=== PATIENT | male | born 1965 | race Caucasian/White ===

== ENCOUNTER 2021-12-30 18:42 | Inpatient (IN) | payer MEDICAID, SELFPAY ==
[2021-12-30] VITALS (13 sets, daily range): BP systolic 108–158; BP diastolic 70–128; PULSE 101–122; RESP 14–30; TEMP 36.7–37.8; O2SAT 21–99; BMI 22.9; BMI 23.3
--- NOTE | 2021-12-30 19:08 | ED.RN ---
PER DR POST- SUICIDAL PRECAUTIONS DISCONTINUED AT THIS TIME.
[2021-12-30 19:31] LABS: Absolute Lymphocyte Count 1.21 X10^3/uL (0.83-4.51); Absolute Neutrophil Count 13.8 X10^3/uL (2.0-7.7); Basophil# 0.05 X10^3/uL; Basophil% 0.3 % (0-1); Eosinophil# 0.01 X10^3/uL; Eosinophils% 0.1 % (0-5); Hemoglobin 16.2 g/dL (13.0-16.5); Lymphocyte # 1.21 X10^3/ul (0.83-4.51); Lymphocyte % 7.4 % (19-41); Mean Corp Hgb Conc 34.5 g/dL (32-36); Mean Corpuscular Hgb 30.1 pg (27.0-32.0); Mean Corpuscular Volume 87.4 fL (80-94); Mean Platelet Vol. 9.3 fl (6.2-12.0); Monocyte# 1.28 X10^3/uL; Monocyte% 7.8 % (0-10); NRBC Flagged by Analyzer 0 % (0-5); Neutrophil # 13.81 X10^3/uL (2.7-7.7); Neutrophil % 83.8 % (47-70); Platelet Count 284 K/mm3 (150-450); RBC Distribution Width CV 11.9 % (11.6-14.6); RBC Distribution Width SD 37.6 fl (35.1-43.9); Red Blood Count 5.38 M/mm3 (4.6-6.2); White Blood Count 16.5 K/mm3 (4.4-11.0)
--- NOTE | 2021-12-30 19:40 | EDS_ITS ---
HPI History of Present Illness Chief Complaint: Abscess Detail of Chief Complaint: Abscess dorsal distal right forearm and medial distal right leg Informant: patient Onset/Context/Timing Onset: Days Context: Sudden Onset Timing: Continuous Quality: Pain Location: Right upper and right lower extremity Current Severity: Mild Maximum Severity: Moderate Worsened by: Walking and use of extremity Relieved by: Nothing Associated Symptoms Associated Symptoms: Elevated blood sugar Narrative Narrative: Patient is a 56-year-old male with history of diabetes. He states he has not checked his blood sugar since he does not have the financial funds to purchase a monitor. Patient denies double vision, blurred vision loss of vision. Patient denies polyuria, polydipsia or nocturia. Patient denies fever, chills night sweats. Patient does endorse smoking. He denies drug use and specifically IV drug use. He is on no immunosuppressive meds. There is no history rheumatic fever, SBE, murmur, or immunosuppression. Prior similar symptoms: No Recent Illness/Hospitalization: No PFSH PFSH Medical History Anxiety Depression Diabetes Hernia PTSD (post-traumatic stress disorder) Allergy/AdvReac Type Severity Reaction Status Date / Time amoxicillin Allergy Anaphylaxis Verified 12/30/21 19:29 Penicillins [PCN] Allergy Anaphylaxis Verified 12/30/21 19:29 aspirin [ASA] AdvReac Upset Verified 12/30/21 19:29 Stomach bee venom protein (honey bee) AdvReac Anaphylaxis Verified 12/30/21 19:29 ibuprofen AdvReac Upset Verified 12/30/21 19:29 Stomach oxycodone AdvReac Upset Verified 12/30/21 19:29 Stomach Surgical History History of back surgery Hx of neck surgery Social History (Updated 12/30/21 @ 19:[address] García Rush MD) household members: none Smoking Status: Never smoker alcohol intake: never substance use type: does not use ROS ROS ED Constitutional Constitutional ED: Denies chills, fever(s), subjective, sweats or weight loss Eyes Eyes: Denies blurry vision, change in vision or diplopia ENT ENT ED: Denies ear pain, rhinorrhea or sore throat Cardiovascular Cardiovascular: Denies chest pain, orthopnea, palpitations, paroxysmal nocturnal dyspnea or racing heartbeat Respiratory/Chest Respiratory/Chest: Denies cough, dyspnea, dyspnea on exertion, orthopnea or paroxysmal nocturnal dyspnea Gastrointestinal Gastrointestinal: Denies abdominal pain, diarrhea, nausea or vomiting Genitourinary Genitourinary ED: Denies dysuria, hematuria or urinary frequency Musculoskeletal Musculoskeletal: Denies arthralgias, back pain, myalgias or neck pain Integumentary Reports abscess and rash; Denies Abrasions Neurologic Neurologic: Denies headache(s) or paresthesias Psychiatric Psychiatric: Denies anxiety, depression or suicidal ideation Endocrine Endocrinology: Denies cold intolerance or heat intolerance Hematologic/Lymphatic Hematologic/Lymphatic: Denies systems reviewed and no addt'l complaints, except as documented, anemia, easy bleeding or easy bruising EXAM Physical Exam Const Vital Signs: 12/30/21 18:44 12/30/21 18:51 12/30/21 19:27 Temperature 98.0 F 98.0 F 99.1 F Temperature Source Temporal Temporal Oral Pulse Rate 113 H 114 H 108 H Respiratory Rate 24 H 24 H 30 H Blood Pressure 108/75 108/75 122/86 H Blood Pressure Mean 86 86 98 Pulse Ox 98 98 97 Oxygen Delivery Method Room Air Room Air Room Air 12/30/21 20:12 12/30/21 20:14 Temperature 99.0 F 99.0 F Temperature Source Oral Pulse Rate 105 H 107 H Respiratory Rate 18 18 Blood Pressure 150/121 H 150/121 H Blood Pressure Mean 130 Pulse Ox 99 97 Oxygen Delivery Method Room Air Room Air Positive well nourished, well developed and unkempt General Appearance ED: unkempt and well developed; Negative for cyanotic, diaphoretic, NAD or pallor HEENT Reports moist mucous membranes HEENT Narrative: Atraumatic normocephalic. Ears normal. Nares patent. Uvula midline. No deviation of her protrusion. No erythema exudate the posterior pharynx. Eyes PERRL and EOMs intact bilaterally General Eye ED: Negative for pale conjunctiva or scleral icterus Neck no lymphadenopathy, supple and no JVD Chest Wall inspection of chest normal and palpation of chest normal Resp normal respiratory effort and clear to auscultation bilaterally Cardio regular rhythm, S1 normal heart sound, S2 normal heart sound and no murmurs Rate: tachycardic GI normal to inspection, nondistended, normoactive bowel sounds, non-tender, non- distended and no masses; Negative for hepatosplenomegaly Back/Spine no CVA tenderness Extremity Negative for normal to inspection Extremity Narrative: There is an abscess distal dorsal right forearm. There is no lymphangitis. There is no epitrochlear lymphadenopathy. There is no actual lymphadenopathy but he complains of severe pain. There is no evidence of an axillary abscess. He showed a picture of an axillary abscess. There is also an abscess medial distal right leg with cellulitis. There is no lymphangitis. There is no popliteal lymphadenopathy or tenderness. He has significant tenderness in the right inguinal area. There is no obvious lymph nodes. Neuro oriented x3, CN's II-XII intact bilaterally and no sensory deficits noted Sensorium / Orientation: alert Motor Exam: strength 5/5 throughout Psych Psych Narrative: Patient is anxious. Patient states he has problem with anxiety and he can become violent. Appearance: unkempt Skin No no rashes or lesions noted and No no wounds General Skin Exam: Negative for jaundice or pallor MDM MDM MDM Narrative Medical decision making narrative: Patient has multiple abscesses which required drainage. Since patient drank orange juice prior to arrival we will wait an hour before sedating with propofol since I am not able to anesthetized by local infiltration. Sepsis work-up was initiated since he is tachycardic and tachypneic. Based on allergies he was treated with levofloxacin and vancomycin. Lab Data Labs: Laboratory Results - last 24 hr 12/30/21 12/30/21 12/30/21 19:23 19:23 19:23 WBC 16.5 H RBC 5.38 Hgb 16.2 Hct 47.0 MCV 87.4 MCH 30.1 MCHC 34.5 RDW Std Deviation 37.6 RDW Coeff of Mariza 11.9 Plt Count 284 MPV 9.3 Immature Gran % (Auto) 0.600 Neut % (Auto) 83.8 H Lymph % (Auto) 7.4 L [place] % (Auto) 7.8 Eos % (Auto) 0.1 Baso % (Auto) 0.3 Absolute Neuts (auto) 13.8 H Absolute Lymphs (auto) 1.21 Nucleated RBC % 0 Sodium 129 L Potassium 4.9 Chloride 96 L Carbon Dioxide 22.0 Anion Gap 11 BUN 14 Creatinine 1.14 Estim Creat Clear Calc 75.16 Est GFR (MDRD) Af Amer 86 Est GFR (MDRD) Non-Af 71 BUN/Creatinine Ratio 12.3 Glucose 478 H* Lactic Acid 4.9 H* Calcium 10.0 Total Bilirubin 0.70 AST 11 L ALT 25 Alkaline Phosphatase 111 Total Protein 8.0 Albumin 3.0 L Globulin 5.0 H Albumin/Globulin Ratio 0.6 L Procedures Other Procedures Procedure(s): 1. Deep sedation using propofol 2. I&D of right forearm and right leg abscess Patient was informed this benefits using propofol and risk benefits of I&D. He was explained the need for I&D. He understands there is increased risk with sedation; however, he states because of his posttraumatic stress disorder he would not be able to tolerate being injected. Timeout was taken. Start time 2021 End time 2030 Patient received a total of 130 mg of propofol. Patient was prepped draped sterile manner. The forearm and leg abscess were anesthetized by local infiltration and field block. Both abscesses were incised. There was significant. Material noted from both abscesses. Cavity of the forearm abscess is 4 cm in diameter x 1/2 cm there is no surrounding cellulitis. The abscess involving the leg is involved with cellulitis and was 5-1/2 cm in diameter by half centimeter in depth. The abscesses were irrigated. 1/2 inch iodoform gauze was placed as a wick in both abscesses. There was approximate 15 cc of bloody purulent material that drained from the forearm abscess and 30 cc of purulent material that drained from the leg abscess. Critical Care Time Critical Care Time: Yes Critical care time (excluding procedures): 30-74 minutes (31), Including time spent: (History, physical, documentation, review of prior records), Discussing w/Patient &/or Family/Technical Training Manager, Discussing w/Consultants and Arranging Admission or Transfer Discharge Plan Triage Chief Complaint: Abscess ED Provider: García Rush Dx/Rx/DC Orders Clinical Impression: Sepsis, Acidosis, lactic, Abscess of forearm, right, Cellulitis and abscess of right lower extremity, Acute hyperglycemia Primary Care Provider: Care Physician,No Primary Referrals: Care Physician,No Primary [Primary Care Provider] -
[2021-12-30] MEDS: levoFLOXacin IV 750 MG/150 ML BAG 100 MG IV (19:42)
[2021-12-30 20:09] LABS: ALB/GLOB Ratio 0.6 RATIO (0.9-2.4); AST(SGOT) 11 U/L (15-37); Alanine Aminotransfer ALT/SGPT 25 U/L (16-61); Alkaline Phosphatase 111 U/L (45-117); Anion Gap 11 (5-15); BUN 14 mg/dL (7-18); BUN/Creat Ratio 12.3 RATIO (10-20); Chloride 96 mmol/L (98-107); Creatinine, Serum 1.14 mg/dL (0.70-1.30); EST Glomerular Filtration Rate 71 mL/min (>60); Est Glom Filt Rate - Afr Amer 86 mL/min (>60); Estimated Creatinine Clearance 75.16 ml/min; Glucose 478 mg/dL (74-106); Lactic Acid 4.9 mmol/L (0.4-1.9); Potassium 4.9 mmol/L (3.5-5.1); Sodium Level 129 mmol/L (136-145)
[2021-12-30] MEDS: Propofol 200 MG/20 ML Vial IV BOLUS (20:23)
[2021-12-30] MEDS: Lidocaine 1% (20 ml mdv) 20 ML Vial INFILT (20:24)
--- NOTE | 2021-12-30 20:32 | HP.PCM.HOS_ITS ---
HPI - General General Date of Admission: 12/30/21 Date of Service: 12/30/21 Chief Complaint: right arm and right leg abscess HPI Narrative LIA PALM, is a 56 M with a PMH as outlined who presents via the ED with a complaint of right arm and right leg abscess. he is diabetic but doesnt check his blood sugar. He complains of abscesses on his right arm and right leg. Patient states he has been having recurrent abscesses all over his body including the back of his neck, his right axilla and on his torso. He denies any trauma and says that he is currently homeless of his living conditions are not very good and he thinks this is contributing to this. He has lanced some of the abscesses himself for them to drain. About a couple of weeks ago he noticed that he was developing an abscess on his right lower extremity and right fore arm. These abscesses gradually enlarged to the became very painful. He developed associated fever and chills so he decided to come into the ED. He is not on any medication for diabetes and does not follow any physician. He denied any nausea or vomiting, palpitations, dizziness or any other symptoms. Review of systems otherwise negative. Vitals were temp of 99F, AL of 112 and BP of 145/128 as well as RR of 27, he was saturating at 97% on room air. CBC showed wbc of 16.5 and hb of 16.2 and p latelets of 284. Chemistry showed sodium of 129, potassium of 4.9 and bicarb of 22, with Cr of 1.14 and glucose of 478 as well as lactic acid of 4.9. He had I&D done in the ED and cultures sent. He is being admitted to be managed for sepsis due to cellulitis and abscess of the right arm and right leg. [facility] Medical History Anxiety Depression Diabetes Hernia PTSD (post-traumatic stress disorder) Home Medications duloxetine 30 mg capsule,delayed release 30 mg PO DAILY Check with primary doctor 12/30/21 [History Last Taken Unknown] Allergy/AdvReac Type Severity Reaction Status Date / Time amoxicillin Allergy Anaphylaxis Verified 12/30/21 19:29 Penicillins [PCN] Allergy Anaphylaxis Verified 12/30/21 19:29 aspirin [ASA] AdvReac Upset Verified 12/30/21 19:29 Stomach bee venom protein (honey bee) AdvReac Anaphylaxis Verified 12/30/21 19:29 ibuprofen AdvReac Upset Verified 12/30/21 19:29 Stomach oxycodone AdvReac Upset Verified 12/30/21 19:29 Stomach Surgical History History of back surgery Hx of neck surgery Social History (Updated 12/30/21 @ 19:[address] García Rush MD) household members: none Smoking Status: Never smoker alcohol intake: never substance use type: does not use ROS Constitutional Constitutional: Denies anorexia, chills, fatigue, fever(s), malaise or weakness Eyes Eyes: Denies change in vision ENT HEENT: Denies dysphagia, headache(s), nasal congestion or sore throat Cardiovascular Cardiovascular: Reports rapid heart rate; Denies chest pain, dyspnea on exertion, edema, lightheadedness, orthopnea, palpitations or syncope Respiratory/Chest Respiratory/Chest: Denies cough, dyspnea, productive cough, shortness of breath at rest, shortness of breath with exertion or wheezing Gastrointestinal Gastrointestinal: Denies abdominal pain, constipation, diarrhea, dyspepsia, loose stools, nausea or vomiting Genitourinary Genitourinary: Denies burning urination or dysuria Musculoskeletal Musculoskeletal: Denies arthralgias or back pain Neurologic Neurologic: Denies confusion, dizziness, focal weakness or headache(s) Psychiatric Psychiatric: Denies anxiety Endocrine Endocrinology: Denies change in body appearance Hematologic/Lymphatic Hematologic/Lymphatic: Denies anemia Vital Signs Vital Signs Vital Signs: 12/30/21 18:44 12/30/21 18:51 12/30/21 19:27 Temperature 98.0 F 98.0 F 99.1 F Temperature Source Temporal Temporal Oral Pulse Rate 113 H 114 H 108 H Pulse Rate [1 (Initial Baseline)] Pulse Rate [2] Pulse Rate [3] Respiratory Rate 24 H 24 H 30 H Respiratory Rate [1 (Initial Baseline)] Respiratory Rate [2] Respiratory Rate [3] Blood Pressure 108/75 108/75 122/86 H Blood Pressure [1 (Initial Baseline)] Blood Pressure [2] Blood Pressure [3] Blood Pressure Mean 86 86 98 Pulse Ox 98 98 97 Oxygen Delivery Method Room Air Room Air Room Air Oxygen Delivery Method [1 (Initial Baseline)] Oxygen Delivery Method [2] Oxygen Delivery Method [3] Oxygen Flow Rate (L/min) [3] 12/30/21 20:12 12/30/21 20:14 12/30/21 20:21 Temperature 99.0 F 99.0 F Temperature Source Oral Pulse Rate 105 H 107 H Pulse Rate [1 (Initial Baseline)] 112 H Pulse Rate [2] 113 H Pulse Rate [3] 122 H Respiratory Rate 18 18 Respiratory Rate [1 (Initial Baseline)] 27 H Respiratory Rate [2] 15 Respiratory Rate [3] 14 Blood Pressure 150/121 H 150/121 H Blood Pressure [1 (Initial Baseline)] 145/128 H Blood Pressure [2] 145/128 H Blood Pressure [3] 158/72 H Blood Pressure Mean 130 Pulse Ox 99 97 Oxygen Delivery Method Room Air Room Air Oxygen Delivery Method [1 (Initial Baseline)] Room Air Oxygen Delivery Method [2] Room Air Oxygen Delivery Method [3] Nasal Cannula Oxygen Flow Rate (L/min) [3] 6 Weight Weight: 160 lb Body Mass Index (BMI) 22.9 Physical Exam Const alert, oriented x3 and no apparent distress General Appearance: cooperative HEENT normocephalic, head/scalp atraumatic and hearing grossly normal bilaterally Mouth: oral and palatal mucosa normal Eyes PERRL, EOMs intact bilaterally and conjunctivae normal Neck no lymphadenopathy and supple Resp normal respiratory effort, no retractions, no use of accessory muscles and clear to auscultation bilaterally Cardio regular rhythm, S1 normal heart sound, S2 normal heart sound and no murmurs Cardio Narrative: tachycardic GI normal to inspection, nondistended, normoactive bowel sounds, soft to palpation and non-tender Skin Skin Narrative: RLE and RUE wrapped in bandage Neuro oriented x3, CN's II-XII intact bilaterally, moves all extremities and no focal motor deficits Sensorium / Orientation: awake and alert Motor Exam: strength 5/5 throughout Psych affect normal Results Lab / Micro Data Result Diagrams: 12/30/21 19:23 12/30/21 19:23 Labs: Laboratory Results - last 24 hr 12/30/21 19:23: WBC 16.5 H, RBC 5.38, Hgb 16.2, Hct 47.0, MCV 87.4, MCH 30.1, MCHC 34.5, RDW Std Deviation 37.6, RDW Coeff of Mariza 11.9, Plt Count 284, MPV 9.3, Immature Gran % (Auto) 0.600, Neut % (Auto) 83.8 H, Lymph % (Auto) 7.4 L, [place] % (Auto) 7.8, Eos % (Auto) 0.1, Baso % (Auto) 0.3, Absolute Neuts (auto) 1 3.8 H, Absolute Lymphs (auto) 1.21, Nucleated RBC % 0 12/30/21 19:23: Sodium 129 L, Potassium 4.9, Chloride 96 L, Carbon Dioxide 22.0, Anion Gap 11, BUN 14, Creatinine 1.14, Estim Creat Clear Calc 75.16, Est GFR (MDRD) Af Amer 86, Est GFR (MDRD) Non-Af 71, BUN/Creatinine Ratio 12.3, Glucose 478 H*, Calcium 10.0, Total Bilirubin 0.70, AST 11 L, ALT 25, Alkaline Phosphatase 111, Total Protein 8.0, Albumin 3.0 L, Globulin 5.0 H, Albumin/Globulin Ratio 0.6 L 12/30/21 19:23: Lactic Acid 4.9 H* Assessment & Plan Assessment/Plan (1) Sepsis: (2) Acidosis, lactic: (3) Abscess of forearm, right: (4) Cellulitis and abscess of right lower extremity: PLAN: Plan #Sepsis due to cellulitis and abscess of right forearm and RLE * admit to PCU * patient is tachycardic, has leucocytosis and also has lactic acidosis * I&D done in the ED, and samples sent for culture * get blood cultures * start on IV vancomycin and zosyn * hydrate with IVF * check A1C * consult wound care * #Type 2 diabetes mellitus * Does not check his sugars at home because he says he does not have the funds for machine. * Does not appear to be on any medication * Check A1c. Insulin sliding scale. Accu-Cheks ACH S. * #Pseudohyponatremia * Sodium is 129 but with glucose of 178, corrected sodium is 135. * Hydrate gently with IV fluids and trend * #Lactic acidosis: Lactic acid is 4.9. This likely due to sepsis. Hydrate with fluids and trend lactic acid. DVT prophylaxis: Lovenox CODE STATUS:full code * Patient counseled extensively about different types of CODE STATUS including full code, DNR CCA and DNR CCA. Patient elects to be full code. * Total [id number] time 17 minutes. Charges/Coding Visit Charges Inpatient E&M: 44410 Init Hosp L3 Procedures Hospitalists Procedures: 15967 Advncd Care Plan 30 Min
[2021-12-30] MEDS: Insulin Lispro 100 UNIT/ML INSULN.PEN 8 UNIT SC (20:54)
[2021-12-30] MEDS: 0.9% Normal Saline 1,000 ML 150 ML IV (21:57)
[2021-12-30] MEDS: Insulin Lispro 100 UNIT/ML INSULN.PEN SC (22:16)
--- NOTE | 2021-12-30 22:39 | PCM.RX.CS ---
Consult Pharmacy has been consulted to manage selected antiobiotic: Vancomycin Type of Consult: New start Suspected Infection: Sepsis Labs: Sodium 129 mmol/L (136-145) L 12/30/21 19:23 Potassium 4.9 mmol/L (3.5-5.1) 12/30/21 19:23 Chloride 96 mmol/L (98-107) L 12/30/21 19:23 Carbon Dioxide 22.0 mmol/L (21.0-32.0) 12/30/21 19:23 Anion Gap 11 (5-15) 12/30/21 19:23 BUN 14 mg/dL (7-18) 12/30/21 19:23 Creatinine 1.14 mg/dL (0.70-1.30) 12/30/21 19:23 Est GFR (MDRD) Af Amer 86 mL/min (>60) 12/30/21 19:23 Est GFR (MDRD) Non-Af 71 mL/min (>60) 12/30/21 19:23 BUN/Creatinine Ratio 12.3 RATIO (10-20) 12/30/21 19:23 Glucose 478 mg/dL (74-106) H* 12/30/21 19:23 Weight used for dosin.1 kg Estimated Creatinine Clearance: 78.3 Goal Trough: 15-20 mcg/mL Pharmacy Plan for Drug Dosing: Pharmacy Service will continue to monitor and adjust dosing as required. Medications Vancomycin HCl (Vancomycin) 1,000 mg in 200 mls @ 200 mls/hr IV Q12H SUSAN Discontinued Medications Vancomycin HCl 1,750 mg/ (Sodium Chloride) 535 mls @ 250 mls/hr IV X1 ONE Stop: 12/30/21 21:16 Last Admin: 12/30/21 20:59 Dose: 250 mls/hr Follow-Up Labs: Trough Vancomycin Labs to be done on [date and time ordered]: 01/01 @ 6425
[2021-12-30 22:41] LABS: Hemoglobin A1c 11.5 % (3.8-5.6)
[2021-12-30 23:26] LABS: Reflex Lactate? Y
[2021-12-31] VITALS (9 sets, daily range): BP systolic 110–134; BP diastolic 64–86; PULSE 90–105; RESP 16–17; TEMP 36.6–37; O2SAT 92–98
[2021-12-31 01:10] LABS: Lactic Acid 1.6 mmol/L (0.4-1.9)
[2021-12-31 01:50] LABS: Bedside Glucose 366 mg/dL (74-106)
[2021-12-31] MEDS: 0.9% Normal Saline 1,000 ML 150 ML IV (04:35)
[2021-12-31] MEDS: Insulin Lispro 100 UNIT/ML INSULN.PEN SC ×4 (07:11→21:32)
[2021-12-31 07:40] LABS: Bedside Glucose 263 mg/dL (74-106)
--- NOTE | 2021-12-31 07:48 | PN.HOSP_ITS ---
Subjective Subjective Follow-up for multiple abscesses and recent right axillary abscess, as patient self drained Patient stated he had right axillary abscess with drain and it drained himself with a lot of pain. He is homeless and afraid of large bill. Objective Data Objective Data Vital Signs: Vital Signs Temp Pulse Resp BP Pulse Ox O2 Del Method O2 Flow Rate 100.0 F H 99 17 121/77 H 97 Room Air 6 12/30/21 21:09 12/31/21 03:43 12/30/21 22:00 12/30/21 21:09 12/30/21 22:00 12/30/21 22:00 12/30/21 20:21 Oxygen Flow Rate (L/min) [3] 6 Oxygen Delivery Method [3] Nasal Cannula Oxygen Delivery Method [2] Room Air Oxygen Delivery Method [1 ( Room Air Initial Baseline)] Oxygen Delivery Method Room Air Weight: 167 lb 12.348 oz Body Mass Index (BMI) 23.3 Intake & Output: Intake and Output for Last 24 Hours 12/29/21 12/30/21 12/31/21 23:59 23:59 23:59 Intake Total 150 / 150 1032.5 / 1032.5 Output Total 150 / 150 Balance 150 / 50 882.5 / 882.5 Lab / Micro Data Result Diagrams: 12/31/21 06:40 12/31/21 06:40 Labs: Laboratory Results - last 24 hr 12/30/21 19:23: WBC 16.5 H, RBC 5.38, Hgb 16.2, Hct 47.0, MCV 87.4, MCH 30.1, MCHC 34.5, RDW Std Deviation 37.6, RDW Coeff of Mariza 11.9, Plt Count 284, MPV 9.3, Immature Gran % (Auto) 0.600, Neut % (Auto) 83.8 H, Lymph % (Auto) 7.4 L, Parker % (Auto) 7.8, Eos % (Auto) 0.1, Baso % (Auto) 0.3, Absolute Neuts (auto) 13.8 H, Absolute Lymphs (auto) 1.21, Nucleated RBC % 0 12/30/21 19:23: Sodium 129 L, Potassium 4.9, Chloride 96 L, Carbon Dioxide 22.0, Anion Gap 11, BUN 14, Creatinine 1.14, Estim Creat Clear Calc 75.16, Est GFR (MDRD) Af Amer 86, Est GFR (MDRD) Non-Af 71, BUN/Creatinine Ratio 12.3, Glucose 478 H*, Calcium 10.0, Total Bilirubin 0.70, AST 11 L, ALT 25, Alkaline Phosphatase 111, Total Protein 8.0, Albumin 3.0 L, Globulin 5.0 H, Albumin/Globulin Ratio 0.6 L 12/30/21 19:23: Lactic Acid 4.9 H* 12/30/21 19:23: Hemoglobin A1c 11.5 H 12/30/21 21:57: POC Glucose 366 H 12/31/21 00:06: Lactic Acid 1.6 12/31/21 07:10: POC Glucose 263 H Physical Exam Narrative Seen and examined. General: Alert, Oriented x3, Cooperative HEENT: Atraumatic, PERRLA, EOMI, Normocephalic Oral: No Gingival or Mucosal Lesions/ Ulcerations Neck: Supple, No JVD, Negative Carotid Bruits Lungs: Air entry diminished in bilateral lung bases. No crepitation/rhonchi. Cardiovascular: Regular rate, Regular Rhythm, Normal S1, Normal S2, No murmurs Abdomen: Bowel Sounds Present, Soft, Non Tender, Non-Distended : No renal angle tenderness. No suprapubic tenderness. Extremities: No edema, Capillary Refill Less than 3 Seconds Skin: Multiple small pustules and microabscesses on the skin surface. Large abscesses on right forearm and right leg drained in ED. Scar in the right axillary with induration but no palpable abscess. Right axillary lymphadenopathy Musculoskeletal: No Tenderness to Palpation of Joints or Extremities. Mild tenderness in left ankle, chronic. Had multiple instances of left ankle rolling over, last 1 year ago Neurological: Cranial nerves II-XII grossly intact, DTR 2+/4 and Symmetrical, Neuro grossly intact Psych/Mental Status: Normal Affect, Appropriate. Assessment & Plan Assessment/Plan (1) Sepsis: (2) Acidosis, lactic: (3) Abscess of forearm, right: (4) Cellulitis and abscess of right lower extremity: PLAN: Plan This 56-year-old question gentleman with history of diabetes was admitted with Pain over right upper and right lower extremity, hyperglycemia found to have abscesses in distal right forearm and medial distal right leg. Has a history of recurrent abscesses all over the body including the back of his neck, right axilla and torso. Patient is homeless. Fever, temperature 99 Fahrenheit. # cellulitis and abscess of right forearm and RLE: The patient is being admitted in PCU patient does not meet the criteria of sepsis as he does not have 2 or more evidence of organ dysfunction. Patient has lactic acidosis, leukocytosis, tachycardia, leukocytosis. Sepsis ruled out. Patient is admitted in PCU. Patient has leukocytosis with left shift and lactic acidosis. Heart rate better. Prelim wound abscess showing staph most likely MRSA. Patient is covered with vancomycin and Zosyn. Blood culture pending. Wound care consult #Type 2 diabetes mellitus * The patient does not check his sugars at home because he says he does not have the funds for machine. * Not on any antidiabetic medication * A1c 11.5%. Glucose is high uncontrolled 268-366. Insulin dose uptitrated. Monitor Accu-Chek H&H's covered with sliding scale * #Pseudohyponatremia * Sodium is 129 but with glucose of 178, corrected sodium is 135. * Hydrate gently with IV fluids repeat sodium 133. Continue IV fluid. #Lactic acidosis: Lactic acid is 4.9. Repeat lactic acid 1.6. Lactic acidosis resolved. DVT prophylaxis: Lovenox CODE STATUS:full code * Patient counseled extensively about different types of CODE STATUS including full code, DNR CCA and DNR CCA. Patient elects to be full code. * Total [id number] time 17 minutes. Microbiology Past 72 Hours 12/30/21 20:47 Wound Abcess - Right Forearm Gram Stain - Final 12/30/21 20:47 Wound Abcess - Right Forearm Wound Culture - Preliminary Staphylococcus aureus 12/30/21 20:47 Wound Abcess - Leg, Right Gram Stain - Final 12/30/21 20:47 Wound Abcess - Leg, Right Wound Culture - Preliminary Staphylococcus aureus Laboratory Results 12/30/21 19:23: WBC 16.5 H, RBC 5.38, Hgb 16.2, Hct 47.0, MCV 87.4, MCH 30.1, MCHC 34.5, RDW Std Deviation 37.6, RDW Coeff of Mariza 11.9, Plt Count 284, MPV 9.3, Immature Gran % (Auto) 0.600, Neut % (Auto) 83.8 H, Lymph % (Auto) 7.4 L, Parker % (Auto) 7.8, Eos % (Auto) 0.1, Baso % (Auto) 0.3, Absolute Neuts (auto) 13.8 H, Absolute Lymphs (auto) 1.21, Nucleated RBC % 0 12/30/21 19:23: Sodium 129 L, Potassium 4.9, Chloride 96 L, Carbon Dioxide 22.0, Anion Gap 11, BUN 14, Creatinine 1.14, Estim Creat Clear Calc 75.16, Est GFR (MDRD) Af Amer 86, Est GFR (MDRD) Non-Af 71, BUN/Creatinine Ratio 12.3, Glucose 478 H*, Calcium 10.0, Total Bilirubin 0.70, AST 11 L, ALT 25, Alkaline Phosphatase 111, Total Protein 8.0, Albumin 3.0 L, Globulin 5.0 H, Albumin/Globulin Ratio 0.6 L 12/30/21 19:23: Lactic Acid 4.9 H* 12/30/21 19:23: Hemoglobin A1c 11.5 H 12/30/21 21:57: POC Glucose 366 H 12/31/21 00:06: Lactic Acid 1.6 12/31/21 06:40: WBC 14.6 H, RBC 4.87, Hgb 14.8, Hct 43.1, MCV 88.5, MCH 30.4, MCHC 34.3, RDW Std Deviation 38.3, RDW Coeff of Mariza 11.9, Plt Count 257, MPV 9.7, Immature Gran % (Auto) 0.800, Neut % (Auto) 79.7 H, Lymph % (Auto) 9.5 L, Parker % (Auto) 9.5, Eos % (Auto) 0.2, Baso % (Auto) 0.3, Absolute Neuts (auto) 11.6 H, Absolute Lymphs (auto) 1.38, Nucleated RBC % 0 12/31/21 06:40: Sodium 133 L, Potassium 4.4, Chloride 100, Carbon Dioxide 24.0, Anion Gap 9, BUN 12, Creatinine 0.71, Estim Creat Clear Calc 125.21, Est GFR (MDRD) Af Amer 147, Est GFR (MDRD) Non-Af 121, BUN/Creatinine Ratio 16.8, Glucose 243 H, Calcium 8.9 12/31/21 07:10: POC Glucose 263 H 12/31/21 08:48: PT 14.9, INR 1.2 12/31/21 11:13: POC Glucose 332 H Charges/Coding Visit Charges Inpatient E&M: 92548 Subs Hosp L2
[2021-12-31] MEDS: DULoxetine Hcl 30 MG Capsule PO (08:10)
[2021-12-31] MEDS: Vancomycin IV 1,000 MG/200 ML BAG 200 MG IV ×2 (08:10→16:04)
[2021-12-31 08:12] LABS: Absolute Lymphocyte Count 1.38 X10^3/uL (0.83-4.51); Absolute Neutrophil Count 11.6 X10^3/uL (2.0-7.7); Basophil# 0.05 X10^3/uL; Basophil% 0.3 % (0-1); Eosinophil# 0.03 X10^3/uL; Eosinophils% 0.2 % (0-5); Hematocrit 43.1 % (40-54); Hemoglobin 14.8 g/dL (13.0-16.5); Lymphocyte # 1.38 X10^3/ul (0.83-4.51); Lymphocyte % 9.5 % (19-41); Mean Corp Hgb Conc 34.3 g/dL (32-36); Mean Corpuscular Hgb 30.4 pg (27.0-32.0); Mean Corpuscular Volume 88.5 fL (80-94); Mean Platelet Vol. 9.7 fl (6.2-12.0); Monocyte# 1.38 X10^3/uL; Monocyte% 9.5 % (0-10); NRBC Flagged by Analyzer 0 % (0-5); Neutrophil # 11.64 X10^3/uL (2.7-7.7); Neutrophil % 79.7 % (47-70); Platelet Count 257 K/mm3 (150-450); RBC Distribution Width CV 11.9 % (11.6-14.6); RBC Distribution Width SD 38.3 fl (35.1-43.9); Red Blood Count 4.87 M/mm3 (4.6-6.2); White Blood Count 14.6 K/mm3 (4.4-11.0)
[2021-12-31] MEDS: Acetaminophen 325 MG Tablet 650 MG PO (08:12)
[2021-12-31 08:23] LABS: Anion Gap 9 (5-15); BUN 12 mg/dL (7-18); BUN/Creat Ratio 16.8 RATIO (10-20); Calcium,Total 8.9 mg/dL (8.5-10.1); Chloride 100 mmol/L (98-107); Creatinine, Serum 0.71 mg/dL (0.70-1.30); EST Glomerular Filtration Rate 121 mL/min (>60); Est Glom Filt Rate - Afr Amer 147 mL/min (>60); Estimated Creatinine Clearance 125.21 ml/min; Glucose 243 mg/dL (74-106); Potassium 4.4 mmol/L (3.5-5.1); Sodium Level 133 mmol/L (136-145)
[2021-12-31 09:35] LABS: International Normalized Ratio 1.2; Prothrombin Time (Protime)PT. 14.9 SECONDS (11.7-14.9)
[2021-12-31 11:35] LABS: Bedside Glucose 332 mg/dL (74-106)
--- NOTE | 2021-12-31 12:16 | CM.ED ---
SIDRA Note SW met with patient. He stated that he feels better. Patient said that he is living in his truck and a tent. Patient said that he lived in his truck last winter. Patient said that he has difficulty finding a residence as he is a felon and thus has difficulty finding a residence. Patient voiced that he has gotten upset as he has to pay the cost of the application fee and then he is told that he can not live there as he has a felony and patient voiced that he has been living in a tent at the end of someone's property. Patient is linked with a casemanager from [facility] in [place] to assist with finding a home. He has an appt with the casemanager on Sunday. Patient said that he has a big KIM truck that he fills with gas that cost $170-180 but those people steal it. Patient reprots he was in the but was a dishonorable discharge so he receives no VA benefits. Patient has a psychiatrist through [facility] in [place] and he sees Dr. Hearn. Patient was asked if he is med compliant and his response was well I got a new script but I don't know what it is. Patient said that he has Section 8 voucher. Patient voiced no issues or concerns except housing. SIDRA provided patient with number for homeless navigator and [facility] resource guide. Plan: Resources provided Ciera JEFFERSON
--- NOTE | 2021-12-31 12:28 | PCM.RX.CS ---
Consult Pharmacy has been consulted to manage selected antiobiotic: Vancomycin Type of Consult: Follow-up Labs: Sodium 133 mmol/L (136-145) L 12/31/21 06:40 Potassium 4.4 mmol/L (3.5-5.1) 12/31/21 06:40 Chloride 100 mmol/L (98-107) 12/31/21 06:40 Carbon Dioxide 24.0 mmol/L (21.0-32.0) 12/31/21 06:40 Anion Gap 9 (5-15) 12/31/21 06:40 BUN 12 mg/dL (7-18) 12/31/21 06:40 Creatinine 0.71 mg/dL (0.70-1.30) 12/31/21 06:40 Est GFR (MDRD) Af Amer 147 mL/min (>60) 12/31/21 06:40 Est GFR (MDRD) Non-Af 121 mL/min (>60) 12/31/21 06:40 BUN/Creatinine Ratio 16.8 RATIO (10-20) 12/31/21 06:40 Glucose 243 mg/dL (74-106) H 12/31/21 06:40 Goal Trough: 15-20 mcg/mL Pharmacy Plan for Drug Dosing: DAILY ASSESSMENT Current Vancomcyin Dose: 1000mg q12h (,) Number of Doses Received: x1 loading dose, x1 1000mg dose Current Renal Function: SrCr 0.71 Renal Function Trend: SrCr improving (was 1.14 on 12/30/21) Lab/Micro: Any Change in Vanc Plan: recommend increasing from 1000mg q12 to 1000mg q8 based on pts improving renal function. Pending Level: new trough 12/31/21 at 2330 Pharmacy Service will continue to monitor and adjust dosing as required. Follow-Up Labs: Trough Vancomycin - 12/31/21 at 2330
--- NOTE | 2021-12-31 13:20 | CASEMGMT ---
RN CM CELL LEAD CM to room to meet with patient for initial transition planning/care coordination assessment. RN PANKAJ introduced self and role at [facility]. Pt voices understanding and consents to assessment at this time. Pt resting in bed in no distress at this time. Pt is A/O at this time and answers all questions appropriately. Care providers, pharmacy, and demographics verified/updated at this time. PCP: No PCP. Pt provided w/lists of local PCP's. Pt also made aware of [facility] van transportation services and which PCP's they can take him to, as pt states the water pump in his truck needs replaced and he does not have the finances for it currently. Specialists: Dr Hearn--psychiatrist @ [facility] in [place], counselor, in [place]. Preferred Pharmacy: [facility] Insurance: [facility] Community Plan [facility] Prescription Benefit: Yes Living Will/HPOA: Pt states he has done LW and HPOA in the past at another hospital, but he does not remember the name of the hospital. He states his friend, Lillie Mckeon, is his HPOA. He states he has not spoken to her for awhile and does not have her number, but states she is the daughter of the world renowned chef and restaurant owner of [employer] in [place]. He states she should have copies of all of his documents he completed at that time. LNOK: Pt states his friend, Lillie, is his POA. Pt states he does have a daughter, Polina Aldana, who lives by [place], [place] but he has not spoken w/her for years. Pt states his father is not living and he is not sure if his mother is still living, stating, Its' been 10 or more years since I've checked. He states he has one living sibling, Kerrie King, but he also has not spoken to her for 15 or more years. Living Arrangements: Pt is currently homeless and has been staying in his truck or in a tent w/a friend. Pt reports he usually gets his groceries from [employer] or from a food pantry. Pt states a CM from [facility] is scheduled to meet w/him @ the on on Sunday to help assist him. Ciera VALENTE, has met w/pt and provided resources. See SIDRA notes. Transportation: Pt states drives self. He has a truck but states the water pump needs replaced and he does not have the finances for it currently. He states it still runs and states, I made it to the hospital without it over-heating. DME: Pt states he used to have a glucometer but no longer has it and does not have the finances to purchase a new one. Pt states he thinks it has been 2-3 yrs since getting the previous glucometer through his insurance. RN PANKAJ informed him a script can be provided @ discharge and can try to bill it through insurance. Pt states he may need either a cane or a walker @ discharge. PT/OT evals pending. HHC/SNF: No hx of either. CM to follow for further discharge planning/needs. Pt voices no further concerns/needs at this time. Advised pt to ask for CM if any further questions/concerns/needs arise. Voices understanding. PLAN: PT/OT evals pending. Pt may need a walker @ discharge. Pt will need a script for glucometer. If insurance will not cover for replacement, may need further resources/assistance, such as N[facility] Garcia. Lalo ROSALES RN CM
[2021-12-31] MEDS: Glucerna Shake 120 ML LIQUID PO ×3 (14:23→21:32)
[2021-12-31 16:45] LABS: Bedside Glucose 295 mg/dL (74-106)
[2021-12-31 18:59] LABS: M R Staph aureus DNA By PCR POSITIVE (Negative); Probe Check PASS
--- NOTE | 2021-12-31 20:01 | CASEMGMT ---
SW went back to the room to speak with patient as when SW met with him earlier the CLAM BED LABORER came to make an assessment. SW spoke to patient about his medication for psych and telling the MD's the name or giving them the prescription so patient can resume his psychiatric medication. Patient voiced that the MD's have started his medications. SW asked about patient feeling SI or HI and patient denied current SI/HI. No further concerns or issues voices. SW remains available if needs arise. Ciera JEFFERSON
[2021-12-31 21:55] LABS: Bedside Glucose 278 mg/dL (74-106)
[2021-12-31 22:08] LABS: M R Staph aureus DNA By PCR POSITIVE (Negative); Probe Check PASS; Staph aureus DNA By PCR POSITIVE (Negative)
[2021-12-31 22:09] LABS: M R Staph aureus DNA By PCR POSITIVE (Negative); Probe Check PASS; Staph aureus DNA By PCR POSITIVE (Negative)
--- NOTE | 2021-12-31 22:24 | PCM.RX.CS ---
Consult Pharmacy has been consulted to manage selected antiobiotic: Vancomycin Type of Consult: Follow-up Labs: Sodium 133 mmol/L (136-145) L 12/31/21 06:40 Potassium 4.4 mmol/L (3.5-5.1) 12/31/21 06:40 Chloride 100 mmol/L (98-107) 12/31/21 06:40 Carbon Dioxide 24.0 mmol/L (21.0-32.0) 12/31/21 06:40 Anion Gap 9 (5-15) 12/31/21 06:40 BUN 12 mg/dL (7-18) 12/31/21 06:40 Creatinine 0.71 mg/dL (0.70-1.30) 12/31/21 06:40 Est GFR (MDRD) Af Amer 147 mL/min (>60) 12/31/21 06:40 Est GFR (MDRD) Non-Af 121 mL/min (>60) 12/31/21 06:40 BUN/Creatinine Ratio 16.8 RATIO (10-20) 12/31/21 06:40 Glucose 243 mg/dL (74-106) H 12/31/21 06:40 Microbiology: Microbiology 12/30/21 20:47 Wound Abcess - Right Forearm Gram Stain - Final 12/30/21 20:47 Wound Abcess - Right Forearm Wound Culture - Preliminary Staphylococcus aureus 12/30/21 20:47 Wound Abcess - Leg, Right Gram Stain - Final 12/30/21 20:47 Wound Abcess - Leg, Right Wound Culture - Preliminary Staphylococcus aureus Goal Trough: 15-20 mcg/mL Pharmacy Plan for Drug Dosing: Pharmacy Service will continue to monitor and adjust dosing as required. DOSE @ 1600 NOT RAN, STARTED @ 2200. TROUGH DUE AT 2330. D/C TROUGH, RETIME DOSES GOING FORWARD, AND DRAW TROUGH TOMORROW AT 2130 Follow-Up Labs: Trough Vancomycin Labs to be done on [date and time ordered]: 01/01 @ 213
[2022-01-01] VITALS (10 sets, daily range): BP systolic 112–130; BP diastolic 56–90; PULSE 78–101; RESP 16–18; TEMP 36.4–36.9; O2SAT 94–100
[2022-01-01] MEDS: 0.9% Saline Lock 10 ML Syringe IV ×3 (05:01→23:22)
--- NOTE | 2022-01-01 06:06 | NURSING ---
Patient noted to be in V-tach on the monitor. Entered patient's room, patient denies any symptoms with this. Patient instructed to perform vagal maneuvers and he did so which resulted in him converting back to a NSR. VSS. Will continue to monitor.
[2022-01-01] MEDS: Insulin Lispro 100 UNIT/ML INSULN.PEN SC ×4 (06:46→23:07)
--- NOTE | 2022-01-01 06:54 | NURSING ---
Patient's label for his vancomycin will not scan. Pharmacist requests that medication be sent down to be relabeled. Med will likely be late due to this.
[2022-01-01] MEDS: Vancomycin IV 1,000 MG/200 ML BAG 200 MG IV ×2 (06:58→15:49)
[2022-01-01 07:05] LABS: Bedside Glucose 242 mg/dL (74-106)
[2022-01-01 07:23] LABS: Absolute Lymphocyte Count 1.28 X10^3/uL (0.83-4.51); Absolute Neutrophil Count 5.4 X10^3/uL (2.0-7.7); Basophil# 0.04 X10^3/uL; Basophil% 0.5 % (0-1); Eosinophil# 0.15 X10^3/uL; Hematocrit 42.6 % (40-54); Hemoglobin 14.9 g/dL (13.0-16.5); Lymphocyte # 1.28 X10^3/ul (0.83-4.51); Lymphocyte % 16.8 % (19-41); Mean Corpuscular Hgb 31.2 pg (27.0-32.0); Mean Corpuscular Volume 89.1 fL (80-94); Mean Platelet Vol. 9.5 fl (6.2-12.0); Monocyte# 0.77 X10^3/uL; Monocyte% 10.1 % (0-10); NRBC Flagged by Analyzer 0 % (0-5); Neutrophil # 5.35 X10^3/uL (2.7-7.7); Neutrophil % 69.9 % (47-70); Platelet Count 258 K/mm3 (150-450); RBC Distribution Width CV 11.9 % (11.6-14.6); RBC Distribution Width SD 37.9 fl (35.1-43.9); Red Blood Count 4.78 M/mm3 (4.6-6.2); White Blood Count 7.6 K/mm3 (4.4-11.0)
[2022-01-01 07:46] LABS: Anion Gap 6 (5-15); BUN 13 mg/dL (7-18); BUN/Creat Ratio 19.6 RATIO (10-20); Calcium,Total 8.9 mg/dL (8.5-10.1); Chloride 102 mmol/L (98-107); Creatinine, Serum 0.66 mg/dL (0.70-1.30); EST Glomerular Filtration Rate 132 mL/min (>60); Est Glom Filt Rate - Afr Amer 160 mL/min (>60); Estimated Creatinine Clearance 134.69 ml/min; Glucose 228 mg/dL (74-106); Potassium 4.4 mmol/L (3.5-5.1); Sodium Level 132 mmol/L (136-145)
[2022-01-01] MEDS: Acetaminophen 325 MG Tablet 650 MG PO ×2 (11:09→18:07)
[2022-01-01] MEDS: DULoxetine Hcl 30 MG Capsule PO (11:09)
[2022-01-01] MEDS: Glucerna Shake 120 ML LIQUID PO ×4 (11:10→23:12)
--- NOTE | 2022-01-01 11:38 | PN.HOSP_ITS ---
Subjective Subjective Follow-up for MRSA infection, diffuse skin probably with skin and nasal colonization. No fever. Objective Data Objective Data Vital Signs: Vital Signs Temp Pulse Resp BP Pulse Ox O2 Del Method O2 Flow Rate 97.8 F 91 18 112/76 100 Room Air 6 01/01/22 11:00 01/01/22 11:00 01/01/22 11:00 01/01/22 11:00 01/01/22 11:00 01/01/22 11:00 12/30/21 20:21 Oxygen Flow Rate (L/min) [3] 6 Oxygen Delivery Method [3] Nasal Cannula Oxygen Delivery Method [2] Room Air Oxygen Delivery Method [1 ( Room Air Initial Baseline)] Oxygen Delivery Method Room Air Weight: 167 lb 12.348 oz Body Mass Index (BMI) 23.3 Intake & Output: Intake and Output for Last 24 Hours 12/30/21 12/31/21 01/01/22 23:59 23:59 23:59 Intake Total 150 / 150 3597.5 / 3847.5 1000 / 1000 Output Total 1150 / 1550 1200 / 1200 Balance 150 / 50 2447.5 / 2297.5 -200 / -200 Medical Nutrition Assessment Dietitian: Malnutrition Criteria Met Start: 12/31/21 11:22 Freq: Status: Active Protocol: Document 12/31/21 11:22 (Rec: 12/31/21 11:22 [id number]) Nutrition Malnutrition Evidence of Malnutrition Exists Yes Malnutrition (moderate): Chronic Evidenced By Suboptimal Energy Intake ( Moderate),Weight Loss ( Moderate) Clinical Problem Chronic Disease or Condition Related Malnutrition Etiology chronic, moderate malnutrition related to inadequate energy intake d/t chewing/swallowing difficulty Signs/Symptoms as evidenced by unintentional wt loss of ~7% x 1-2 months; estimated PO intake meeting < 75% of estimated energy needs >3 months Status Active Problem Recommendation Dietitian Recommendations/Changes will adjust diet to CHO controlled and add 120mL glucerna 4x/day w/ medpass d/t malnutrition. Speech therapy consult. Lab / Micro Data Result Diagrams: 01/01/22 06:53 01/01/22 06:53 Labs: Laboratory Results - last 24 hr 12/31/21 16:03: POC Glucose 295 H 12/31/21 17:00: MRSA (PCR) POSITIVE H 12/31/21 17:00: S.aureus Protein A PCR POSITIVE H, MRSA (PCR) POSITIVE H 12/31/21 17:00: S.aureus Protein A PCR POSITIVE H, MRSA (PCR) POSITIVE H 12/31/21 21:30: POC Glucose 278 H 01/01/22 06:44: POC Glucose 242 H 01/01/22 06:53: WBC 7.6, RBC 4.78, Hgb 14.9, Hct 42.6, MCV 89.1, MCH 31.2, MCHC 35.0, RDW Std Deviation 37.9, RDW Coeff of Mariza 11.9, Plt Count 258, MPV 9.5, Immature Gran % (Auto) 0.700, Neut % (Auto) 69.9, Lymph % (Auto) 16.8 L, Atkinson % (Auto) 10.1 H, Eos % (Auto) 2.0, Baso % (Auto) 0.5, Absolute Neuts (auto) 5.4, Absolute Lymphs (auto) 1.28, Nucleated RBC % 0 01/01/22 06:53: Sodium 132 L, Potassium 4.4, Chloride 102, Carbon Dioxide 24.0, Anion Gap 6, BUN 13, Creatinine 0.66 L, Estim Creat Clear Calc 134.69, Est GFR (MDRD) Af Amer 160, Est GFR (MDRD) Non-Af 132, BUN/Creatinine Ratio 19.6, Glucose 228 H, Calcium 8.9 Micro: Microbiology 12/30/21 20:47 Wound Abcess - Leg, Right Gram Stain - Final 12/30/21 20:47 Wound Abcess - Leg, Right Wound Culture - Final Meth. resistant Staph. aureus 12/30/21 20:47 Wound Abcess - Right Forearm Gram Stain - Final 12/30/21 20:47 Wound Abcess - Right Forearm Wound Culture - Final Meth. resistant Staph. aureus Physical Exam Narrative Seen and examined. General: Alert, Oriented x3, Cooperative HEENT: Atraumatic, PERRLA, EOMI, Normocephalic Oral: No Gingival or Mucosal Lesions/ Ulcerations Neck: Supple, No JVD, Negative Carotid Bruits Lungs: Air entry diminished in bilateral lung bases. No crepitation/rhonchi. Cardiovascular: Regular rate, Regular Rhythm, Normal S1, Normal S2, No murmurs Abdomen: Bowel Sounds Present, Soft, Non Tender, Non-Distended : No renal angle tenderness. No suprapubic tenderness. Extremities: No edema, Capillary Refill Less than 3 Seconds Skin: Multiple small pustules on the skin surface. Large abscesses on right forearm and right leg drained in ED. healing scar in the right axillary with induration but no palpable abscess. Right axillary lymphadenopathy Musculoskeletal: No Tenderness to Palpation of Joints or Extremities. Mild tenderness in left ankle, chronic. Had multiple instances of left ankle rolling over, last 1 year ago Neurological: Cranial nerves II-XII grossly intact, DTR 2+/4 and Symmetrical, Neuro grossly intact Psych/Mental Status: Normal Affect, Appropriate. Assessment & Plan Assessment/Plan (1) Sepsis: (2) Acidosis, lactic: (3) Abscess of forearm, right: (4) Cellulitis and abscess of right lower extremity: PLAN: Plan This 56-year-old question gentleman with history of diabetes was admitted with Pain over right upper and right lower extremity, hyperglycemia found to have abscesses in distal right forearm and medial distal right leg. Has a history of recurrent abscesses all over the body including the back of his neck, right axilla and torso. Patient is homeless. Fever, temperature 99 Fahrenheit. # cellulitis and abscess of right forearm and RLE: The patient is being admitted in PCU patient does not meet the criteria of sepsis as he does not have 2 or more evidence of organ dysfunction. Patient has lactic acidosis, leukocytosis, tachycardia, leukocytosis. Sepsis ruled out. Patient is admitted in PCU. Patient has leukocytosis with left shift and lactic acidosis. Heart rate better. Prelim wound abscess showing staph most likely MRSA. Patient is covered with vancomycin and Zosyn. Blood culture pending. Wound care consult 01/01: Wound culture shows MRSA. Will discontinue cefepime. Leukocytosis resolved. No fever. #Type 2 diabetes mellitus * The patient does not check his sugars at home because he says he does not have the funds for machine. * Not on any antidiabetic medication * A1c 11.5%. Glucose is high uncontrolled 268-366. Insulin dose uptitrated. Monitor Accu-Chek H&H's covered with sliding scale 01/01: Glucose 228, Accu-Cheks from 250?295. Lantus 50 8 subcutaneous daily started. A1c 11.5%. #Pseudohyponatremia * Sodium is 129 but with glucose of 178, corrected sodium is 135. * Hydrate gently with IV fluids repeat sodium 133. 01/01: Sodium is 132. Patient did not show appropriate rise with IV fluid. Discontinue IV fluid. Probably has SIADH due to low solute intake. #Lactic acidosis: Lactic acid is 4.9. Repeat lactic acid 1.6. Lactic acidosis resolved. DVT prophylaxis: Lovenox CODE STATUS:full code * Microbiology Past 72 Hours 12/30/21 20:47 Wound Abcess - Leg, Right Gram Stain - Final 12/30/21 20:47 Wound Abcess - Leg, Right Wound Culture - Final Meth. resistant Staph. aureus 12/30/21 20:47 Wound Abcess - Right Forearm Gram Stain - Final 12/30/21 20:47 Wound Abcess - Right Forearm Wound Culture - Final Meth. resistant Staph. aureus Laboratory Results 12/31/21 16:03: POC Glucose 295 H 12/31/21 17:00: MRSA (PCR) POSITIVE H 12/31/21 17:00: S.aureus Protein A PCR POSITIVE H, MRSA (PCR) POSITIVE H 12/31/21 17:00: S.aureus Protein A PCR POSITIVE H, MRSA (PCR) POSITIVE H 12/31/21 21:30: POC Glucose 278 H 01/01/22 06:44: POC Glucose 242 H 01/01/22 06:53: WBC 7.6, RBC 4.78, Hgb 14.9, Hct 42.6, MCV 89.1, MCH 31.2, MCHC 35.0, RDW Std Deviation 37.9, RDW Coeff of Mariza 11.9, Plt Count 258, MPV 9.5, Immature Gran % (Auto) 0.700, Neut % (Auto) 69.9, Lymph % (Auto) 16.8 L, Atkinson % (Auto) 10.1 H, Eos % (Auto) 2.0, Baso % (Auto) 0.5, Absolute Neuts (auto) 5.4, Absolute Lymphs (auto) 1.28, Nucleated RBC % 0 01/01/22 06:53: Sodium 132 L, Potassium 4.4, Chloride 102, Carbon Dioxide 24.0, Anion Gap 6, BUN 13, Creatinine 0.66 L, Estim Creat Clear Calc 134.69, Est GFR (MDRD) Af Amer 160, Est GFR (MDRD) Non-Af 132, BUN/Creatinine Ratio 19.6, Glucose 228 H, Calcium 8.9 Charges/Coding Visit Charges Inpatient E&M: 87563 Subs Hosp L2
[2022-01-01 12:00] LABS: Bedside Glucose 305 mg/dL (74-106)
[2022-01-01] MEDS: Insulin Glargine-YFGN 100 UNIT/ML Pen 15 UNIT SC (12:37)
[2022-01-01] MEDS: Mupirocin Ointment 22gm Tube 1 APPLIC NASAL ×2 (12:38→23:02)
[2022-01-01 18:11] LABS: Bedside Glucose 287 mg/dL (74-106)
--- NOTE | 2022-01-01 19:14 | NURSING ---
Charting reviewed with Carissa Mcintosh RN
[2022-01-01 22:57] LABS: Vancomycin, Trough Level 11.4 ug/mL (5.0-15.0)
[2022-01-02] VITALS (9 sets, daily range): BP systolic 116–136; BP diastolic 78–86; PULSE 87–96; RESP 16; TEMP 35.9–36.7; O2SAT 96–100
[2022-01-02 01:31] LABS: Bedside Glucose 322 mg/dL (74-106)
--- NOTE | 2022-01-02 04:08 | PCM.RX.CS ---
Consult Pharmacy has been consulted to manage selected antiobiotic: Vancomycin Type of Consult: Follow-up Labs: Sodium 132 mmol/L (136-145) L 01/01/22 06:53 Potassium 4.4 mmol/L (3.5-5.1) 01/01/22 06:53 Chloride 102 mmol/L (98-107) 01/01/22 06:53 Carbon Dioxide 24.0 mmol/L (21.0-32.0) 01/01/22 06:53 Anion Gap 6 (5-15) 01/01/22 06:53 BUN 13 mg/dL (7-18) 01/01/22 06:53 Creatinine 0.66 mg/dL (0.70-1.30) L 01/01/22 06:53 Est GFR (MDRD) Af Amer 160 mL/min (>60) 01/01/22 06:53 Est GFR (MDRD) Non-Af 132 mL/min (>60) 01/01/22 06:53 BUN/Creatinine Ratio 19.6 RATIO (10-20) 01/01/22 06:53 Glucose 228 mg/dL (74-106) H 01/01/22 06:53 Vancomycin Trough 11.4 ug/mL (5.0-15.0) 01/01/22 21:30 Microbiology: Microbiology 12/30/21 19:23 Blood Culture (Wb) - No Site/Description Given Blood Culture - Preliminary 12/30/21 20:47 Wound Abcess - Leg, Right Gram Stain - Final 12/30/21 20:47 Wound Abcess - Leg, Right Wound Culture - Final Meth. resistant Staph. aureus 12/30/21 20:47 Wound Abcess - Right Forearm Gram Stain - Final 12/30/21 20:47 Wound Abcess - Right Forearm Wound Culture - Final Meth. resistant Staph. aureus Goal Trough: 15-20 mcg/mL Pharmacy Plan for Drug Dosing: Pharmacy Service will continue to monitor and adjust dosing as required. TROUGH 11.4 INCREASE TO 1250 Q8H AND FOLLOW UP TROUGH PRIOR TO 4TH DOSE Follow-Up Labs: Trough Vancomycin Labs to be done on [date and time ordered]: 01/02 @ 9245
[2022-01-02 06:02] LABS: Absolute Neutrophil Count 4.5 X10^3/uL (2.0-7.7); Basophil# 0.05 X10^3/uL; Basophil% 0.7 % (0-1); Eosinophil# 0.15 X10^3/uL; Eosinophils% 2.1 % (0-5); Hematocrit 42.8 % (40-54); Hemoglobin 14.6 g/dL (13.0-16.5); Lymphocyte % 22.7 % (19-41); Mean Corp Hgb Conc 34.1 g/dL (32-36); Mean Corpuscular Hgb 30.3 pg (27.0-32.0); Mean Corpuscular Volume 88.8 fL (80-94); Mean Platelet Vol. 9.2 fl (6.2-12.0); Monocyte# 0.67 X10^3/uL; Monocyte% 9.5 % (0-10); NRBC Flagged by Analyzer 0 % (0-5); Neutrophil # 4.52 X10^3/uL (2.7-7.7); Neutrophil % 64.1 % (47-70); Platelet Count 248 K/mm3 (150-450); RBC Distribution Width CV 11.8 % (11.6-14.6); Red Blood Count 4.82 M/mm3 (4.6-6.2); White Blood Count 7.1 K/mm3 (4.4-11.0)
[2022-01-02 06:36] LABS: Anion Gap 5 (5-15); BUN 13 mg/dL (7-18); Calcium,Total 9.2 mg/dL (8.5-10.1); Chloride 102 mmol/L (98-107); Creatinine, Serum 0.62 mg/dL (0.70-1.30); EST Glomerular Filtration Rate 143 mL/min (>60); Est Glom Filt Rate - Afr Amer 173 mL/min (>60); Estimated Creatinine Clearance 143.38 ml/min; Glucose 238 mg/dL (74-106); Potassium 4.6 mmol/L (3.5-5.1); Sodium Level 133 mmol/L (136-145)
[2022-01-02] MEDS: Insulin Lispro 100 UNIT/ML INSULN.PEN SC ×4 (06:53→21:46)
[2022-01-02 07:55] LABS: Bedside Glucose 265 mg/dL (74-106)
[2022-01-02] MEDS: Mupirocin Ointment 22gm Tube 1 APPLIC NASAL ×2 (08:25→21:46)
[2022-01-02] MEDS: DULoxetine Hcl 30 MG Capsule PO (08:26)
[2022-01-02] MEDS: Glucerna Shake 120 ML LIQUID PO ×3 (08:26→21:47)
[2022-01-02] MEDS: Acetaminophen 325 MG Tablet 650 MG PO (08:34)
--- NOTE | 2022-01-02 10:31 | WOUNDNOTE ---
wound photo: right lower leg
--- NOTE | 2022-01-02 10:32 | WOUNDNOTE ---
wound photo: right forearm
[2022-01-02] MEDS: Insulin Glargine-YFGN 100 UNIT/ML Pen 15 UNIT SC (11:33)
--- NOTE | 2022-01-02 11:48 | PCM.DC ---
Discharge Instructions Diet Discharge Diet: Carb Control Diet Activity Discharge Activity: Return to Normal Activity Dressing / Incision Call your doctor if your incision/area has: Continuous Slow Oozing, Increased Redness and Foul Smelling Discharge Call your doctor if you observe: Fever of 101 or Higher Follow Up Care Test Results: Test results from this visit will be discussed in further detail at your follow-up appointment, if applicable. Discharge Plan Admission Admit Date/Time: 12/30/21 20:46 Primary Reason for Your Visit: Cellulitis Attending Provider: Stephanie Nava Primary Care Provider: Care Physician,No Primary Consulting Providers: Hazel Rivera ; aMn Tobar Instructions Additional Instructions / Restrictions: Keep clean dressing covering right leg and right forearm wounds. Discharge Orders/Prescriptions Prescriptions: New insulin glargine-yfgn 100 unit/mL (3 mL) Insulin Pen 20 unit subcut DAILY 30 Days Qty: 15 0RF metformin 500 mg tablet extended release 24 hr 500 mg PO DAILY Qty: 30 0RF doxycycline monohydrate 100 mg capsule 100 mg PO BID Qty: 16 0RF Januvia 25 mg tablet 25 mg PO DAILY Qty: 30 0RF Continued duloxetine 30 mg capsule,delayed release(DR/EC) 30 mg PO DAILY Other Ambulatory Orders: Glucometer (Routine) Timeframe: 1 Day Facility: [facility] - Location: [facility] Ordered By: Sheron Burgos NP Referrals / Follow Up: Care Physician,No Primary [Primary Care Provider] - In 1 Week Jose David Ford MD [Med Staff - Courtesy Staff] - Within 2 Weeks Disposition Disposition (needs filled in before D/C Order can be placed): Home, Self Care
--- NOTE | 2022-01-02 12:04 | PCM.DC.SUM ---
Documented by User: Sheron Burgos NP, FOOD CONCESSION MANAGER-C 01/02/22 12:13 Providers Date of Admission: 12/30/21 Date of Discharge: 01/02/22 Primary Care Physician: No Primary Care Phys Consultations 12/30/21 21:43 Consult: Onc/Wound/manager registration Routine Comment: Reason For Visit: SEPSIS DUE TO CELLULITIS Diagnosis Discharge Diagnosis (1) Sepsis: Status: Acute Code(s): A41.9 - Sepsis, unspecified organism (2) Acidosis, lactic: Status: Acute Code(s): E87.2 - Acidosis (3) Abscess of forearm, right: Status: Acute Code(s): L02.413 - Cutaneous abscess of right upper limb (4) Cellulitis and abscess of right lower extremity: Status: Acute Code(s): L03.115 - Cellulitis of right lower limb; L02.415 - Cutaneous abscess of right lower limb Medications at Discharge Home Medications duloxetine 30 mg capsule,delayed release 30 mg PO DAILY Check with primary doctor 12/30/21 doxycycline monohydrate 100 mg capsule 100 mg PO BID #16 caps 01/02/22 insulin glargine-yfgn 100 unit/mL (3 mL) subcutaneous pen 20 unit (0.2 mL) subcut DAILY 30 days #15 mL 01/02/22 metformin 500 mg tablet,extended release 24 hr 500 mg PO DAILY #30 tabs 01/02/22 sitagliptin 25 mg tablet (Januvia) 25 mg PO DAILY #30 tabs 01/02/22 Hospital Course Operations None Procedures None Summary of Care Provided Hospital Course: Patient is a 56-year-old male admitted 12/30/2021 due to right arm and right leg abscess. 1. Right upper extremity and right lower extremity cellulitis secondary to right forearm and right leg abscess status post I&D-abscess culture growing MRSA. IV vancomycin and IV Zosyn during admission. Leukocytosis resolved. Afebrile. Discharged on doxycycline to complete course. Keep areas covered with clean dressing. Follow-up with PCP within 1 week. 2. Type 2 diabetes mellitus-untreated secondary to being homeless. Hemoglobin A1c 11.5%. Patient does have Medicaid. Discharged with glucometer and testing supplies. Glargine 20 units daily. Metformin XR 500 mg daily. Januvia 25 mg daily. Referred to endocrinology for ongoing follow-up. 3. Pseudohyponatremia-resolved. 4. Depression/anxiety/PTSD-on duloxetine. Encouraged continued outpatient follow-up/counseling. 5. Homeless-complicates management. Patient does have Medicaid and case reviewer. 6. Moderate protein calorie malnutrition-secondary to inadequate oral intake. Follow dietitian recommendation. Patient seen and examined prior to discharge. Physical assessment as noted below. Patient is stable for discharge with follow up recommendations as noted above. This patient was seen by BEATRICE Faith under the supervision of Dr. Nava. Time spent examining patient, reviewing data and subsequent management of care: 24 minutes Physical Exam Const alert and oriented x3 HEENT normocephalic and moist oral mucous membranes Eyes PERRL, EOMs intact bilaterally and conjunctivae normal Neck no lymphadenopathy Resp normal respiratory effort and clear to auscultation bilaterally Cardio regular rate, regular rhythm and no murmurs Peripheral Pulses: pulses 2+ throughout GI normal to inspection, nondistended, normoactive bowel sounds, non-tender and non-distended Extremity normal to inspection Skin no rashes or lesions noted Skin Narrative: Right upper extremity and right lower extremity abscess status post I&D. Dressings intact. Lesions: no lesions Rashes: no rashes Trauma: no lacerations or abrasions Neuro CN's II-XII intact bilaterally, no focal motor deficits, no sensory deficits noted and deep tendon reflexes 2+ bilaterally Psych mental status grossly normal and affect normal Medical Records Data Medical Nutrition Assessment Dietitian: Malnutrition Criteria Met Start: 12/31/21 11:22 Freq: Status: Active Protocol: Document 12/31/21 11:22 (Rec: 12/31/21 11:22 [id number]) Nutrition Malnutrition Evidence of Malnutrition Exists Yes Malnutrition (moderate): Chronic Evidenced By Suboptimal Energy Intake ( Moderate),Weight Loss ( Moderate) Clinical Problem Chronic Disease or Condition Related Malnutrition Etiology chronic, moderate malnutrition related to inadequate energy intake d/t chewing/swallowing difficulty Signs/Symptoms as evidenced by unintentional wt loss of ~7% x 1-2 months; estimated PO intake meeting < 75% of estimated energy needs >3 months Status Active Problem Recommendation Dietitian Recommendations/Changes will adjust diet to CHO controlled and add 120mL glucerna 4x/day w/ medpass d/t malnutrition. Speech therapy consult. Weight / BMI Weight Weight: 167 lb 12.348 oz Body Mass Index (BMI) 23.3 ABG / Lab / Microbiology Data Result Diagrams: 01/02/22 05:30 01/02/22 05:30 Laboratory: Laboratory Results - last 24 hr 01/01/22 17:32: POC Glucose 287 H 01/01/22 21:30: Vancomycin Trough 11.4 01/01/22 23:06: POC Glucose 322 H 01/02/22 05:30: WBC 7.1, RBC 4.82, Hgb 14.6, Hct 42.8, MCV 88.8, MCH 30.3, MCHC 34.1, RDW Std Deviation 38.0, RDW Coeff of Mariza 11.8, Plt Count 248, MPV 9.2, Immature Gran % (Auto) 0.900, Neut % (Auto) 64.1, Lymph % (Auto) 22.7, [place] % (Auto) 9.5, Eos % (Auto) 2.1, Baso % (Auto) 0.7, Absolute Neuts (auto) 4.5, Absolute Lymphs (auto) 1.60, Nucleated RBC % 0 01/02/22 05:30: Sodium 133 L, Potassium 4.6, Chloride 102, Carbon Dioxide 26.0, Anion Gap 5, BUN 13, Creatinine 0.62 L, Estim Creat Clear Calc 143.38, Est GFR (MDRD) Af Amer 173, Est GFR (MDRD) Non-Af 143, BUN/Creatinine Ratio 21.0 H, Glucose 238 H, Calcium 9.2 01/02/22 06:50: POC Glucose 265 H Microbiology: Microbiology 12/30/21 19:23 Blood Culture (Wb) - No Site/Description Given Blood Culture - Preliminary Gram positive luana 12/30/21 19:31 Blood Culture (Wb) - Left Forearm Blood Culture - Preliminary No growth in 48 hours. 12/30/21 20:47 Wound Abcess - Leg, Right Gram Stain - Final 12/30/21 20:47 Wound Abcess - Leg, Right Wound Culture - Final Meth. resistant Staph. aureus 12/30/21 20:47 Wound Abcess - Right Forearm Gram Stain - Final 12/30/21 20:47 Wound Abcess - Right Forearm Wound Culture - Final Meth. resistant Staph. aureus D/C Instructions Discharge Diet: Carb Control Diet Call your doctor if your incision/area has: Continuous Slow Oozing, Increased Redness and Foul Smelling Discharge Call your doctor if you observe: Fever of 101 or Higher Meaningful Use Info Meaningful Use Diagnoses (Choose all that apply): None applicable Discharge Plan Admission Admit Date/Time: 12/30/21 20:46 Primary Reason for Your Visit: Cellulitis Attending Provider: Stephanie Nava Primary Care Provider: Care Physician,No Primary Consulting Providers: Hazel Rivera ; Man Tobar Instructions Additional Instructions / Restrictions: Keep clean dressing covering right leg and right forearm wounds. Discharge Orders/Prescriptions Prescriptions: New insulin glargine-yfgn 100 unit/mL (3 mL) Insulin Pen 20 unit subcut DAILY 30 Days Qty: 15 0RF metformin 500 mg tablet extended release 24 hr 500 mg PO DAILY Qty: 30 0RF doxycycline monohydrate 100 mg capsule 100 mg PO BID Qty: 16 0RF Januvia 25 mg tablet 25 mg PO DAILY Qty: 30 0RF Continued duloxetine 30 mg capsule,delayed release(DR/EC) 30 mg PO DAILY Other Ambulatory Orders: Glucometer (Routine) Timeframe: 1 Day Location: Determined by Patient Ordered By: Sheorn Burgos FOOD CONCESSION MANAGER Referrals / Follow Up: Jose David Ford MD [Med Staff - Courtesy Staff] - 01/05/22 2:45 pm ( out of country until [place]10. appointment is with Suzanne Aldana N.P.) Care Physician,No Primary [Primary Care Provider] - In 1 Week Disposition Disposition (needs filled in before D/C Order can be placed): Home, Self Care Documented by User: Dr. Stephanie Nava MD 01/02/22 15:07 Providers Date of Admission: 12/30/21 Reason For Visit: SEPSIS DUE TO CELLULITIS Diagnosis Discharge Diagnosis (1) Sepsis: Status: Acute Code(s): A41.9 - Sepsis, unspecified organism (2) Acidosis, lactic: Status: Acute Code(s): E87.2 - Acidosis (3) Abscess of forearm, right: Status: Acute Code(s): L02.413 - Cutaneous abscess of right upper limb (4) Cellulitis and abscess of right lower extremity: Status: Acute Code(s): L03.115 - Cellulitis of right lower limb; L02.415 - Cutaneous abscess of right lower limb Medications at Discharge Home Medications duloxetine 30 mg capsule,delayed release 30 mg PO DAILY Check with primary doctor 12/30/21 doxycycline monohydrate 100 mg capsule 100 mg PO BID #16 caps 01/02/22 insulin glargine-yfgn 100 unit/mL (3 mL) subcutaneous pen 20 unit (0.2 mL) subcut DAILY 30 days #15 mL 01/02/22 metformin 500 mg tablet,extended release 24 hr 500 mg PO DAILY #30 tabs 01/02/22 sitagliptin 25 mg tablet (Januvia) 25 mg PO DAILY #30 tabs 01/02/22 ABG / Lab / Microbiology Data Result Diagrams: 01/02/22 05:30 01/02/22 05:30 Discharge Plan Admission Admit Date/Time: 12/30/21 20:46 Primary Reason for Your Visit: Cellulitis Attending Provider: Stephanie Nava Primary Care Provider: Care Physician,No Primary Consulting Providers: Hazel Rivera ; Man Tobar Instructions Additional Instructions / Restrictions: Keep clean dressing covering right leg and right forearm wounds. Discharge Orders/Prescriptions Prescriptions: New insulin glargine-yfgn 100 unit/mL (3 mL) Insulin Pen 20 unit subcut DAILY 30 Days Qty: 15 0RF metformin 500 mg tablet extended release 24 hr 500 mg PO DAILY Qty: 30 0RF doxycycline monohydrate 100 mg capsule 100 mg PO BID Qty: 16 0RF Januvia 25 mg tablet 25 mg PO DAILY Qty: 30 0RF Continued duloxetine 30 mg capsule,delayed release(DR/EC) 30 mg PO DAILY Other Ambulatory Orders: Glucometer (Routine) Timeframe: 1 Day Location: Determined by Patient Ordered By: Sheron Burgos NP Referrals / Follow Up: Jose David Ford MD [Med Staff - Courtesy Staff] - 01/05/22 2:45 pm ( out of country until 01/10. appointment is with Suzanne Aldana N.P.) Care Physician,No Primary [Primary Care Provider] - In 1 Week Disposition Disposition (needs filled in before D/C Order can be placed): Home, Self Care Charges/Coding Addendum Addendum: This patient was seen in conjunction with Sheron Burgos NP. I have independently interviewed and examined the patient and reviewed pertinent historical, laboratory, and other data. I have reviewed her note and concur with her documentation 56-year-old male with past medical history of type II DM, anxiety/depression who presented with right arm and leg abscesses. Patient is homeless and has been having recurrent abscesses all over his body especially in the neck and right axilla and torso. He stated that his living conditions are not that great. He has lanced some of the abscesses to drain. He was admitted as sepsis secondary to cellulitis and abscess to the right forearm and the right lower leg. His wound cultures were positive for MRSA. He was started on vancomycin. Patient is 11.5. He was started on Lantus, metformin and Januvia. He was also referred to endocrinology. He was discharged on doxycycline to complete a 10-day course. On the day of discharge, patient was seen and examined. Denied any new complaint. Physical Exam: Gen: Comfortable, not pale, not jaundiced CVS:HS I +II, regular, no murmurs RESP: Diminished at lung bases GI: BS present and normal, soft, nontender, no palpable organs EXT:No edema, dressing over the right forearm and right mid leg Time spent coordinating all aspects of patient's care, discussing with subspecialty and nursin minutes Visit Charges Inpatient E&M: [id number] Disch Hosp
[2022-01-02 12:10] LABS: Bedside Glucose 241 mg/dL (74-106)
--- NOTE | 2022-01-02 13:06 | CASEMGMT ---
Addendum entered by Meghna Benson 01/02/22 14:37: Script for crutches obtained and faxed to [facility] as pt states no preference for DME company. Antionette at [facility] aware of need for crutches and they were brought to pt room. Therapy worked with pt and pt is still refusing to put weight on right foot and per therapy, crutches are too big for pt and Antionette at [facility] aware. CM to follow. Stephane PAEZ CM Original Note: This RN CM to room to discuss discharge plan. Pt states wasn't aware he was being discharged today and states he had told his CM thru [facility] to meet him here at 1330 tomorrow. Pt is all over the place with d/c plan. Pt states is homeless and has a truck he can stay in or a tent. 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 Pt aware that he is medically stable per hospitalist staff and plan is for discharge. Pt then states that he cannot put weight on right foot and per therapy notes, pt has refused to even attempt to put weight on foot for last several days. Per PICKLING GRADER, pt to be sent home with script for crutches until he is able to put weight on foot again. This RN CM unable to set up C for pt d/t pt being homeless. Pt has been approved for section 8 housing but they are trying to find him a place to stay. Therapy aware to work with pt regarding crutches. Pt has CM in [place] thru [facility], his drivers license has an address listed in [facility], and pt states his tent is on a property in [place]. 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 Pt states that his CM thought that might be a good idea until he can figure out his living situation. CM to follow. Edin VALENTE aware of all, voices understanding. Stephane PAEZ CM
--- NOTE | 2022-01-02 15:09 | CASEMGMT ---
SW attempted to talk with patient about a discharge plan. However, patient has a hard time focusing on discussion. SW asked patient if he would like to go to a custodial for rehab. Patient could not give SW a straight answer. He said he is supposed to meet with his shoe parts caser tomorrow. She was going to come to the hospital tomorrow at 1:30 to meet with him. SW provided patient with a list of?care home facility providers including quality and resource use data and consistent with patient?s preferred geographic region, medical needs, and insurance network were provided from the [facility] Guide. Patient said he doesn't know what to do. Patient said he doesn't know anything about any of the places. Patient said he gets frustrated and shuts down. SW tried to help patient with making a decision and he doesn't know what to do. Patient gave SW his shoe parts caser's name and phone number. Her name is Magdalena Villafuerte and her phone number is [phone]. Patient's counselor's name is Dulce and her contact number is [phone]. SW called patient's shoe parts caser, Magdalena and left her a voice mail requesting a return call. Edna Hernandez MSW KEIRA
--- NOTE | 2022-01-02 15:12 | PCM.PN.HOSP ---
Documented by User: Sheron Burgos NP, BOAT BUILDER AND REPAIRER-C 01/02/22 15:19 Subjective Subjective Patient seen and examined. Plan for discharge home however following discharge, patient had multiple complaints including difficulty walking due to leg cramping/pain and concern for ongoing homeless situation. Social work looking at additional discharge options. Objective Data Objective Data Vital Signs: Vital Signs Temp Pulse Resp BP Pulse Ox O2 Del Method O2 Flow Rate 98.0 F 96 16 129/81 H 98 Room Air 6 01/02/22 11:40 01/02/22 11:40 01/02/22 11:40 01/02/22 11:40 01/02/22 11:40 01/02/22 11:40 12/30/21 20:21 Oxygen Flow Rate (L/min) [3] 6 Oxygen Delivery Method [3] Nasal Cannula Oxygen Delivery Method [2] Room Air Oxygen Delivery Method [1 ( Room Air Initial Baseline)] Oxygen Delivery Method Room Air Weight: 167 lb 12.348 oz Body Mass Index (BMI) 23.3 Intake & Output: Intake and Output for Last 24 Hours 12/31/21 01/01/22 01/02/22 23:59 23:59 23:59 Intake Total 3597.5 / 3847.5 2100 / 2100 1063.25 / 1063.25 Output Total 1150 / 1550 1800 / 2700 1625 / 1625 Balance 2447.5 / 2297.5 300 / -600 -561.75 / -561.75 Medical Nutrition Assessment Dietitian: Malnutrition Criteria Met Start: 12/31/21 11:22 Freq: Status: Active Protocol: Document 12/31/21 11:22 (Rec: 12/31/21 11:22 [id number]) Nutrition Malnutrition Evidence of Malnutrition Exists Yes Malnutrition (moderate): Chronic Evidenced By Suboptimal Energy Intake ( Moderate),Weight Loss ( Moderate) Clinical Problem Chronic Disease or Condition Related Malnutrition Etiology chronic, moderate malnutrition related to inadequate energy intake d/t chewing/swallowing difficulty Signs/Symptoms as evidenced by unintentional wt loss of ~7% x 1-2 months; estimated PO intake meeting < 75% of estimated energy needs >3 months Status Active Problem Recommendation Dietitian Recommendations/Changes will adjust diet to CHO controlled and add 120mL glucerna 4x/day w/ medpass d/t malnutrition. Speech therapy consult. Lab / Micro Data Result Diagrams: 01/02/22 05:30 01/02/22 05:30 Labs: Laboratory Results - last 24 hr 01/01/22 17:32: POC Glucose 287 H 01/01/22 21:30: Vancomycin Trough 11.4 01/01/22 23:06: POC Glucose 322 H 01/02/22 05:30: WBC 7.1, RBC 4.82, Hgb 14.6, Hct 42.8, MCV 88.8, MCH 30.3, MCHC 34.1, RDW Std Deviation 38.0, RDW Coeff of Mariza 11.8, Plt Count 248, MPV 9.2, Immature Gran % (Auto) 0.900, Neut % (Auto) 64.1, Lymph % (Auto) 22.7, Holt % (Auto) 9.5, Eos % (Auto) 2.1, Baso % (Auto) 0.7, Absolute Neuts (auto) 4.5, Absolute Lymphs (auto) 1.60, Nucleated RBC % 0 01/02/22 05:30: Sodium 133 L, Potassium 4.6, Chloride 102, Carbon Dioxide 26.0, Anion Gap 5, BUN 13, Creatinine 0.62 L, Estim Creat Clear Calc 143.38, Est GFR (MDRD) Af Amer 173, Est GFR (MDRD) Non-Af 143, BUN/Creatinine Ratio 21.0 H, Glucose 238 H, Calcium 9.2 01/02/22 06:50: POC Glucose 265 H 01/02/22 11:31: POC Glucose 241 H Micro: Microbiology 12/30/21 19:23 Blood Culture (Wb) - No Site/Description Given Blood Culture - Preliminary Gram positive luana 12/30/21 19:31 Blood Culture (Wb) - Left Forearm Blood Culture - Preliminary No growth in 48 hours. 12/30/21 20:47 Wound Abcess - Leg, Right Gram Stain - Final 12/30/21 20:47 Wound Abcess - Leg, Right Wound Culture - Final Meth. resistant Staph. aureus 12/30/21 20:47 Wound Abcess - Right Forearm Gram Stain - Final 12/30/21 20:47 Wound Abcess - Right Forearm Wound Culture - Final Meth. resistant Staph. aureus Physical Exam Const alert and oriented x3 Orientation / Consciousness: awake, oriented to person, oriented to place and oriented to time HEENT normocephalic and moist oral mucous membranes Eyes PERRL, EOMs intact bilaterally and conjunctivae normal Neck no lymphadenopathy Resp normal respiratory effort and clear to auscultation bilaterally Cardio regular rate, regular rhythm and no murmurs Peripheral Pulses: pulses 2+ throughout GI normal to inspection, nondistended, normoactive bowel sounds, non-tender and non-distended Extremity normal to inspection Skin no rashes or lesions noted Skin Narrative: Right upper extremity and right lower extremity abscess status post I&D.? Dressings intact. Lesions: no lesions Rashes: no rashes Trauma: no lacerations or abrasions Neuro CN's II-XII intact bilaterally, no focal motor deficits, no sensory deficits noted and deep tendon reflexes 2+ bilaterally Psych mental status grossly normal and affect normal Assessment & Plan Assessment/Plan (1) Cellulitis and abscess of right lower extremity: PLAN: Plan 1.? Right upper extremity and right lower extremity cellulitis secondary to right forearm and right leg abscess status post I&D-abscess culture growing MRSA.? IV vancomycin.? Leukocytosis resolved.? Afebrile.? IV Vanc. Plan to discharge on doxycycline to complete course.? Keep areas covered with clean dressing.? 2.? Type 2 diabetes mellitus-untreated secondary to being homeless.? Hemoglobin A1c 11.5%.? Patient does have Medicaid. Glargine 20 units daily.? Metformin XR 500 mg daily.? Januvia 25 mg daily.? 3.? Pseudohyponatremia-resolved. 4. Depression/anxiety/PTSD-on duloxetine.? Encouraged continued outpatient follow-up/counseling. 5. Homeless-complicates management.? Patient does have Medicaid and dependency case manager. 6.? Moderate protein calorie malnutrition-secondary to inadequate oral intake.? Follow dietitian recommendation. This patient was seen by BEATRICE Faith under the supervision of Dr. Nava. Discharge plan: SW working on additional discharge options due to difficult social situation. Time spent examining patient, reviewing data and subsequent management of care: 14 minutes Documented by User: Dr. Stephanie Nava MD 01/02/22 17:11 Objective Data Lab / Micro Data Result Diagrams: 01/02/22 05:30 01/02/22 05:30 Assessment & Plan Assessment/Plan (1) Cellulitis and abscess of right lower extremity: Charges/Coding Addendum Addendum: This patient was seen in conjunction with Sheron Burgos NP. I have independently interviewed and examined the patient and reviewed pertinent historical, laboratory, and other data. I have reviewed her note and concur with her documentation Patient was seen and examined. He was set to be discharged on doxycycline. Patient stated that he did not feel well, had leg cramps, did not feel like he is ready for discharge. Social work consulted and working on probable discharge to custodial facility. Physical Exam: Gen: Comfortable, not pale, not jaundiced CVS:HS I +II, regular, no murmurs RESP: Diminished at lung bases GI: BS present and normal, soft, nontender, no palpable organs EXT:No edema, dressing over the right forearm and the right lower leg ASSESSMENT: 1. Acute right upper extremity and lower extremity MRSA cellulitis/abscesses 2. Type II DM, poorly treated 3. Pseudohyponatremia 4. Anxiety/depression/PTSD 5. Severe protein calorie malnutrition 6. Homelessness Plan: Continue IV vancomycin Continue on Lantus, ISS with blood glucose checks Time spent coordinating all aspects of patient's care, discussing with nursin minutes Visit Charges Inpatient E&M: 79814 Subs Hosp L2
--- NOTE | 2022-01-02 15:29 | CASEMGMT ---
SIDRA met with patient again. SW asked patient if he would be willing to go to a retirement if his insurance approves him. Patient said that would probably be the cleanest thing to do. SW went over the list with patient and he agreed to have referrals sent out to [facility], and [facility]. SW let him know SW will send out referrals to these facilities. Patient will then meet with his family caseworker tomorrow at 130 here at [facility]. SIDRA asked Mally d/c planning aide to please send referrals. SIDRA received a call from Magdalena, patient's family caseworker. She confirmed she will be at [facility] tomorrow at 130 to see patient. She is going to be meeting with him regarding housing. She said it will take some time. SW mentioned SW is going to try and get patient in a retirement short term. She said that is probably a good idea until they can get things together for patient. Plan: SNF pending accepting facility and insurance approval. Edna CROCKETT
--- NOTE | 2022-01-02 15:33 | CASEMGMT ---
Addendum entered by Mally Valente 01/02/22 15:45: Discharge Oyster Picker This flex o writer operator also sent a referral to [facility]. Mally Valente Discharge Oyster Picker Original Note: Discharge Oyster Picker Mally d/mishel membership assistant sent referral to [facility] and [facility] via [facility]. Will follow ip. Plan: [facility], Waiting Acceptance Mally Valente Discharge Oyster Picker
--- NOTE | 2022-01-02 17:08 | NURSING ---
Charting reviewed with Carissa Mcintosh RN
[2022-01-02 17:15] LABS: Bedside Glucose 237 mg/dL (74-106)
[2022-01-02 22:15] LABS: Bedside Glucose 347 mg/dL (74-106)
[2022-01-02 23:24] LABS: Vancomycin, Trough Level 15.6 ug/mL (5.0-15.0)
--- NOTE | 2022-01-03 00:05 | PCM.RX.CS ---
Consult Pharmacy has been consulted to manage selected antiobiotic: Vancomycin Type of Consult: Follow-up Suspected Infection: Sepsis Labs: Sodium 133 mmol/L (136-145) L 01/02/22 05:30 Potassium 4.6 mmol/L (3.5-5.1) 01/02/22 05:30 Chloride 102 mmol/L (98-107) 01/02/22 05:30 Carbon Dioxide 26.0 mmol/L (21.0-32.0) 01/02/22 05:30 Anion Gap 5 (5-15) 01/02/22 05:30 BUN 13 mg/dL (7-18) 01/02/22 05:30 Creatinine 0.62 mg/dL (0.70-1.30) L 01/02/22 05:30 Est GFR (MDRD) Af Amer 173 mL/min (>60) 01/02/22 05:30 Est GFR (MDRD) Non-Af 143 mL/min (>60) 01/02/22 05:30 BUN/Creatinine Ratio 21.0 RATIO (10-20) H 01/02/22 05:30 Glucose 238 mg/dL (74-106) H 01/02/22 05:30 Vancomycin Trough 15.6 ug/mL (5.0-15.0) H 01/02/22 22:50 Microbiology: Microbiology 12/30/21 19:23 Blood Culture (Wb) - No Site/Description Given Blood Culture - Preliminary Gram positive luana 12/30/21 19:31 Blood Culture (Wb) - Left Forearm Blood Culture - Preliminary No growth in 48 hours. 12/30/21 20:47 Wound Abcess - Leg, Right Gram Stain - Final 12/30/21 20:47 Wound Abcess - Leg, Right Wound Culture - Final Meth. resistant Staph. aureus 12/30/21 20:47 Wound Abcess - Right Forearm Gram Stain - Final 12/30/21 20:47 Wound Abcess - Right Forearm Wound Culture - Final Meth. resistant Staph. aureus Goal Trough: 15-20 mcg/mL Pharmacy Plan for Drug Dosing: Pharmacy Service will continue to monitor and adjust dosing as required. TROUGH 15.6 AT 6.5 HRS. NO CHANGES, FOLLOW UP TROUGH IN 2 DAYS Follow-Up Labs: Trough Vancomycin Labs to be done on [date and time ordered]: 01/04 @ 1199
[2022-01-03 03:00] VITALS: PULSE 83
[2022-01-03 03:15] VITALS: BP 134/82; PULSE 87; RESP 18; TEMP 36.6; O2SAT 99
[2022-01-03] MEDS: Insulin Lispro 100 UNIT/ML INSULN.PEN SC ×3 (06:45→16:59)
[2022-01-03] MEDS: Acetaminophen 325 MG Tablet 650 MG PO ×2 (06:50→19:02)
[2022-01-03 06:59] VITALS: PULSE 77
[2022-01-03 07:05] LABS: Bedside Glucose 251 mg/dL (74-106)
--- NOTE | 2022-01-03 08:41 | CASEMGMT ---
Discharge Administrative Receptionist [facility] reached out. Patient has been accepted. Pre-cert is being started today. SIDRA Bishop notified. Plan: [facility], Waiting pre-cert. Mally Valente Discharge Administrative Receptionist
--- NOTE | 2022-01-03 09:35 | CASEMGMT ---
Patient was accepted at [facility]. SW met with patient letting him know this information. Patient was in agreement. Patient is concerned about his truck as it is parked in [facility] parking lot. Edna CROCKETT
[2022-01-03 09:51] VITALS: BP 140/77; PULSE 86; RESP 18; TEMP 36.4; O2SAT 99
[2022-01-03] MEDS: Insulin Glargine-YFGN 100 UNIT/ML Pen 15 UNIT SC (09:54)
[2022-01-03] MEDS: DULoxetine Hcl 30 MG Capsule PO (09:54)
[2022-01-03] MEDS: Glucerna Shake 120 ML LIQUID PO ×3 (09:54→16:59)
[2022-01-03] MEDS: Mupirocin Ointment 22gm Tube 1 APPLIC NASAL (09:55)
--- NOTE | 2022-01-03 11:16 | PCM.PN.HOSP ---
Documented by User: Sheron Burgos NP, INTRANET SPECIALIST-C 01/03/22 11:19 Subjective Subjective Patient seen and examined. Amendable to SNF, awaiting insurance approval. Afebrile. Objective Data Objective Data Vital Signs: Vital Signs Temp Pulse Resp BP Pulse Ox O2 Del Method O2 Flow Rate 97.6 F L 86 18 140/77 H 99 Room Air 6 01/03/22 09:51 01/03/22 09:51 01/03/22 09:51 01/03/22 09:51 01/03/22 09:51 01/03/22 09:51 12/30/21 20:21 Oxygen Flow Rate (L/min) [3] 6 Oxygen Delivery Method [3] Nasal Cannula Oxygen Delivery Method [2] Room Air Oxygen Delivery Method [1 ( Room Air Initial Baseline)] Oxygen Delivery Method Room Air Weight: 167 lb 12.348 oz Body Mass Index (BMI) 23.3 Intake & Output: Intake and Output for Last 24 Hours 01/01/22 01/02/22 01/03/22 23:59 23:59 23:59 Intake Total 2100 / 2100 1898.25 / 1898.25 275 / 275 Output Total 1800 / 2700 2725 / 2725 700 / 700 Balance 300 / -600 -826.75 / -826.75 -425 / -425 Medical Nutrition Assessment Dietitian: Malnutrition Criteria Met Start: 12/31/21 11:22 Freq: Status: Active Protocol: Document 12/31/21 11:22 (Rec: 12/31/21 11:22 [id number]) Nutrition Malnutrition Evidence of Malnutrition Exists Yes Malnutrition (moderate): Chronic Evidenced By Suboptimal Energy Intake ( Moderate),Weight Loss ( Moderate) Clinical Problem Chronic Disease or Condition Related Malnutrition Etiology chronic, moderate malnutrition related to inadequate energy intake d/t chewing/swallowing difficulty Signs/Symptoms as evidenced by unintentional wt loss of ~7% x 1-2 months; estimated PO intake meeting < 75% of estimated energy needs >3 months Status Active Problem Recommendation Dietitian Recommendations/Changes will adjust diet to CHO controlled and add 120mL glucerna 4x/day w/ medpass d/t malnutrition. Speech therapy consult. Lab / Micro Data Result Diagrams: 01/02/22 05:30 01/02/22 05:30 Labs: Laboratory Results - last 24 hr 09/12/22 11:31: POC Glucose 241 H 09/12/22 16:32: POC Glucose 237 H 01/02/22 21:43: POC Glucose 347 H 01/02/22 22:50: Vancomycin Trough 15.6 H 01/03/22 06:44: POC Glucose 251 H Micro: Microbiology 12/30/21 19:23 Blood Culture (Wb) - No Site/Description Given Blood Culture - Preliminary Gram positive luana 12/30/21 19:31 Blood Culture (Wb) - Left Forearm Blood Culture - Preliminary No growth in 48 hours. 12/30/21 20:47 Wound Abcess - Leg, Right Gram Stain - Final 12/30/21 20:47 Wound Abcess - Leg, Right Wound Culture - Final Meth. resistant Staph. aureus 12/30/21 20:47 Wound Abcess - Right Forearm Gram Stain - Final 12/30/21 20:47 Wound Abcess - Right Forearm Wound Culture - Final Meth. resistant Staph. aureus Physical Exam Const alert and oriented x3 Orientation / Consciousness: awake, oriented to person, oriented to place and oriented to time HEENT normocephalic and moist oral mucous membranes Eyes PERRL, EOMs intact bilaterally and conjunctivae normal Neck no lymphadenopathy Resp normal respiratory effort and clear to auscultation bilaterally Cardio regular rate, regular rhythm and no murmurs Peripheral Pulses: pulses 2+ throughout GI normal to inspection, nondistended, normoactive bowel sounds, non-tender and non-distended Extremity normal to inspection Skin no rashes or lesions noted Skin Narrative: Right upper extremity and right lower extremity abscess status post I&D.? Dressings intact. Lesions: no lesions Rashes: no rashes Trauma: no lacerations or abrasions Neuro CN's II-XII intact bilaterally, no focal motor deficits, no sensory deficits noted and deep tendon reflexes 2+ bilaterally Psych mental status grossly normal and affect normal Assessment & Plan Assessment/Plan (1) Abscess of forearm, right: PLAN: Plan 1.? Right upper extremity and right lower extremity cellulitis secondary to right forearm and right leg abscess status post I&D-sepsis ruled out. Abscess culture growing MRSA.? IV vancomycin.? Leukocytosis resolved.? Afebrile.?Plan to discharge on doxycycline to complete course.? Keep areas covered with clean dressing.? 2.? Type 2 diabetes mellitus-untreated secondary to being homeless.? Hemoglobin A1c 11.5%.? Patient does have Medicaid. Glargine 20 units daily.? Metformin XR 500 mg daily.? Januvia 25 mg daily.? 3.? Pseudohyponatremia-resolved. 4. Depression/anxiety/PTSD-on duloxetine.? Encouraged continued outpatient follow-up/counseling. 5. Homeless-complicates management.? Patient does have Medicaid and ed case manager. 6.? Moderate protein calorie malnutrition-secondary to inadequate oral intake.? Follow dietitian recommendation. This patient was seen by Sheron Burgos NP-C under the supervision of Dr. Nava. Discharge plan: SNF pending insurance approval Time spent examining patient, reviewing data and subsequent management of care: 14 minutes Documented by User: Dr. Stephanie Nava MD 01/03/22 15:08 Objective Data Lab / Micro Data Result Diagrams: 01/02/22 05:30 01/02/22 05:30 Assessment & Plan Assessment/Plan (1) Abscess of forearm, right: Charges/Coding Addendum Addendum: This patient was seen in conjunction with Sheron Burgos NP.? I have independently interviewed and examined the patient and reviewed pertinent historical, laboratory, and other data. I have reviewed her note and concur with her documentation Patient was seen and examined.? No new complaints. Awaiting discharge to long term facility Physical Exam: Gen: Comfortable, not pale, not jaundiced CVS:HS I +II, regular, no murmurs RESP: Diminished at lung bases GI: BS present and normal, soft, nontender, no palpable organs EXT:No edema, dressing over the right forearm and the right lower leg ASSESSMENT: 1.? Acute right upper extremity and lower extremity MRSA cellulitis/abscesses 2.? Type II DM, poorly treated 3.? Pseudohyponatremia 4.? Anxiety/depression/PTSD 5.? Severe protein calorie malnutrition 6.? Homelessness Plan: Continue IV vancomycin Increase Lantus to 15 units BID Continue with ISS with blood glucose checks Time spent coordinating all aspects of patient's care, discussing with nursin minutes Visit Charges Inpatient E&M: 50201 Subs Hosp L2
[2022-01-03 11:50] LABS: Bedside Glucose 361 mg/dL (74-106)
--- NOTE | 2022-01-03 13:42 | CASEMGMT ---
Patient's senior case manager, Magdalena asked if she could talk with SIDRA. SIDRA met with patient and his senior case manager. Introduced self to Magdalena. SIDRA let Magdalena know that patient was accepted at [facility] and we are just waiting on insurance to approve him. SW let her know it could be a day or two. SIDRA told Magdalena SW will let her know when SW does hear from insurance. Patient said SIDRA can communicate with Magdalena about his care. Plan: [facility] pending insurance approval. Edna Hernandez PORCELAIN MIXER KEIRA
[2022-01-03 14:27] VITALS: PULSE 88
--- NOTE | 2022-01-03 14:55 | CASEMGMT ---
Discharge Performance Makeup Artist [facility] has reached out. Pre-cert has been obtained. SIDRA Bishop notified. Plan: [facility], When medically ready. Mally Valente Discharge Performance Makeup Artist
--- NOTE | 2022-01-03 15:01 | PCM.TXEXTCAR ---
Diet Diet Order/Speech Therapy: 01/02/22 11:43 Diet: Carbohydrate Controlled Is pt able to select menu?: Yes Routine Orders/Code Status Enema Type: Fleetz Enema Frequency: Daily PRN Suppository Type: Dulcolax 10mg Suppository Frequency: Daily PRN Code Status: Full Code Wound(s) RIGHT LOWER LEG: Wound Type: Abscess Dressing Change: Adaptic RIGHT AXILLARY: Wound Type: Abscess Right forearm: Wound Type: Abscess Dressing Change: Adaptic left wrist: Wound Type: infiltrated IV site Suggestions for Active Care Change Position every (hours): 2 Times a day to sit in chair: 3 Therapies Physical Therapy: Eval and Treat Occupational Therapy: Eval and Treat Problem/Diagnosis (1) Abscess of forearm, right: Status: Acute Code(s): L02.413 - Cutaneous abscess of right upper limb Allergies/Procedures Done in Hospital Allergies amoxicillin Allergy (Verified 12/30/21 19:29) Anaphylaxis Penicillins [PCN] Allergy (Verified 12/30/21 19:29) Anaphylaxis aspirin [ASA] Adverse Reaction (Verified 12/30/21 19:29) Upset Stomach bee venom protein (honey bee) Adverse Reaction (Verified 12/30/21 19:29) Anaphylaxis ibuprofen Adverse Reaction (Verified 12/30/21 19:29) Upset Stomach oxycodone Adverse Reaction (Verified 12/30/21 19:29) Upset Stomach Procedures: None Type of Care/Length of Stay Estimated LOS: Convalescent Care Less Than 30 days Type of Care Needed: Skilled Rehab Potential: Good Prognosis: Good Additional Orders/Day of Discharge H&P will serve as current which was dated: 12/30/21 Day of Discharge: 01/03/22 Dietary and Speech Recommendations Dietitian Recommendations/Changes: will adjust diet to CHO controlled and add 120mL glucerna 4x/day w/ medpass d/t malnutrition. Speech therapy consult. Discharge Plan Admission Admit Date/Time: 12/30/21 20:46 Primary Reason for Your Visit: Cellulitis Attending Provider: Stephanie Nava Primary Care Provider: Care Physician,No Primary Consulting Providers: Hazel Rivera ; Man Tobar Instructions Additional Instructions / Restrictions: cleanse wounds to the right forearm and the right medial lower leg daily with soap and water. pat dry. place Adaptic and cover with dry dressings. wrap with zay. change daily and prn. Discharge Orders/Prescriptions Prescriptions: New metformin 500 mg tablet extended release 24 hr 500 mg PO DAILY Qty: 30 0RF doxycycline monohydrate 100 mg capsule 100 mg PO BID Qty: 16 0RF Januvia 25 mg tablet 25 mg PO DAILY Qty: 30 0RF insulin glargine-yfgn 100 unit/mL (3 mL) Insulin Pen 15 unit subcut BID Qty: 0 0RF Continued duloxetine 30 mg capsule,delayed release(DR/EC) 30 mg PO DAILY Other Ambulatory Orders: Glucometer (Routine) Timeframe: 1 Day Location: Determined by Patient Ordered By: Sheron Burgos NP Referrals / Follow Up: Jose David Ford MD [Med Staff - Courtesy Staff] - 01/05/22 2:15 pm ( [place]. appointment is with Suzanne Aldana N.P.) Care Physician,No Primary [Primary Care Provider] - In 1 Week Disposition Disposition (needs filled in before D/C Order can be placed): Home, Self Care
[2022-01-03] MEDS: 0.9% Saline Lock 10 ML Syringe IV (15:04)
--- NOTE | 2022-01-03 15:12 | DS.PCM_ITS ---
Documented by User: Sheron Burgos NP, SALES SERVICE COORDINATOR-C 01/03/22 15:16 Providers Date of Admission: 12/30/21 Date of Discharge: 01/03/22 Primary Care Physician: No Primary Care Phys Consultations 12/30/21 21:43 Consult: Onc/Wound/label folder Routine Comment: Reason For Visit: SEPSIS DUE TO CELLULITIS Diagnosis Discharge Diagnosis (1) Abscess of forearm, right: Status: Acute Code(s): L02.413 - Cutaneous abscess of right upper limb Medications at Discharge Home Medications duloxetine 30 mg capsule,delayed release 30 mg PO DAILY mental health 12/30/21 doxycycline monohydrate 100 mg capsule 100 mg PO BID #16 caps 01/02/22 metformin 500 mg tablet,extended release 24 hr 500 mg PO DAILY #30 tabs 01/02/22 sitagliptin 25 mg tablet (Januvia) 25 mg PO DAILY #30 tabs 01/02/22 insulin glargine-yfgn 100 unit/mL (3 mL) subcutaneous pen 15 unit (0.15 mL) subcut BID #0 mL 01/03/22 Hospital Course Operations None Procedures None Summary of Care Provided Hospital Course: Patient is a 56-year-old male admitted 12/30/2021 due to right arm and right leg abscess. 1.? Right upper extremity and right lower extremity cellulitis secondary to right forearm and right leg abscess status post I&D-Sepsis ruled out. Abscess culture growing MRSA.? IV vancomycin during admission.? Leukocytosis resolved.? Afebrile.? Discharged on doxycycline to complete course.? Keep areas covered with clean dressing.? Follow-up with PCP within 1 week. 2.? Type 2 diabetes mellitus-untreated secondary to being homeless.? Hemoglobin A1c 11.5%.? Patient does have Medicaid.? Discharged with glucometer and testing supplies.? Glargine 15 units BID.? Metformin XR 500 mg daily.? Januvia 25 mg daily.? Follow-up with endocrinology as scheduled 01/05/2022. Continue to titrate medication regimen. 3.? Pseudohyponatremia-resolved. 4. Depression/anxiety/PTSD-on duloxetine.? Encouraged continued outpatient follow-up/counseling. 5. Homeless-complicates management.? Patient does have Medicaid and correctional case records supervisor. 6.? Moderate protein calorie malnutrition-secondary to inadequate oral intake.? Follow dietitian recommendation. Physical Exam Const alert and oriented x3 HEENT normocephalic and moist oral mucous membranes Eyes PERRL, EOMs intact bilaterally and conjunctivae normal Neck no lymphadenopathy Resp normal respiratory effort and clear to auscultation bilaterally Cardio regular rate, regular rhythm and no murmurs Peripheral Pulses: pulses 2+ throughout GI normal to inspection, nondistended, normoactive bowel sounds, non-tender and non-distended Extremity normal to inspection Skin no rashes or lesions noted Skin Narrative: Right upper extremity and right lower extremity abscess status post I&D.? Dressings intact. Lesions: no lesions Rashes: no rashes Trauma: no lacerations or abrasions Neuro CN's II-XII intact bilaterally, no focal motor deficits, no sensory deficits noted and deep tendon reflexes 2+ bilaterally Psych mental status grossly normal and affect normal Patient seen and examined prior to discharge.? Physical assessment as noted above.? Patient is stable for discharge with follow up recommendations as noted above. This patient was seen by BEATRICE Faith under the supervision of Dr. Nava. Time spent examining patient, reviewing data and subsequent management of care: 24 minutes Medical Records Data Medical Nutrition Assessment Dietitian: Malnutrition Criteria Met Start: 12/31/21 11:22 Freq: Status: Active Protocol: Document 12/31/21 11:22 (Rec: 12/31/21 11:22 [id number]) Nutrition Malnutrition Evidence of Malnutrition Exists Yes Malnutrition (moderate): Chronic Evidenced By Suboptimal Energy Intake ( Moderate),Weight Loss ( Moderate) Clinical Problem Chronic Disease or Condition Related Malnutrition Etiology chronic, moderate malnutrition related to inadequate energy intake d/t chewing/swallowing difficulty Signs/Symptoms as evidenced by unintentional wt loss of ~7% x 1-2 months; estimated PO intake meeting < 75% of estimated energy needs >3 months Status Active Problem Recommendation Dietitian Recommendations/Changes will adjust diet to CHO controlled and add 120mL glucerna 4x/day w/ medpass d/t malnutrition. Speech therapy consult. Weight / BMI Weight Weight: 167 lb 12.348 oz Body Mass Index (BMI) 23.3 ABG / Lab / Microbiology Data Result Diagrams: 01/02/22 05:30 01/02/22 05:30 Laboratory: Laboratory Results - last 24 hr 01/02/22 16:32: POC Glucose 237 H 01/02/22 21:43: POC Glucose 347 H 01/02/22 22:50: Vancomycin Trough 15.6 H 01/03/22 06:44: POC Glucose 251 H 01/03/22 11:28: POC Glucose 361 H Microbiology: Microbiology 12/30/21 19:23 Blood Culture (Wb) - No Site/Description Given Blood Culture - Preliminary Gram positive luana 12/30/21 19:31 Blood Culture (Wb) - Left Forearm Blood Culture - Preliminary No growth in 48 hours. 12/30/21 20:47 Wound Abcess - Leg, Right Gram Stain - Final 12/30/21 20:47 Wound Abcess - Leg, Right Wound Culture - Final Meth. resistant Staph. aureus 12/30/21 20:47 Wound Abcess - Right Forearm Gram Stain - Final 12/30/21 20:47 Wound Abcess - Right Forearm Wound Culture - Final Meth. resistant Staph. aureus D/C Instructions Discharge Diet: Carb Control Diet Call your doctor if your incision/area has: Continuous Slow Oozing, Increased Redness and Foul Smelling Discharge Call your doctor if you observe: Fever of 101 or Higher Meaningful Use Info Meaningful Use Diagnoses (Choose all that apply): None applicable Discharge Plan Admission Admit Date/Time: 12/30/21 20:46 Primary Reason for Your Visit: Cellulitis Attending Provider: Stephanie Nava Primary Care Provider: Care Physician,Janice Primary Consulting Providers: Hazel Rivera ; Man Tobar Instructions Additional Instructions / Restrictions: cleanse wounds to the right forearm and the right medial lower leg daily with soap and water. pat dry. place Adaptic and cover with dry dressings. wrap with zay. change daily and prn. Discharge Orders/Prescriptions Prescriptions: New metformin 500 mg tablet extended release 24 hr 500 mg PO DAILY Qty: 30 0RF doxycycline monohydrate 100 mg capsule 100 mg PO BID Qty: 16 0RF Januvia 25 mg tablet 25 mg PO DAILY Qty: 30 0RF insulin glargine-yfgn 100 unit/mL (3 mL) Insulin Pen 15 unit subcut BID Qty: 0 0RF Continued duloxetine 30 mg capsule,delayed release(DR/EC) 30 mg PO DAILY Other Ambulatory Orders: Glucometer (Routine) Timeframe: 1 Day Location: Determined by Patient Ordered By: Sheron Burgos NP Referrals / Follow Up: Jose David Ford MD [Med Staff - Courtesy Staff] - 01/05/22 2:15 pm ( out of [place] until [place]10. appointment is with Suzanne Aldana N.P.) Care Physician,No Primary [Primary Care Provider] - In 1 Week Disposition Disposition (needs filled in before D/C Order can be placed): Home, Self Care Documented by User: Dr. Stephanie Nava MD 01/03/22 15:21 Providers Date of Admission: 12/30/21 Reason For Visit: SEPSIS DUE TO CELLULITIS Diagnosis Discharge Diagnosis (1) Abscess of forearm, right: Status: Acute Code(s): L02.413 - Cutaneous abscess of right upper limb Medications at Discharge Home Medications duloxetine 30 mg capsule,delayed release 30 mg PO DAILY mental health 12/30/21 doxycycline monohydrate 100 mg capsule 100 mg PO BID #16 caps 01/02/22 metformin 500 mg tablet,extended release 24 hr 500 mg PO DAILY #30 tabs 01/02/22 sitagliptin 25 mg tablet (Januvia) 25 mg PO DAILY #30 tabs 01/02/22 insulin glargine-yfgn 100 unit/mL (3 mL) subcutaneous pen 15 unit (0.15 mL) subcut BID #0 mL 01/03/22 ABG / Lab / Microbiology Data Result Diagrams: 01/02/22 05:30 01/02/22 05:30 Discharge Plan Admission Admit Date/Time: 12/30/21 20:46 Primary Reason for Your Visit: Cellulitis Attending Provider: Stephanie Nava Primary Care Provider: Care Physician,No Primary Consulting Providers: Hazel Rivera ; Man Tobar Instructions Additional Instructions / Restrictions: cleanse wounds to the right forearm and the right medial lower leg daily with soap and water. pat dry. place Adaptic and cover with dry dressings. wrap with zay. change daily and prn. Discharge Orders/Prescriptions Prescriptions: New metformin 500 mg tablet extended release 24 hr 500 mg PO DAILY Qty: 30 0RF doxycycline monohydrate 100 mg capsule 100 mg PO BID Qty: 16 0RF Januvia 25 mg tablet 25 mg PO DAILY Qty: 30 0RF insulin glargine-yfgn 100 unit/mL (3 mL) Insulin Pen 15 unit subcut BID Qty: 0 0RF Continued duloxetine 30 mg capsule,delayed release(DR/EC) 30 mg PO DAILY Other Ambulatory Orders: Glucometer (Routine) Timeframe: 1 Day Location: Determined by Patient Ordered By: Sheron Burgos NP Referrals / Follow Up: Jose David Ford MD [Med Staff - Courtesy Staff] - 01/05/22 2:15 pm ( out of country until 01/10. appointment is with Suzanne Aldana N.P. Care Physician,No Primary [Primary Care Provider] - In 1 Week Disposition Disposition (needs filled in before D/C Order can be placed): Home, Self Care Charges/Coding Addendum Addendum: This patient was seen in conjunction with Sheron Burgos NP.? I have independently interviewed and examined the patient and reviewed pertinent historical, laboratory, and other data. I have reviewed her note and concur with her documentation 56-year-old male with past medical history of type II DM, anxiety/depression who presented with right arm and leg abscesses.? Patient is homeless and has been having recurrent abscesses all over his body especially in the neck and right axilla and torso.? He stated that his living conditions are not that great.? He has lanced some of the abscesses to drain.? He was admitted as sepsis secondary to cellulitis and abscess to the right forearm and the right lower leg. His wound cultures were positive for MRSA.? He was started on vancomycin.? His HgbA1c was 11.5%? He was started on Lantus, metformin and Januvia.? He was also referred to endocrinology.? He was discharged on doxycycline to complete a 10- day course. Patient was to be discharged home the previous day. He expressed reluctance and being started on insulin and is homeless situation with his wound. Social work was consulted and patient was discharged [facility]. On the day of discharge, patient was seen and examined.? Denied any new complaint. Physical Exam: Gen: Comfortable, not pale, not jaundiced CVS:HS I +II, regular, no murmurs RESP: Diminished at lung bases GI: BS present and normal, soft, nontender, no palpable organs EXT:No edema, dressing over the right forearm and right mid leg Time spent coordinating all aspects of patient's care, discussing with subspecialty and nursin minutes Visit Charges Inpatient E&M: 40359 Disch Hosp
--- NOTE | 2022-01-03 15:48 | CASEMGMT ---
Patient was approved to go to [facility]. SIDRA notified Physician and Nurse Practitioner. SIDRA sent orders and COVID test to [facility] via [facility]. SIDRA notified patient and RN. SIDRA called [facility] and requested wheelchair transport by [facility]. The reference number is [id number]. The phone number for [facility] is . SIDRA is leaving for the day so SIDRA will give the [facility] information to secretary to board of commissioners. SIDRA called patient's medical case worker (with patient's permission) and let her know patient will be leaving the hospital and going to [facility] today. SIDRA completed a 7000 in [place]. Patient has his truck parked at [facility]. SIDRA spoke with hot metal charger Fallon and she spoke with security. Patient's truck is a [employer] that is black and blue and has a winch on the front. The truck is parked in [address] at [facility] by where security ngo. Patient will get the truck when he is discharged from the assisted. Plan: d/c to [facility] under skilled level of care on a 7000. Edna CROCKETT
[2022-01-03 15:51] VITALS: BP 133/77; PULSE 92; RESP 18; TEMP 36.6; O2SAT 97
[2022-01-03 17:25] LABS: Bedside Glucose 228 mg/dL (74-106)
== END 2022-01-03 19:12 | disposition skilled nursing facility (03) | DRG 364 ==
LOC: ED 20:42 → PCU 20:53
PROVIDERS: Internal Medicine; Admitting Provider Student in an Organized Health Care Education/Training Program; Emergency Provider Emergency Medicine; Visit Provider Internal Medicine
DX: L03.115 Cellulitis of right lower limb (principal); E11.65 Type 2 diabetes mellitus with hyperglycemia; B95.62 Methicillin resistant Staphylococcus aureus infection as the cause of diseases classified elsewhere; L02.413 Cutaneous abscess of right upper limb; L02.415 Cutaneous abscess of right lower limb; L03.113 Cellulitis of right upper limb; F43.10 Post-traumatic stress disorder, unspecified; F32.A Depression, unspecified; F41.9 Anxiety disorder, unspecified; Z59.00 Homelessness unspecified; Z79.899 Other long term (current) drug therapy; F17.200 Nicotine dependence, unspecified, uncomplicated; Z68.23 Body mass index [BMI] 23.0-23.9, adult; R26.2 Difficulty in walking, not elsewhere classified; R25.2 Cramp and spasm; E44.1 Mild protein-calorie malnutrition
CPT/HCPCS: 10060; 36415; 80048; 80053; 80202; 82962; 83036; 83605; 85025; 85610; 87040; 87070; 87077; 87186; 87205; 87640; 87641; 87811; 92526; 92610; 97110; 97162; 97166; 97530; 97535; 97802; 99285; J7030; J7040; J7050; A4216

== ENCOUNTER → 2022-02-23 | Outpatient (CLI) | payer MEDICAID, SELFPAY ==
--- NOTE | 2022-02-23 08:22 | CT_ITS ---
STUDY: CT CERVICAL SPINE WITHOUT CONTRAST REASON FOR EXAM: Male, 56 years old. SPINAL STENOSIS. Bilateral shoulder pain and numbness to the hands. History of prior cervical fusion. RADIATION DOSAGE (If Supplied By Facility): CTDIvol = ( 24.04 ) mGy, DLP = ( 520.71 ) mGycm TECHNIQUE: High resolution transaxial imaging was performed without contrast material. Sagittal and coronal images were reconstructed. Individualized dose optimization techniques were used for this CT. COMPARISON: None FINDINGS: Normal craniovertebral junction. Normal anterior atlantoaxial articulation. Normal odontoid process. There is straightening of the normal cervical lordosis. The patient is status post anterior fusion with screw and plate fixation device as well as prosthetic disks at the C5-C6, C6-C7 and C7 -T1 level. C2-3: Facet joint osteoarthritis on the left side with hypertrophy. No significant stenosis seen. C3-4: Facet joint osteoarthritis and hypertrophy of the left facet joint. No significant stenosis seen. C4-5: Normal endplates. Normal disc height and morphology. Normal central canal and intervertebral neuroforamina. C5-6: Patient is status post anterior fusion with prosthetic disc placement. Mild degree of facet joint osteoarthritis. No significant stenosis seen. C6-7: The patient is status post anterior fusion with disc prosthesis. Uncovertebral arthrosis. Mild bilateral neural foraminal stenosis slightly worse on the right side. C7-T1: There is evidence of prior fusion with displacement. No significant abnormality is seen. Normal visualized soft tissue structures. CT/Spine Cervical without Contras IMPRESSION: Multilevel degenerative changes, as described above. Electronically Signed: Jose Cruz Mcleod MD at 11:03 EDT ,
== END | disposition home or self-care (01) ==
LOC: CT 08:21
PROVIDERS: Referring Provider Orthopaedic Surgery; Visit Provider Orthopaedic Surgery
DX: M48.02 Spinal stenosis, cervical region (principal); M47.22 Other spondylosis with radiculopathy, cervical region; M43.22 Fusion of spine, cervical region
CPT/HCPCS: 72125

== ENCOUNTER → 2022-04-04 | Outpatient (CLI) | payer MEDICAID, SELFPAY ==
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
== END | disposition home or self-care (01) ==
PROVIDERS: Referring Provider Student in an Organized Health Care Education/Training Program; Visit Provider Student in an Organized Health Care Education/Training Program
DX: M25.511 Pain in right shoulder (principal)
CPT/HCPCS: 73221

== ENCOUNTER 2022-04-25 13:43 | Outpatient (RCR) | payer MEDICAID, SELFPAY | END 2022-05-23 23:59 | LOC: DC 13:43 | PROVIDERS: Visit Provider Internal Medicine | DX: E11.65 Type 2 diabetes mellitus with hyperglycemia (principal) | CPT/HCPCS: 97802 ==

== ENCOUNTER → 2022-05-10 | Outpatient (CLI) | payer MEDICAID, SELFPAY ==
--- NOTE | 2022-05-10 17:24 | MRI_ITS ---
INDICATION: renal mass on CT 2019 EXAMINATION: MRI - MR Abdomen WO/W Contrast TECHNIQUE: Multiplanar and multisequence MR images of the abdomen were obtained. Three-dimensional post-processing reconstructions were performed. IV Contrast Dosage and Agent: Yes YES IV Yes YES COMPARISON: 6 FINDINGS: Left kidney contains an upper pole anterior cortex partially exophytic 2.3 cm enhancing lesion. There is a lower pole exophytic 3.5 cm cyst. Right kidney is normal with simple cyst. There is no hydronephrosis. Perinephric spaces clear. There is no retroperitoneal lymphadenopathy. Adrenals are normal. Visualized portions of the liver, pancreas and spleen are intact. There is no upper abdominal inflammation or free fluid. MRI/MRI Abd WITH and W/O Contrast IMPRESSION: 1. 2.3 cm left renal cell carcinoma. Electronically Signed: Kassandra Hill MD at 8:35 EST ,
[2022-05-10 17:55] LABS: CREATININE FINGERSTICK < 0.9 mg/dL (0.70-1.30); EGFR FINGERSTICK > 60.0000 mL/min (>60)
== END | disposition home or self-care (01) ==
LOC: MRI 17:24
PROVIDERS: Visit Provider Internal Medicine
DX: N28.89 Other specified disorders of kidney and ureter (principal); E11.9 Type 2 diabetes mellitus without complications; I10 Essential (primary) hypertension
CPT/HCPCS: 74183; A9575

== ENCOUNTER 2022-06-01 14:30 | Outpatient (RCR) | payer MEDICAID, SELFPAY | END 2022-06-20 23:59 | LOC: DC 14:30 | PROVIDERS: Referring Provider Internal Medicine; Visit Provider Internal Medicine | DX: E11.65 Type 2 diabetes mellitus with hyperglycemia (principal) | CPT/HCPCS: 97803 ==

== ENCOUNTER → 2022-06-14 | Outpatient (CLI) | payer MEDICAID, SELFPAY ==
--- NOTE | 2022-06-14 09:15 | MRI_ITS ---
STUDY: MRI LUMBAR SPINE WITHOUT CONTRAST REASON FOR EXAM: Male, 57 years old. LUMBAR RADICULOPATHY TECHNIQUE: Standardized fat and water weighted pulse sequences were obtained in the sagittal and axial planes. COMPARISON: None FINDINGS: T11-T12 and T12-L1: (Sagittal only). Normal endplates. Normal disc height, hydration and morphology. No ventral extradural defect. Normal central canal and bilateral intervertebral neural foramina. Normal lumbar lordosis. There is no substantial scoliosis. Normal conus medullaris that terminates at the T12-L1 disc space level. L1-2: Normal endplates. Mild disc space height narrowing. Prominent right posterior paramedian and cephalad disc extrusion. Normal facet joints. Normal central canal and bilateral lateral recesses. Suspicious small sequestered disc fragment in the left intervertebral neural foramen (series 5 and 6, image 6; series 8, image 23). Normal right intervertebral neural foramen. L2-3: Normal endplates. Mild disc space height narrowing. Prominent left posterior paramedian and cephalad disc extrusion causing left lateral recess stenosis. Normal right lateral recess. Mild degenerative retrolisthesis of L2 on L3. Prominent dorsal epidural lipomatosis. Small right posterior caudal disc extrusion. Mild stenosis of right intervertebral neural foramen. Normal left intervertebral neural foramen. L3-4: Normal endplates. Normal disc height. Minimal ventral extradural defect due to small posterior bulging annulus. Mild bilateral degenerative facet arthropathy. Posterior ligamenta flava hypertrophy. Mild dorsal epidural lipomatosis. Moderate central canal stenosis with an AP canal diameter 7.3 mm. Normal bilateral lateral recesses. Mild stenosis of the left intervertebral neural foramen. Normal right intervertebral neural foramen. L4-5: Minimal Modic type II degenerative vertebral marrow fat infiltration underneath the vertebral endplates. Pronounced disc space height narrowing. Mild degenerative retrolisthesis of L4 on L5 with prominent posterior bulging annulus. Postsurgical absence of the spinous processes and lamina. Capacious central canal and bilateral lateral recesses. Moderate stenosis of the left intervertebral neural foramen with suspicious osteophytic encroachment on the left L4 nerve. Mild to moderate stenosis of the right intervertebral neural foramen. L5-S1: Normal endplates. Moderate disc space height narrowing. Grade 1 degenerative retrolisthesis of L5 on S1. Moderate right degenerative facet arthropathy. Mild left degenerative facet arthropathy. Capacious central canal and bilateral lateral recesses. Moderate stenosis of the bilateral intervertebral neural foramina. Normal visualized sacral ala. Normal visualized paraspinous soft tissue structures. MRI/Spine Lumbar (Routine) IMPRESSION: 1. Suspicious small sequestered disc fragment in the left L1-L2 intervertebral neural foramen (series 5 and 6, image 6; series 8, image 23) and a prominent right L1-L2 posterior paramedian cephalad disc extrusion without obvious spinal stenosis or nerve root displacement. 2. Prominent left L2-L3 posterior paramedian and cephalad disc extrusion causing left lateral recess stenosis and small right posterior caudal disc extrusion. 3. Mild degenerative retrolisthesis of L4 on L5, pronounced L4-L5 disc space height narrowing, prominent posterior bulging annulus, moderate stenosis of the left L4-L5 intervertebral neural foramen with suspicious osteophytic encroachment on the left L4 nerve and mild to moderate stenosis of the right L4-5 intervertebral neural foramen. 4. Grade 1 degenerative retrolisthesis of L5 on S1, moderate right degenerative facet arthropathy and moderate stenosis of the bilateral intervertebral neural foramina. Electronically Signed: Jeffy Hernandez MD at 15:20 EST ,
== END | disposition home or self-care (01) ==
LOC: MRI 08:57
PROVIDERS: Referring Provider Anesthesiology Pain Medicine; Visit Provider Anesthesiology Pain Medicine
DX: M54.16 Radiculopathy, lumbar region (principal); M96.1 Postlaminectomy syndrome, not elsewhere classified
CPT/HCPCS: 72148

== ENCOUNTER 2023-01-11 10:30 | Emergency (ER) | payer MEDICAID, SELFPAY ==
[2023-01-11] VITALS (29 sets, daily range): BP systolic 108–175; BP diastolic 56–112; PULSE 108–135; RESP 14–35; TEMP 35.9–36.7; O2SAT 89–98; BMI 31.8
--- NOTE | 2023-01-11 10:54 | EKG12_ITS ---
Test Reason : GENERAL Blood Pressure : / mmHG Vent. Rate : 110 BPM Atrial Rate : 110 BPM P-R Int : 158 ms QRS Dur : 110 ms QT Int : 342 ms P-R-T Axes : 062 -56 076 degrees QTc Int : 462 ms Sinus tachycardia Left anterior fascicular block Minimal voltage criteria for LVH, may be normal variant ( Hunter product ) Septal infarct , age undetermined Possible Lateral infarct , age undetermined Abnormal ECG Confirmed by BATSHEVA VALLE, MICKEY ([id number]), order editor DORY MOSS ([id number]) on 01/16/2023 11:23:38 AM Referred By: Confirmed By:NATALI HERMAN MD
--- NOTE | 2023-01-11 10:57 | ED.RN ---
PLASTIC BAG TAPED TO HAND, BAG REMOVED, HAND WRAPPED IN GAUGE BANDAGE WHICH WAS REMOVED AND UNDER THAT DRESSING IS A PLASTIC BAG WHICH ADHERED TO THE WOUND, WAITING ORDERS FOR PAIN MEDS BEFORE REMOVING PLASTIC BAG.. THE FINGERS APPEAR BLUE AND SWOLLEN. DRAINAGE NOTED GOING DOWN ARM AND ON VISIBLE PORTIONS OF HAND AND FINGERS.
--- NOTE | 2023-01-11 10:58 | EDS_ITS ---
HPI History of Present Illness Chief Complaint: Upper Extremity Injury Detail of Chief Complaint: Left hand due to fall 1 week ago Informant: patient Occured/Mechanism Mechanism/Context: Yes blunt trauma Comment: Patient wrapped plastic followed by gauze and plastic again of the drainage. 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 He did not seek medical attention at that time because he fears coming to the hospital. He reports anaphylactic reaction to amoxicillin, penicillin. Patient does report chills. He denies fever. He states he is not able to use his left hand well. He is right-hand dominant. He does not recall the last time he changed his dressing. He wrapped his hand in plastic followed by gauze and a bag of plastic because of the amount of drainage. Patient's tetanus is unknown. Patient has no other complaints. Tetanus Immunization: Unknown Prior similar symptoms: No Recent Illness/Hospitalization: No [facility] Medical History Anxiety Depression Diabetes Hernia PTSD (post-traumatic stress disorder) Home Medications blood-glucose meter (OneTouch Verio Flex Meter) #1 ea 02/16/22 [Rx Last Taken Unknown] pen needle,diabetic dual safty 30 gauge x 3/16 (BD AutoShield Duo Pen Needle) #100 ea 02/16/22 [Rx Last Taken Unknown] BD AutoShield Duo Pen Needle 30 gauge x 3/16 (pen needle,diabetic dual safty) #100 ea 03/30/22 [Rx Last Taken Unknown] blood sugar diagnostic (OneTouch Verio test strips) #100 ea 03/30/22 [Rx Last Taken Unknown] insulin aspart U-100 100 unit/mL (3 mL) subcutaneous pen (Novolog FlexPen U-100 Insulin aspart) 15 unit (0.15 mL) subcut TID #40.5 mL 03/30/22 [Rx Last Taken Unknown] lancets 26 gauge (Easy Touch Safety Lancets) #200 ea 03/30/22 [Rx Last Taken Unknown] duloxetine 60 mg capsule,delayed release 60 mg PO DAILY 01/11/23 [History Last Taken Unknown] Allergy/AdvReac Type Severity Reaction Status Date / Time amoxicillin Allergy Anaphylaxis Verified 01/11/23 10:31 Penicillins [PCN] Allergy Anaphylaxis Verified 01/11/23 10:31 aspirin [ASA] AdvReac Upset Verified 01/11/23 10:31 Stomach bee venom protein (honey bee) AdvReac Anaphylaxis Verified 01/11/23 10:31 ibuprofen AdvReac Upset Verified 01/11/23 10:31 Stomach oxycodone AdvReac Upset Verified 01/11/23 10:31 Stomach Family History Mother Diabetes Father Diabetes Cancer kidney Kidney disease Surgical History History of back surgery Hx of neck surgery Social History household members: none current occupational status: disabled 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 Smoking Status: Former smoker quit date: 04/23/94 pack-years: 60 Electronic Cigarette Use: not used alcohol intake: former year quit: 2007 substance use type: other details: reports unintentional use of methamphetamine in the past what type of physical activity do you participate in: none do you feel safe at home: Yes ROS ROS ED Constitutional Constitutional ED: Reports chills; Denies sweats Eyes Eyes: Reports blurry vision bilateral; Denies change in vision or diplopia ENT ENT ED: Denies ear pain, rhinorrhea or sore throat Cardiovascular Cardiovascular: Reports racing heartbeat; Denies chest pain, orthopnea or paroxysmal nocturnal dyspnea Respiratory/Chest Respiratory/Chest: Denies cough, dyspnea, dyspnea on exertion, orthopnea or paroxysmal nocturnal dyspnea Gastrointestinal Gastrointestinal: Denies abdominal pain, nausea or vomiting Genitourinary Genitourinary ED: Denies dysuria, hematuria or urinary frequency Musculoskeletal Musculoskeletal: Denies back pain or neck pain Integumentary Reports rash Psychiatric Psychiatric: Reports anxiety Endocrine Endocrinology: Reports polydipsia and polyuria; Denies cold intolerance or heat intolerance Hematologic/Lymphatic Hematologic/Lymphatic: Denies easy bleeding or easy bruising EXAM Physical Exam Narrative Exam Narrative: Plans are noted for tachycardia and tachypnea. He is not febrile. His temperature is lower than normal. Const Vital Signs: 01/11/23 10:32 01/11/23 10:36 Temperature 96.6 F L 96.6 F L Temperature Source Temporal Temporal Pulse Rate 126 H 111 H Respiratory Rate 22 H 20 H Blood Pressure 142/112 H 142/112 H Blood Pressure Mean 122 122 Pulse Ox 89 97 Oxygen Delivery Method Room Air Room Air Positive well nourished, well developed and obese Constitutional Narrative: Patient appears ill. He does not appear toxic. Patient is reluctant to move his left upper extremity. General Appearance ED: well developed; Negative for cyanotic, diaphoretic or NAD Nutritional Appearance: obese HEENT normocephalic and atraumatic Eyes PERRL and EOMs intact bilaterally Eyes Narrative: Conjunctive is pink. There is no scleral icterus. Neck full ROM and supple Neck Narrative: Is midline. There is no in-store extra stridor. There is no cervical lymphadenopathy. Chest Wall inspection of chest normal and palpation of chest normal Resp normal respiratory effort and clear to auscultation bilaterally Cardio regular rhythm, S1 normal heart sound, S2 normal heart sound and no murmurs Rate: tachycardic GI non-tender, non-distended and no masses Auscultation: hypoactive bowel sounds Palpation: soft Back/Spine no CVA tenderness Extremity Negative for normal to inspection Extremity Narrative: Unable to remove the plastic from his head because it is adherent to his hand. There is evidence of cellulitis with a odiferous drainage noted. Patient has shotty left axillary lymphadenopathy. There is no lymphangitis. Patient is reluctant to move his fingers. Neuro oriented x3, CN's II-XII intact bilaterally and moves all extremities Psych Mood & Affect: anxious Skin Skin Narrative: Described under the extremity portion of the medical record Sepsis Attestation Sepsis Alert: Yes Sepsis Attestation: Agree w/Sepsis Date exam was performed: 01/11/23 Time exam was performed: 10:40 Possible Source of Sepsis: Skin/soft tissue Sepsis Organ Dysfunction Criteria Present: Lactic Acid > 2 mmol/L MDM MDM MDM Narrative Medical decision making narrative: As an obvious infected left hand wound. Since patient is tachycardic tachypneic sepsis work-up was initiated. X-ray of the hand was obtained to evaluate for fracture as well as subcutaneous air and if there is any evidence for osteomyelitis. Because of an anaphylactic reaction to penicillin he was treated with levofloxacin and vancomycin. Patient was medicated with morphine to allow the nurse to pull off the plastic which is adherent to his skin. Lab Data Attestation: I reviewed the patient's lab results. Lab results narrative: Count is elevated. Lactate is elevated at 2.9. PTT is elevated with a normal INR. PTT is normal. Blood sugar 722 with a normal CO2 anion gap potassium is elevated at 6.4. Patient received 6 unit bolus of insulin and placed on insulin drip to treat his hyperosmolar nonketotic hyperglycemia. He has doubled indicating acute kidney injury. Also has hypoalbuminemia. Radiography Chest X-Ray - ED: Read by ED Physician (X-ray of the left hand reveals significant soft tissue swelling. There is no subcutaneous air. There is no periosteal elevation or evidence of lytic lesions consistent with osteomyelitis) EKG Initial EKG: Attestation: I personally reviewed and interpreted this EKG as follows: Interpretation: Sinus Tachycardia (It is 110. NE interval is 180 ms. Cures duration is 110 ms. QT duration 342 ms. [place] is to the left. There is evidence of a left anterior fascicular block. There are no peaked T waves noted to necessitate emergent treatment for hyperkalemia. There is artifact noted. Patient does have decreas) Management Discussion w/another healthcare provider: Hospitalist and Hydraulic Press Tender (Dr. Mcbride. He was made aware of patient's history, physical findings and laboratory and imaging results. He will follow in consultation. He would like patient admitted to the hospitalist.) Critical Care Time Critical Care Time: Yes Critical care time (excluding procedures): 30-74 minutes (37), Including time spent: (History, physical, documentation, independent review interpretation laboratory results, bedside care to remove his dressing and initiation of treatment for sepsis), Discussing w/Patient &/or Family/Technical Translator, Discussing w/Consultants (Dr. Mcbride on-call for orthopedics.), Arranging Admission or Transfer and Performing Direct Patient Care at Bedside Discharge Plan Dx/Rx/DC Orders Clinical Impression: Hyperosmolar hyperglycemic state (HHS), Pseudohyponatremia, Severe sepsis with acute organ dysfunction, Cellulitis of multiple sites of left hand and fingers, Acute hyperkalemia, Acute kidney injury Disposition Disposition: Acute Care Hospital [facility]
[2023-01-11 11:07] LABS: Absolute Lymphocyte Count 1.27 X10^3/uL (0.83-4.51); Absolute Neutrophil Count 14.2 X10^3/uL (2.0-7.7); Basophil# 0.01 X10^3/uL; Basophil% 0.1 % (0-1); Eosinophil# 0.03 X10^3/uL; Eosinophils% 0.2 % (0-5); Lymphocyte # 1.27 X10^3/ul (0.83-4.51); Lymphocyte % 7.5 % (19-41); Mean Corp Hgb Conc 32.7 g/dL (32-36); Mean Corpuscular Hgb 30.1 pg (27.0-32.0); Mean Corpuscular Volume 92.3 fL (80-94); Monocyte# 1.17 X10^3/uL; Monocyte% 6.9 % (0-10); NRBC Flagged by Analyzer 0 % (0-5); Neutrophil % 83.3 % (47-70); POSITIVE MORPHOLOGY YES; Platelet Count 372 K/mm3 (150-450); RBC Distribution Width CV 12.4 % (11.6-14.6); RBC Distribution Width SD 42.3 fl (35.1-43.9); Red Blood Count 5.31 M/mm3 (4.6-6.2)
[2023-01-11 11:10] LABS: Differential Indicated SCAN CRITERIA MET
[2023-01-11] MEDS: Morphine 4 MG/ML Syringe IV ×2 (11:13→16:26)
[2023-01-11 11:21] LABS: Lactic Acid 2.9 mmol/L (0.4-1.9)
[2023-01-11 11:26] LABS: International Normalized Ratio 1.4; Partial Thromboplast Time 26.8 Seconds (24.1-36.2); Prothrombin Time (Protime)PT. 17.1 SECONDS (11.7-14.9)
[2023-01-11 11:36] LABS: ALB/GLOB Ratio 0.4 RATIO (0.9-2.4); AST(SGOT) 28 U/L (15-37); Alanine Aminotransfer ALT/SGPT 49 U/L (16-61); Albumin, Serum 2.3 g/dL (3.2-5.0); Alkaline Phosphatase 191 U/L (45-117); Anion Gap 8 (5-15); BUN 63 mg/dL (7-18); CPK Total, Creatine Kinase 101 U/L (39-308); Chloride 93 mmol/L (98-107); Creatinine, Serum 1.37 mg/dL (0.70-1.30); EST Glomerular Filtration Rate 57 mL/min (>60); Est Glom Filt Rate - Afr Amer 69 mL/min (>60); Estimated Creatinine Clearance 66.08 ml/min; Glucose 722 mg/dL (74-106); Potassium 6.4 mmol/L (3.5-5.1); Protein, Total 8.3 g/dL (6.4-8.2); Sodium Level 127 mmol/L (136-145)
[2023-01-11] MEDS: levoFLOXacin IV 750 MG/150 ML BAG 100 MG IV (11:57)
[2023-01-11] MEDS: Insulin Lispro 100 UNIT in 0.9% Normal Saline (100mL Bag) 99 ML 10.7 UNIT CONT INF (12:35)
[2023-01-11 12:56] LABS: Bedside Glucose > 500 mg/dL (74-106)
--- NOTE | 2023-01-11 13:05 | RAD_ITS ---
STUDY: X-RAY - LEFT HAND REASON FOR EXAM: Male, 57 years old. Injury/Pain TECHNIQUE: 3 view(s) of the hand. COMPARISON: None. FINDINGS: Normal radiocarpal articulation. Normal distal radioulnar joint. Normal visualized carpal bones. Normal carpal articulations Normal carpometacarpal articulation of the thumb. Normal second through fifth carpometacarpal joints. Normal metacarpi. Normal metacarpophalangeal joint of the thumb. Normal interphalangeal joint of the thumb. Normal proximal and distal phalanges of the thumb. Normal metacarpophalangeal joints of the second through fifth fingers. Normal proximal and distal interphalangeal joints of the second through fifth fingers. Normal phalanges of the second through fifth fingers. Diffuse soft tissue swelling. RAD/Hand Min 3 Views IMPRESSION: Diffuse soft tissue swelling. Electronically Signed: Jose Cruz Mcleod MD at 13:30 EDT ,
[2023-01-11 13:11] LABS: Erythrocyte Sedimentation Rate 16 mm/hr (0-20)
--- NOTE | 2023-01-11 13:43 | ED.RN ---
THIS RN CHECKED PT BLOOD GLUCOSE. GLUCOMETER READING HIGH. DR. POST AWARE.
--- NOTE | 2023-01-11 13:49 | PCM.HP.STD ---
HPI - General General Date of Admission: 01/11/23 Date of Service: 01/11/23 Chief Complaint: L hand trauma, worsening appearance. HPI Narrative The patient is a 57 y/o M w/ PMHx: Anxiety and Depression/PTSD, IDDM, Former tobacco use, Obesity who presents to the [facility] ED on 01/11/23 with history of blunt trauma with fall 1 week prior unfortunately not seeking any medical attention that time secondary to fears of hospital evaluation with significant allergic reactions reportedly to amoxicillin and penicillin with onset of chills but no fevers and inability to use his left hand noted to be ydeor-zpew-jwokewom with inability to recall the last time even changed his dressing presenting with the hand itself and plastic secondary to the significant drainage but eventually prompted ED evaluation secondary to worsening symptoms. He reports the pain in the hand is a dull aching throb and worse with any movement. Work-up in the ED included T96.6, heart rate initially 126 with most recent repeat 111, BP 142/112, respiratory rate 22, 89% on room air although eventually improving to 97% on room air, CBC with WBC 17, hemoglobin 16, platelet 372 with left shift, coags with PT 17.1 otherwise not marked appearing, CMP with sodium 127, potassium 6.4 not noted to be hemolyzed, chloride 93, BUN/creatinine 63/1.37, glucose 722 although anion gap 8, lactic acid 2.9, hepatic profile with alk phos 191 otherwise not severe appearing, total creatinine kinase 101, POC glucose greater than 500, blood culture x2 pending per ED, urine culture pending per ED, pending serum acetone upon requested evaluation of patient as well as repeat 1350 BMP pending upon request evaluation of patient, plain film of the hand with diffuse soft tissue swelling. In the ED patient ministered tetanus update, insulin 10 unit IV x1, transition following then to an insulin drip with administration of IV Levaquin as well as IV vancomycin and morphine 4 mg IV x1. ED discussed case with Dr. Mcbride who noted intention to evaluate patient and amenable to admission to [facility] however given significant concern about appearance did contact the OR and requested Dr. Mcbride evaluate patient prior to any consideration for admission. [facility] Medical History Anxiety COPD (chronic obstructive pulmonary disease) Depression Diabetes Hernia PTSD (post-traumatic stress disorder) Home Medications blood-glucose meter (OneTouch Verio Flex Meter) #1 ea 02/16/22 [Rx Last Taken Unknown] pen needle,diabetic dual safty 30 gauge x 3/16 (BD AutoShield Duo Pen Needle) #100 ea 02/16/22 [Rx Last Taken Unknown] BD AutoShield Duo Pen Needle 30 gauge x 3/16 (pen needle,diabetic dual safty) #100 ea 03/30/22 [Rx Last Taken Unknown] blood sugar diagnostic (OneTouch Verio test strips) #100 ea 03/30/22 [Rx Last Taken Unknown] insulin aspart U-100 100 unit/mL (3 mL) subcutaneous pen (Novolog FlexPen U-100 Insulin aspart) 15 unit (0.15 mL) subcut TID #40.5 mL 03/30/22 [Rx Last Taken Unknown] lancets 26 gauge (Easy Touch Safety Lancets) #200 ea 03/30/22 [Rx Last Taken Unknown] duloxetine 60 mg capsule,delayed release 60 mg PO DAILY 01/11/23 [History Last Taken Unknown] Allergy/AdvReac Type Severity Reaction Status Date / Time amoxicillin Allergy Anaphylaxis Verified 01/11/23 10:31 Penicillins [PCN] Allergy Anaphylaxis Verified 01/11/23 10:31 aspirin [ASA] AdvReac Upset Verified 01/11/23 10:31 Stomach bee venom protein (honey bee) AdvReac Anaphylaxis Verified 01/11/23 10:31 ibuprofen AdvReac Upset Verified 01/11/23 10:31 Stomach oxycodone AdvReac Upset Verified 01/11/23 10:31 Stomach Family History Mother Diabetes Father Diabetes Cancer kidney Kidney disease Surgical History History of back surgery Hx of neck surgery Social History household members: none current occupational status: disabled 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 HEENT: + Lightheadedness, dizziness, occasional blurring with lightheadedness. Eyes: No visual loss, double vision or yellow sclerae. Ears, Nose, Throat: No hearing loss, sneezing, congestion, runny nose or sore throat. SKIN: + Significant left knee and swelling, erythema, denuded skin tissue and exudate. CARDIOVASCULAR: + Lightheadedness, dizziness. No chest pain, chest pressure or chest discomfort, palpitations, edema, orthopnea, syncopal events. RESPIRATORY: No shortness of breath, cough or sputum, wheezing, hemoptysis. GASTROINTESTINAL: + anorexia, nausea. No vomiting or diarrhea, abdominal pain, melena, BRBPR. GENITOURINARY: No dysuria, frequency, urgency or retention. NEUROLOGICAL: + Lightheadedness, dizziness. No headache, syncope, paralysis, ataxia, numbness or tingling in the extremities, focal weakness, change in bowel or bladder control, seizure. MUSCULOSKELETAL: + muscle, back pain, joint pain or stiffness. HEMATOLOGIC: No anemia, bleeding or bruising. LYMPHATICS: No enlarged nodes. No history of splenectomy. PSYCHIATRIC: + history of depression or anxiety. ENDOCRINOLOGIC: No reports of sweating, cold or heat intolerance. + polyuria or polydipsia. ALLERGIES: + History of anaphylaxis. Vital Signs Vital Signs Vital Signs: 01/11/23 10:32 01/11/23 10:36 01/11/23 11:53 Temperature 96.6 F L 96.6 F L Temperature Source Temporal Temporal Pulse Rate 126 H 111 H Respiratory Rate 22 H 20 H Blood Pressure 142/112 H 142/112 H Blood Pressure Mean 122 122 Pulse Ox 89 97 97 Oxygen Delivery Method Room Air Room Air Room Air 01/11/23 13:47 Temperature Temperature Source Pulse Rate 122 H Respiratory Rate 18 Blood Pressure 142/93 H Blood Pressure Mean 109 Pulse Ox Oxygen Delivery Method Room Air Weight Weight: 235 lb 3.026 oz Body Mass Index (BMI) 31.8 Physical Exam Narrative Physical Examination: General: Awake, alert, oriented to self, place and recent events, remains cooperative, seated in the ED bed, fatigued and significantly ill-appearing, foul odor in the room. Skin: Normal color, normal turgor, no icterus, no cyanosis except notable left hand swelling, tense to touch, erythematous, sloughing and maceration of the skin, necrotic tissue evident with extremely foul odor. HEENT: AT/NC, EOMI, PERRLA, dry MM, no carotid bruits or JVD noted. Lungs: Diminished, greater bases, mildly increased respiratory rate but no distress, no rales, ronchi or wheezing. Heart: Tachycardic with regular rhythm; no gallop, rub audible. Abdomen: Soft, NTTP, ND, hyperactive BS, no HSM. Extremities: No cyanosis, no clubbing, see skin. Neurological: Patient awake, alert, oriented as noted, cognitive function suspect decreased from baseline given significant septic presentation; pupils equally reactive to light and accommodation, cranial nerves grossly normal, moving extremities except extremely limited left upper extremity given severity of pain with any movement, strength accordingly severely globally decreased. Psychiatric: Affect appears flat, ill-appearing, anxious. Results Lab / Micro Data 01/11/23 10:37 01/11/23 10:37 Labs: Laboratory Results - last 24 hr 01/11/23 10:37: WBC 17.0 H, RBC 5.31, Hgb 16.0, Hct 49.0, MCV 92.3, MCH 30.1, MCHC 32.7, RDW Std Deviation 42.3, RDW Coeff of Mariza 12.4, Plt Count 372, MPV 10.0, Immature Gran % (Auto) 2.000 H, Neut % (Auto) 83.3 H, Lymph % (Auto) 7.5 L, [place] % (Auto) 6.9, Eos % (Auto) 0.2, Baso % (Auto) 0.1, Absolute Neuts (auto) 14.2 H, Absolute Lymphs (auto) 1.27, Nucleated RBC % 0, ESR 16, PT 17.1 H, INR 1.4, APTT 26.8, Sodium 127 L, Potassium 6.4 H*, Chloride 93 L, Carbon Dioxide 26.0, Anion Gap 8, BUN 63 H, Creatinine 1.37 H, Estim Creat Clear Calc 66.08, Est GFR (MDRD) Af Amer 69, Est GFR (MDRD) Non-Af 57 L, BUN/Creatinine Ratio 46.0 H, Glucose 722 H*, Lactic Acid 2.9 H*, Calcium 10.0, Total Bilirubin 0.60, AST 28, ALT 49, Alkaline Phosphatase 191 H, Total Creatine Kinase 101, Total Protein 8.3 H, Albumin 2.3 L, Globulin 6.0 H, Albumin/Globulin Ratio 0.4 L 01/11/23 12:32: POC Glucose > 500 H* Radiology Impression Hand X-Ray 01/11/23 13:05 IMPRESSION: Diffuse soft tissue swelling. Electronically Signed: Jose Cruz Mcleod MD at 13:30 EDT , Assessment & Plan Assessment/Plan (1) Sepsis: PLAN: Plan The patient is a 57 y/o M w/ PMHx: Anxiety and Depression/PTSD, IDDM, Former tobacco use, Obesity who presents to the [facility] ED on 01/11/23 with history of blunt trauma with fall 1 week prior unfortunately not seeking any medical attention that time secondary to fears of hospital evaluation with significant allergic reactions reportedly to amoxicillin and penicillin with onset of chills but no fevers and inability to use his left hand noted to be vjtag-tpof-cdkdodsz with inability to recall the last time even changed his dressing presenting with the hand itself and plastic secondary to the significant drainage but eventually prompted ED evaluation secondary to worsening symptoms. #1. Hyperglycemia with suspected HHS: Patient administered IV insulin bolus in the ED and started on an insulin drip. If Dr. Mcbride is amenable to keeping the patient, will admit to the ICU with acute specialist consultation, continue on insulin drip, check serial K+, glucose w/ IVF changes pending these levels, serial chemistry, obtain mag, phos daily w/ repletion as needed, transition to home SC regimen when gap closed w/ overlap on drip, nutrition consultation, hemoglobin A1c requested, will request additionally serum osmolality, acetone level requested and pending upon requested evaluation of patient. #2. Acute Sepsis secondary to L hand Trauma with notable Infection/Cellulitis (Source, tachycardia, tachypnea, lactic acidosis, leukocytosis, LINDA, HHS): Will maintain on IV Vanc and Levaquin given allergies, will obtain Wound Cx, will obtain Wound MRSA PCR, plan repeat CBC in AM, continue affected extremity elevation above heart when seated and in bed, monitor erythema outline with VS checks, low threshold to obtain duplex US to assure no DVT concurrently, Surgery consulted and pending, NWB, elevation, pain regimen as needed, Wound RN. #3. Acute hyperkalemia: Admission potassium 6.4, not noted to be hemolyzed, administered IV insulin in the ED, next BMP at 1350, will maintain on telemetry, administer Kayexalate as well as calcium gluconate and continue aggressive hydration with continued serial BMPs. If not improving we will request nephrology immediate involvement. #4. Acute on chronic hyponatremia: Suspect likely related with HHS, admission sodium 127, baseline in the 130s normally, continue treatments as noted above, trend serial BMPs given insulin drip usage as noted. #5. Acute kidney injury: Secondary to acute presentation as noted. Admission BUN/Cr 63/1.37, prior baseline creatinine noted to be 0.6. Will hydrate, hold nephrotoxic medications and repeat chemistry in AM. If no improvement would plan FeNa and renal ultrasound assessment. Urine culture, urinalysis pending upon requested ED evaluation. #6. Anxiety and depression/PTSD: We will continue patient home Cymbalta regimen. #7. Obesity: Weight loss and lifestyle changes encouraged. #8. Former tobacco use: Encourage continued tobacco cessation. #9. DVT prophylaxis: Heparin. #10. CODE status: Patient does not have healthcare power of vice president pharmacy nor living will in place but he notes if he was unable to make medical decisions he would want his friend Cuate Millan (?sp) to be his medical decision-maker if he was unable. Discussed CODE status at length including difference between FULL code, DNR-CCA and DNR-CC status. Following discussions about the differences in these status, requested Full Code status. Advanced Care Planning Face to Face Time: 16 minutes. Charges/Coding Visit Charges Inpatient E&M: 38970 Init Hosp L3 Procedures Hospitalists Procedures: 07576 Advncd Care Plan 30 Min
[2023-01-11] MEDS: Insulin Lispro 10 UNIT in Syringe 0 ML 6 UNIT IV (13:54)
[2023-01-11 13:59] LABS: Bedside Glucose > 500 mg/dL (74-106)
[2023-01-11] MEDS: Vancomycin HCl 2,000 MG in 0.9% Normal Saline (500mL Bag) 500 ML 250 MG IV (14:01)
[2023-01-11 14:03] LABS: Blood Gas Specimen Type VEN; O2 Delivery Device Not entered; SITE Not entered; VBG BASE EXCESS 1 mmol/L (-1.0-3.5); VBG Bicarbonate 25 mmol/L (22-26); VBG PO2 40 mmHg (25-40); VBG SO2 78 % (50-70); VBG TCO2 26 mmol/L (23-33); VBG pCO2 36.5 mmHg (41-51); VBG pH 7.45 (7.32-7.42)
--- NOTE | 2023-01-11 14:20 | NURSING ---
CV ICU 202
[2023-01-11] MEDS: Ondansetron 4 MG/2 ML Vial IV (14:53)
[2023-01-11] MEDS: Diphth,Pertuss(Acell),Tet Vac 0.5 ML Vial IM (14:53)
[2023-01-11 15:03] LABS: Reflex Lactate? Y
--- NOTE | 2023-01-11 15:07 | ED.RN ---
THIS RN CONFIRMED INSULIN DRIP RATE AND PROTOCOL WITH JEANNINE COOMBS. DR. POST NOTIFIED OF BLOOD SUGAR 389. DR. POST NOTIFIED OF INSULIN DRIP RATE DECREASED BY 50% PER PROTOCOL DUE TO BLOOD SUGAR 389.
[2023-01-11 15:14] LABS: Bedside Glucose 389 mg/dL (74-106)
--- NOTE | 2023-01-11 15:30 | NURSING ---
CALLED [facility], ETA IS 30 TO 45 MIN
[2023-01-11] MEDS: 0.9% Normal Saline (1000mL) 1,000 ML 999 ML IV (16:13)
[2023-01-11 16:53] LABS: Bedside Glucose 307 mg/dL (74-106)
--- NOTE | 2023-01-12 05:29 | ED.RN ---
lab called with positive blood culture results. gram positive cocci in clusters, patient transferred to [facility] T2. spoke with nursing staff relayed critical lab results. to them. copy of results faxed to them [phone]
== END 2023-01-11 16:42 | disposition short-term general hospital (02) ==
PROVIDERS: Emergency Medicine; Emergency Provider Family Medicine; Visit Provider Family Medicine
DX: A41.9 Sepsis, unspecified organism (principal); N17.9 Acute kidney failure, unspecified; R65.20 Severe sepsis without septic shock; J44.9 Chronic obstructive pulmonary disease, unspecified; E11.00 Type 2 diabetes mellitus with hyperosmolarity without nonketotic hyperglycemic-hyperosmolar coma (NKHHC); Z79.4 Long term (current) use of insulin; F41.9 Anxiety disorder, unspecified; L03.114 Cellulitis of left upper limb; Z23 Encounter for immunization; E87.5 Hyperkalemia; F32.A Depression, unspecified; E66.9 Obesity, unspecified; Z68.31 Body mass index [BMI] 31.0-31.9, adult; Z88.0 Allergy status to penicillin; Z79.899 Other long term (current) drug therapy; Z87.891 Personal history of nicotine dependence
CPT/HCPCS: 73130; 80053; 82550; 82803; 82962; 83605; 85025; 85610; 85652; 85730; 87040; 87077; 87086; 87186; 90715; 93005; 96365; 96366; 96367; 96375; 96376; 99285; J7030; J7040; J7050; A4216; J2405

== ENCOUNTER → 2023-03-07 | Outpatient (CLI) | payer MEDICAID, SELFPAY ==
--- NOTE | 2023-03-07 20:21 | RAD_ITS ---
STUDY: X-RAY - LEFT HAND REASON FOR EXAM: Male, 57 years old. PAIN TECHNIQUE: 4 view(s) of the hand. COMPARISON: None. FINDINGS: Normal radiocarpal articulation. Normal distal radioulnar joint. Normal visualized carpal bones. Normal carpal articulations Normal carpometacarpal articulation of the thumb. Normal second through fifth carpometacarpal joints. Normal metacarpi. 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 Normal interphalangeal joint of the thumb. Normal proximal and distal phalanges of the thumb. Normal metacarpophalangeal joints of the second through fifth fingers. Normal proximal interphalangeal joints of the second through fifth fingers. Mild degenerative changes of the DIP joints Normal phalanges of the second through fifth fingers. The soft tissue structures are unremarkable. RAD/Hand Min 3 Views IMPRESSION: Mild degenerative change. No acute fracture or other significant pathology Electronically Signed: Cal Pierre MD at 22:57 EST ,
--- NOTE | 2023-03-07 20:22 | RAD_ITS ---
EXAM: XR LEFT WRIST COMPLETE, 3 OR MORE VIEWS CLINICAL INDICATION: PAIN TECHNIQUE: Frontal, lateral and oblique views of the left wrist. COMPARISON: No relevant prior studies available. FINDINGS: BONES/JOINTS: Mild degenerative changes first carpometacarpal joint and first metacarpophalangeal joint. No acute fracture. No subluxation. Normal alignment. No sclerotic or destructive changes observed. SOFT TISSUES: Unremarkable. No soft tissue swelling or gas. No radiopaque foreign body. RAD/Wrist min 3 Views IMPRESSION: Mild degenerative changes first carpometacarpal joint and first metacarpophalangeal joint. No acute abnormality. Electronically Signed: Barron Murillo MD at 0:29 EST ,
== END | disposition home or self-care (01) ==
LOC: RAD 20:16
PROVIDERS: Visit Provider Physician Assistant
DX: M18.12 Unilateral primary osteoarthritis of first carpometacarpal joint, left hand (principal)
CPT/HCPCS: 73110; 73130

== ENCOUNTER 2023-03-21 21:32 | Emergency (ER) | payer MEDICAID, SELFPAY ==
[2023-03-21 21:33] VITALS: BP 126/81; PULSE 124; RESP 18; TEMP 37; O2SAT 99; BMI 21.9
--- NOTE | 2023-03-21 21:43 | EKG12_ITS ---
Test Reason : WOUND Blood Pressure : / mmHG Vent. Rate : 106 BPM Atrial Rate : 106 BPM P-R Int : 132 ms QRS Dur : 112 ms QT Int : 340 ms P-R-T Axes : 070 -56 072 degrees QTc Int : 451 ms Sinus tachycardia Left anterior fascicular block Minimal voltage criteria for LVH, may be normal variant ( [place] product ) Septal infarct , age undetermined Abnormal ECG Confirmed by MIKALA VALLE, RENITA ([id number]), editor city KAREN RICO ([id number]) on 03/22/2023 10:50:38 AM Referred By: Confirmed By:RENITA BACH MD
--- NOTE | 2023-03-21 21:49 | EX.ED.UPPERE ---
HPI History of Present Illness Chief Complaint: Wound Check Narrative Narrative: 57-year-old male, poor informant, presents with open left hand wound. He relates history that he has had an open wound on his left hand for quite some time. He is being seen at the wound care center. He has been unable to change the dressing for the last 2 days because he is running out of supplies. He states he is supposed to change his dressing at least twice a day. He has noted a lot of purulent drainage from his wound, and thinks he may need to be on antibiotics again. He denies any fevers or chills, but states that he needs his dressing changed and that his wound stinks. He relates history of gangrene for which she had to be transferred to [place]. [facility] Medical History Anxiety COPD (chronic obstructive pulmonary disease) Depression Diabetes Hernia PTSD (post-traumatic stress disorder) Home Medications blood-glucose meter (OneTouch Verio Flex Meter) #1 ea 02/16/22 [Rx Last Taken Unknown] pen needle,diabetic dual safty 30 gauge x 3/16 (BD AutoShield Duo Pen Needle) #100 ea 02/16/22 [Rx Last Taken Unknown] BD AutoShield Duo Pen Needle 30 gauge x 3/16 (pen needle,diabetic dual safty) #100 ea 03/30/22 [Rx Last Taken Unknown] blood sugar diagnostic (OneTouch Verio test strips) #100 ea 03/30/22 [Rx Last Taken Unknown] insulin aspart U-100 100 unit/mL (3 mL) subcutaneous pen (Novolog FlexPen U-100 Insulin aspart) 15 unit (0.15 mL) subcut TID #40.5 mL 03/30/22 [Rx Last Taken Unknown] lancets 26 gauge (Easy Touch Safety Lancets) #200 ea 03/30/22 [Rx Last Taken Unknown] duloxetine 60 mg capsule,delayed release 60 mg PO DAILY 01/11/23 [History Last Taken Unknown] cyclobenzaprine 5 mg tablet 5 mg PO Q12H PRN muscle spasm #14 tabs 03/02/23 [Rx Last Taken Unknown] dicyclomine 10 mg capsule 10 mg PO .TID PRN abdominal pain #21 caps 03/02/23 [Rx Last Taken Unknown] hydroxyzine HCl 25 mg tablet 25 mg PO Q8H PRN anxiety, irritability, restlessness #21 tabs 03/02/23 [Rx Last Taken Unknown] Allergy/AdvReac Type Severity Reaction Status Date / Time amoxicillin Allergy Anaphylaxis Verified 03/21/23 21:35 Penicillins [PCN] Allergy Anaphylaxis Verified 03/21/23 21:35 aspirin [ASA] AdvReac Upset Verified 03/21/23 21:35 Stomach bee venom protein (honey bee) AdvReac Anaphylaxis Verified 03/21/23 21:35 ibuprofen AdvReac Upset Verified 03/21/23 21:35 Stomach oxycodone AdvReac Upset Verified 03/21/23 21:35 Stomach Family History Mother Diabetes Father Diabetes Cancer kidney Kidney disease Surgical History History of back surgery Hx of neck surgery Social History household members: none current occupational status: disabled 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 HEENT: No sore throat. No neck pain. No loss of vision. No rhinorrhea. Cardiovascular: No chest pain. No palpitations. No pedal edema. Respiratory: No cough, no shortness of breath. Abdominal: No abdominal pain. No nausea. No vomiting. Genitourinary: No dysuria. No hematuria. Musculoskeletal: Left hand open wound with purulent drainage, unable to change dressing the last 2 days. Neurologic: No headaches. No dizziness. No lightheadedness. Skin: No rash. No change in color. Psychiatric: No depression. Positive anxiety. EXAM Physical Exam Narrative Exam Narrative: Afebrile. Vital signs noted. HEENT: Normocephalic. Atraumatic. PERRL, EOMI. Neck soft and supple. No point tenderness or step off. Cardiovascular: Positive tachycardia no murmurs, rubs, or gallops appreciated. Respiratory: No tachypnea. Lungs clear to auscultation bilaterally. Gastrointestinal: Abdomen soft, nontender, with normoactive bowel sounds. No rebound or guarding. Neurological: Awake. Alert. Nonfocal, nonlateralizing. Skin: No rash. Normal color. No pallor. Musculoskeletal: No pedal edema. Positive wound with purulent drainage on thenar eminence of left hand. Palpable radial pulse, left. Const Vital Signs: 03/21/23 21:33 Temperature 98.6 F Temperature Source Temporal Pulse Rate 124 H Respiratory Rate 18 Blood Pressure 126/81 H Blood Pressure Mean 96 Pulse Ox 99 Oxygen Delivery Method Room Air MDM MDM MDM Narrative Medical decision making narrative: I reviewed the patient's prior records. There was concern for necrotizing fasciitis back in December when he was initially seen for the open wound on his hand from a fall a week prior to this. Patient states that he is here for a dressing change, and that his wound actually is improved. There is only purulent drainage because he was unable to change the dressing twice a day, and it has been draining over the last 1 to 2 months. He sees a physician at [facility] for his hand wound. He states that he is merely here because he needs more supplies to change his dressing. He was told that we do not have free supplies to give him, but we will change his dressing tonight. He will follow-up with the wound care center, and states he was unable to go today because his truck would not start. He was told of the risk of signing out against AMA, that if there is any air in the tissue on x-ray or concern for necrotizing fasciitis, that he could lose his hand, or become septic and . He acknowledges an understanding. I do feel he has a capacity to sign out AGAINST MEDICAL ADVICE. He will follow-up with the wound care center tomorrow. Disposition is signed out AGAINST MEDICAL ADVICE. I was able to obtain an EKG initially as part of the sepsis work-up, and it was interpreted by myself independently as sinus tachycardia at 106 bpm without ectopy or acute ST changes. No STEMI. He is refusing all blood work and imaging. Discharge Plan Triage Chief Complaint: Wound Check ED Provider: Jeffy Dutton Dx/Rx/DC Orders Clinical Impression: Left against medical advice, Open wound of left hand Instructions: ED Wound Check (Infection) Prescriptions: No Action insulin aspart U-100 [Novolog FlexPen U-100 Insulin] 100 unit/mL (3 mL) insulin pen 15 unit subcut TID Qty: 40.5 1RF Patient Comments: PT STATES HAS NOT TAKEN IN SEVERAL MONTHS DUE TO MAKES HIM SICK. (DME) lancets [Easy Touch Safety Lancets] 26 gauge misc See Rx Instructions .Route Qty: 200 5RF Rx Instructions: 4x/day (DME) OneTouch Verio test strips Strip See Rx Instructions .Route Qty: 100 5RF Rx Instructions: BID (DME) BD AutoShield Duo Pen Needle 30 gauge x 3/16 needle See Rx Instructions .Route Qty: 100 5RF Rx Instructions: 4x/day duloxetine 60 mg capsule,delayed release(DR/EC) 60 mg PO DAILY dicyclomine 10 mg capsule 10 mg PO .TID PRN (Reason: abdominal pain) Qty: 21 0RF Rx Instructions: Take only as needed for abdominal cramping. hydroxyzine HCl 25 mg tablet 25 mg PO Q8H PRN (Reason: anxiety, irritability, restlessness) Qty: 21 0RF Rx Instructions: Take only as needed for anxiety, irritability, and restlessness. cyclobenzaprine 5 mg tablet 5 mg PO Q12H PRN (Reason: muscle spasm) Qty: 14 0RF Rx Instructions: Take only as needed for muscle spasms. (DME) BD AutoShield Duo Pen Needle 30 gauge x 3/16 needle See Rx Instructions .Route Qty: 100 5RF Rx Instructions: BID (DME) blood-glucose meter [OneTouch Verio Flex meter] [facility] See Rx Instructions .Route Qty: 1 0RF Rx Instructions: As directed Primary Care Provider: Care Physician,No Primary Referrals: Care Physician,No Primary [Primary Care Provider] - Wound,Center [Non-Staff] - 1 Day Disposition Disposition: Home, Self Care
--- NOTE | 2023-03-21 21:53 | ED.RN ---
Pt states you aint getting no blood from me. This RN explained that we need to draw blood cultures and do imaging to ensure that his wound is not infected as it is covered in green and yellow eschar. Pt states it's just medical honey and he only came for dressing supplies and has wound care appt soon.
--- NOTE | 2023-03-21 22:11 | ED.RN ---
This RN attempted to remove old dressing. Black and green eschar present and part of the dressing was attached and painful to take off. Sterile water used to try to remove. Pt refued any further removal of dressing stating he was going to wound care in the am for debridement. This RN cleaned and redressed wound to best ability and what pt would allow. Left ama.
== END 2023-03-21 22:17 | disposition left against medical advice (07) ==
PROVIDERS: Emergency Provider Emergency Medicine; Visit Provider Emergency Medicine
DX: Z48.00 Encounter for change or removal of nonsurgical wound dressing (principal); J44.9 Chronic obstructive pulmonary disease, unspecified; E11.9 Type 2 diabetes mellitus without complications; Z79.4 Long term (current) use of insulin; S61.402A Unspecified open wound of left hand, initial encounter; X58.XXXA Exposure to other specified factors, initial encounter; Z53.29 Procedure and treatment not carried out because of patient's decision for other reasons; Z79.899 Other long term (current) drug therapy; Z87.891 Personal history of nicotine dependence
CPT/HCPCS: 93005; 99283

== ENCOUNTER 2023-03-22 13:15 | Outpatient (RCR) | payer MEDICAID, SELFPAY ==
[2023-03-01 13:33] VITALS: BP 146/93; PULSE 116; RESP 18; TEMP 36.1; O2SAT 97
--- NOTE | 2023-03-06 10:19 | PCM.WC.HP ---
History of Present Illness Date of Service: 03/01/23 History of Wound: L hand wound Progress of Wound: Mr. Barron Aldana is a 57 y/o male who presents to the wound healing center today for evaluation and management of a left hand wound. The patient is hyperactive and unfocused during the visit today. He demonstrated tangential thinking and it was very difficult to elicit pertinent information. He appears to be an unreliable historian and as such history is rather unclear and was supplemented as best as possible by available records. On January 11, 2023, patient presented to the [facility] ER with a left hand injury at that time reportedly after a fall onto a fiberglass pole. His hand was noted to be wrapped in plastic followed by gauze and then a plastic bag which was by their report adhered to the injury. The wound was significantly infected. He also had a blood sugar of 776 at that time along with potassium of 6.4. Ultimately there was concern for necrotizing fasciitis so patient was transferred to [facility] for evaluation by hand surgery. Reviewed available records from [facility] in [place]. Upon arrival at [facility] on 01/11/2023 he underwent emergent surgical debridement including open release of the carpal tunnel and tenosynovial biopsy and then on 01/19/2023 had a second operation including sharp excisional debridement of skin, subcutaneous tissues, muscle at site of infection, left hand dorsal full-thickness skin graft, left wrist to repeat flexor tenosynovectomy. He was cleared for discharge from [facility] on 01/23/2023 with instructions to follow-up with orthopedics as an outpatient. [facility] was [facility] to [facility] given need for ongoing wound care and IV antibiotics. 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 Of significant note, patient does have a history of opioid abuse and reportedly prior to this incident she had been sober for over a decade. Understandably with this he did receive narcotic pain medications while admitted and even at discharge. When he was admitted, he was not felt to be going through any withdrawal in the stilted notes some symptoms of agitation/restlessness at that time. His tox screen in the hospital was positive for amphetamines but patient reports from using his friend's Adderall not from illicit/IV drug abuse. Additionally he was noted to have opioid-induced hyperalgesia. Furthermore patient is an uncontrolled type II diabetic who prior to this admission had self discontinued his insulin. As noted he was discharged from [facility] to [facility] in [place]. I have only a small portion of these records available for review. Notably, his medication list includes methadone which patient reports he is not currently receiving. In their note from 07/2022 the wound was noted to have eschar overlying most of the and the size was noted to be 8 x 12 cm. His left hand was noted to be swollen with nonpitting edema. The wound management was noted to be included dry dressing of barrier film and roll gauze followed by Zay wrap. [facility] this [facility]. It is unclear where he is now living, he told nursing in a car. He brought with him a prescription bottle of Percocet and indicates this is the only pain medication he has been prescribed despite his opioid tolerance and having been receiving IV opioid pain medications up until his discharge. It is unclear if he is adhering to an insulin regimen though I favor not. He reports that he feels he is going through opioid withdrawals and he denies having any prescribed medications from his discharge to help with this. He reports not having a primary care, though chart review indicates he has seen [facility] in the past. He now indicates a desire to follow-up with [facility] physicians based upon the recommendation of someone from the acute care facility. Patient tells me that he has been heating up Medihoney and applying this to the wound followed by gauze wrap. In addition, he reports soaking his hand and ice baths. It is not clear how frequently he is changing his dressings. He is extremely hypersensitive to touch, even removing the dressings is challenging as he pulls away and reports significant pain. He cannot tolerate any probing or debridement of the wound today. The wound itself is mostly covered by eschar/necrotic tissue, visible wound bed has slough and some granulation tissue. Do note some serous drainage. No obvious purulence. There is erythema at the edges of the wounds but not extending proximally. The left hand is edematous but no excessive warmth. [facility] Medical History Anxiety COPD (chronic obstructive pulmonary disease) Depression Diabetes Hernia PTSD (post-traumatic stress disorder) Home Medications blood-glucose meter (OneTouch Verio Flex Meter) #1 ea 02/16/22 [Rx Last Taken Unknown] pen needle,diabetic dual safty 30 gauge x 3/16 (BD AutoShield Duo Pen Needle) #100 ea 02/16/22 [Rx Last Taken Unknown] BD AutoShield Duo Pen Needle 30 gauge x 3/16 (pen needle,diabetic dual safty) #100 ea 03/30/22 [Rx Last Taken Unknown] blood sugar diagnostic (OneTouch Verio test strips) #100 ea 03/30/22 [Rx Last Taken Unknown] insulin aspart U-100 100 unit/mL (3 mL) subcutaneous pen (Novolog FlexPen U-100 Insulin aspart) 15 unit (0.15 mL) subcut TID #40.5 mL 03/30/22 [Rx Last Taken Unknown] lancets 26 gauge (Easy Touch Safety Lancets) #200 ea 03/30/22 [Rx Last Taken Unknown] duloxetine 60 mg capsule,delayed release 60 mg PO DAILY 01/11/23 [History Last Taken Unknown] cyclobenzaprine 5 mg tablet 5 mg PO Q12H PRN muscle spasm #14 tabs 03/02/23 [Rx Last Taken Unknown] dicyclomine 10 mg capsule 10 mg PO .TID PRN abdominal pain #21 caps 03/02/23 [Rx Last Taken Unknown] hydroxyzine HCl 25 mg tablet 25 mg PO Q8H PRN anxiety, irritability, restlessness #21 tabs 03/02/23 [Rx Last Taken Unknown] Allergy/AdvReac Type Severity Reaction Status Date / Time amoxicillin Allergy Anaphylaxis Verified 01/11/23 10:31 Penicillins [PCN] Allergy Anaphylaxis Verified 01/11/23 10:31 aspirin [ASA] AdvReac Upset Verified 01/11/23 10:31 Stomach bee venom protein (honey bee) AdvReac Anaphylaxis Verified 01/11/23 10:31 ibuprofen AdvReac Upset Verified 01/11/23 10:31 Stomach oxycodone AdvReac Upset Verified 01/11/23 10:31 Stomach Family History Mother Diabetes Father Diabetes Cancer kidney Kidney disease Surgical History History of back surgery Hx of neck surgery Social History household members: none current occupational status: disabled 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 Smoking Status: Former smoker quit date: 04/23/94 pack-years: 60 Electronic Cigarette Use: not used alcohol intake: former year quit: 2007 substance use type: other details: reports unintentional use of methamphetamine in the past what type of physical activity do you participate in: none do you feel safe at home: Yes Physical Exam Const alert, oriented x3 and no apparent distress HEENT normocephalic, head/scalp atraumatic, hearing grossly normal bilaterally, external ears normal and external nose normal Eyes EOMs intact bilaterally General Eye: normal appearance of both eyes Neck full ROM General: normal visual inspection and trachea midline Resp normal respiratory effort, normal air movement, no retractions and no use of accessory muscles Effort and Inspection: able to speak in complete sentences; Negative for labored, stridor or audible wheezes Cardio regular rate Rate: tachycardic Skin Wound Narrative: Left hand wound mostly covered by eschar/necrotic tissue, visible wound bed has slough and some granulation tissue. Do note some serous drainage. No obvious purulence. There is erythema at the edges of the wounds but not extending proximally. The left hand is edematous but no excessive warmth. Psych Appearance: disheveled Attitude: agitated Activity / Motor Behavior: restless Speech: normal speech Mood & Affect: euthymic mood Thought Process: tangential Thought Content: normal thought content Judgement: questionable Debridement Note Debridement Note No debridement was completed: No debridement was completed today Post-Debridement Measurements and Additional Note: Post-Debridement Measurements/Treatment - Nurse 1 - General Ulcer Assessment Start: 03/01/23 13:33 Freq: Status: Active Protocol: SHILPA Activity Type Activity Date Activity User E-sign Co-sign Detail Recorded Client Recorded Date Recorded By Document 03/01/23 13:33 KW Desktop 03/01/23 13:50 KW 03/01/23 13:33 - Today's Visit Information Type of service Initial Visit Vital Signs Temperature (97.8 F-99.1 F) 97 F L Temperature Source Temporal Pulse Rate (60-100) 116 H Pulse Location Monitor Respiratory Rate (12-18) 18 Respiratory rate source Observation Pulse Oximetry 97 Oxygen Delivery Method Room Air Blood Pressure (90/60-120/80) 146/93 H Blood Pressure Mean 110 Source Monitor Position Sitting Blood Pressure Location Right Arm History Since Last Visit- (Skip if this is Patient's initial visit) Left Footwear Regular Shoe Right Footwear Regular Shoe Pain Scale: 0-10 Numeric Is Patient Pain Free? Yes Communication Assessment Preferred language Djib[place]ian Chainsaw Mechanic Required No Able to Read Yes Able to Write Yes Communication Tools None Caregiver Communication Skills No Impairment Impairment Right Hearing Abillity Normal Left Hearing Abillity Normal Visual Assistive Devices Glasses Teaching Assessment Preferences Verbal,Written, Audio/Visual Barriers to Learning None Readiness To Learn Excellent Willingness to Engage in Self Management High Activies Readiness to Engage in Self Management High Activities Anxiety Level Calm Cooperation Cooperative Perception Coherent Interest in Health Problem Asks Questions Education Importance Acknowledges Need Does Patient Smoke tobacco or other Yes substances Functional Assessment Recent Decline in Ability to Perform Denies Any Declines Assistive Device With Patient No Culture/Temple/High Wire Artist Cultural/Temple Needs that may affect No Treatment Plan Would you allow our hospital batter mixer to No meet you for the purpose of spiritual/ emotional support? High Wire Artist to contact place of rastafari No Teaching: Wound Center Welcome to the Wound Care Center English DELGADO - Nurse 1 - General Ulcer Measurement Start: 03/01/23 13:33 Freq: Status: Active Protocol: Activity Type Activity Date Activity User E-sign Co-sign Detail Recorded Client Recorded Date Recorded By Document 03/01/23 13:33 KW Desktop 03/01/23 13:50 KW 03/01/23 13:33 Wound Center Nurse 1 #2 LT THUMB Dorsal -Current Size (cm) - Length 6 -Current Size (cm) - Width 4 -Total Square Cm 24 -Wound Margin Distinct, Outline Attached -Granulation Amt None Present (0 %) -Necrosis Amt Large (67-100%) -Necrotic Tissue Type Eschar -Texture (Soo-wound Skin Appearance) Assessed, Localized Edema -Moisture (Soo-wound Skin Appearance) Assessed -Color (Soo-wound Skin Appearance) Assessed, Erythema -Temperature (Soo-wound Skin No Abnormality Appearance) (Pt Warm) -Ulcer Cleansing Rinsed/ Irrigated with Saline -Foul Odor after Cleansing No -Anesthetic Used 4% Lidocaine Solution #1 LT PALM -Current Size (cm) - Length 6.5 -Current Size (cm) - Width 6.5 -Total Square Cm 42.25 -Photo Taken Yes -Exudate Amt Small -Exudate Type Serosanguineous -Wound Margin Distinct, Outline Attached -Granulation Amt Small (1-33%) -Granulation Quality Red -Necrosis Amt Large (67-100%) -Necrotic Tissue Type Eschar -Texture (Soo-wound Skin Appearance) Assessed, Localized Edema -Moisture (Soo-wound Skin Appearance) Assessed -Color (Soo-wound Skin Appearance) Assessed, Erythema -Temperature (Soo-wound Skin No Abnormality Appearance) (Pt Warm) -Ulcer Cleansing Rinsed/ Irrigated with Saline -Foul Odor after Cleansing No -Anesthetic Used 4% Lidocaine Solution DANNY - Nurse 2 - General Ulcer CM Notes Start: 03/01/23 13:33 Freq: Status: Active Protocol: Activity Type Activity Date Activity User E-sign Co-sign Detail Recorded Client Recorded Date Recorded By Document 03/01/23 16:11 PL [id number] 03/01/23 16:16 PL 03/01/23 16:11 Wound Center Nurse 2 #2 LT THUMB Dorsal -Time 14:01 -Procedure Performed No -Post Debridement (cm) - Length 6.0 -Post Debridement (cm) - Width 1.2 -Post Debridement (cm) - Depth 0.1 -Total Square (Post) (cm) 7.20 #1 LT PALM -Time 14:01 -Procedure Performed No -Post Debridement (cm) - Length 7.0 -Post Debridement (cm) - Width 7.3 -Post Debridement (cm) - Depth 0.1 -Total Square (Post) (cm) 51.10 Pain Scale: 0-10 Numeric Is Patient Pain Free? Yes DANNY - Nurse 3 - General Ulcer D/C NN Start: 03/01/23 13:33 Freq: Status: Active Protocol: Activity Type Activity Date Activity User E-sign Co-sign Detail Recorded Client Recorded Date Recorded By Document 03/01/23 14:41 Desktop 03/01/23 14:41 03/01/23 14:41 Wound Care Center Nurse 3 #2 LT THUMB Dorsal -Ulcer Cleansing Not Cleansed -Foul Odor after Cleansing No -Primary Dressing Applied NonAdherent Contact Layer -Primary Dressing Covered/Secured with Dry Gauze & Roll Gauze, Secured with Tape #1 LT PALM -Ulcer Cleansing Not Cleansed -Foul Odor after Cleansing No -Negative Pressure Wound Therapy N/A -Primary Dressing Applied NonAdherent Contact Layer -Primary Dressing Covered/Secured with Dry Gauze & Roll Gauze, Secured with Tape Pain Scale: 0-10 Numeric Is Patient Pain Free? Yes WC - Visit Discharge Discharge Condition Stable Ambulatory Status Ambulatory Transportation Private Auto Medication Reconcilliation completed & Yes provided to patient/care provider Clinical Summary of Care Provided Yes Charges/Coding Visit Charges Office Visits / Consults: [id number] OV L3 New Assessment/Plan Assessment/Plan (1) Open wound of left hand: CODE(S): S61.402A - Unspecified open wound of left hand, initial encounter (2) Diabetes: CODE(S): E11.9 - Type 2 diabetes mellitus without complications (3) History of opioid abuse: CODE(S): F11.11 - Opioid abuse, in remission PLAN: Plan Based upon review of available records, it would seem that his wound is overall stable from when he was discharged from the acute care facility. There are no obvious signs of infection on exam today although exam was limited by patient's extreme hypersensitivity to touch. The wound is covered in large portion in eschar/necrotic tissue which I was not able to debride today secondary to the above. I will refer for evaluation by Dr. Goldstein with plastic surgery for consideration of possible operative debridement. In addition, due to my limited exam I have ordered an x-ray to assess for any evidence of new or worsening osteomyelitis. Patient did just recently complete 6 weeks of IV therapy so will not prescribe any antibiotics at this time in the absence of obvious signs of infection. I have also referred him to follow-up with infectious disease now as an outpatient for their input. For wound care, I will prescribe Santyl for chemical debridement. He is to apply nickel thick layer of Santyl to the wound and then cover with Adaptic followed by dry dressing. He is to change this wound daily or more often as needed. He is to keep the wound clean and dry at all times. I had desired to do Betadine around the edges of the wound to decrease risk of infection, but patient refused stating Betadine caused excessive skin irritation. Instead, he is instructed to gently wash his arm and around the rest of his hand with antibacterial soap and water and pat to dry daily. He is specifically instructed not to submerge and soak the hand as this could increase risk for infection. I do have concern over compliance to proper wound care. Patient reports he feels that he is in opioid withdrawal. From available records, it does seem that he is mostly at his baseline but given that he seems to be receiving IV Dilaudid and methadone at acute care facility and now at least by his report not receiving methadone and only using Percocet as prescribed does seem reasonable that he could be going through withdrawal. He is clearly restless today and he also complains of abdominal cramping and muscle cramps. As he is not yet established with a PCP, I will prescribe some medications to assist with this possible withdrawal symptoms. These include hydroxyzine 25 mg to be taken by mouth as needed for anxiety, irritability, and restlessness; dicyclomine 10 mg to be taken by mouth every 8 hours as needed for abdominal cramping; cyclobenzaprine 5 mg to be taken by mouth as needed for muscle spasms. He is encouraged to take these only as directed as taking more than prescribed could cause adverse effects. Likewise he is counseled to take his previously prescribed Percocet only as directed as taking this in excessive amounts or too frequently can lead to adverse effects including but not limited to respiratory depression and . He is counseled against utilizing any illicit drugs or nonprescribed medications. I strongly encouraged him to ensure that he obtains his insulin as previously prescribed and maintains good glycemic control. We discussed that persistently elevated blood sugars can lead to serious complications including but not limited to persistent delayed wound healing and infection. I have strongly advised him to ensure he sets up follow-up with primary care. He is assured that he may call and make the appointment on his own but I will also send a referral to try to facilitate this. It is unclear if he is following with orthopedics now as an outpatient and/or pain management or addiction specialists but he is encouraged to do so as previously referred by acute care provider/[facility] providers. He will return to the wound healing center in 1 week. He will call with any questions or concerns.
[2023-03-08 14:09] VITALS: BP 102/71; PULSE 118; RESP 16; TEMP 36.6
[2023-03-08 15:09] LABS: Bedside Glucose 185 mg/dL (74-106)
--- NOTE | 2023-03-09 07:34 | PCM.WC.PN ---
History of Present Illness Date of Service: 03/08/23 History of Wound: L hand wound Progress of Wound: Mr. Barron Aldana is a 57 y/o male who presents to the wound healing center today for evaluation and management of a left hand wound. The patient is hyperactive and unfocused during the visit today. He demonstrated tangential thinking and it was very difficult to elicit pertinent information. He appears to be an unreliable historian and as such history is rather unclear and was supplemented as best as possible by available records. On January 11, 2023, patient presented to the [facility] ER with a left hand injury at that time reportedly after a fall onto a fiberglass pole. His hand was noted to be wrapped in plastic followed by gauze and then a plastic bag which was by their report adhered to the injury. The wound was significantly infected. He also had a blood sugar of 776 at that time along with potassium of 6.4. Ultimately there was concern for necrotizing fasciitis so patient was transferred to [facility] for evaluation by hand surgery. Reviewed available records from [facility] in [place]. Upon arrival at [facility] on 01/11/2023 he underwent emergent surgical debridement including open release of the carpal tunnel and tenosynovial biopsy and then on 01/19/2023 had a second operation including sharp excisional debridement of skin, subcutaneous tissues, muscle at site of infection, left hand dorsal full-thickness skin graft, left wrist to repeat flexor tenosynovectomy. He was cleared for discharge from [facility] on 01/23/2023 with instructions to follow-up with orthopedics as an outpatient. He was discharged to [facility] given need for ongoing wound care and IV antibiotics. 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 Of significant note, patient does have a history of opioid abuse and reportedly prior to this incident she had been sober for over a decade. Understandably with this he did receive narcotic pain medications while admitted and even at discharge. When he was admitted, he was not felt to be going through any withdrawal in the stilted notes some symptoms of agitation/restlessness at that time. His tox screen in the hospital was positive for amphetamines but patient reports from using his friend's Adderall not from illicit/IV drug abuse. Additionally he was noted to have opioid-induced hyperalgesia. Furthermore patient is an uncontrolled type II diabetic who prior to this admission had self discontinued his insulin. As noted he was discharged from [facility] to [facility] in [place]. I have only a small portion of these records available for review. Notably, his medication list includes methadone which patient reports he is not currently receiving. In their note from 07/2022 the wound was noted to have eschar overlying most of the and the size was noted to be 8 x 12 cm. His left hand was noted to be swollen with nonpitting edema. The wound management was noted to be included dry dressing of barrier film and roll gauze followed by Zay wrap. He was discharged from [facility] earlier this week. It is unclear where he is now living, he told nursing in a car. He brought with him a prescription bottle of Percocet and indicates this is the only pain medication he has been prescribed despite his opioid tolerance and having been receiving IV opioid pain medications up until his discharge. It is unclear if he is adhering to an insulin regimen. He reports that he feels he is going through opioid withdrawals and he denies having any prescribed medications from his discharge to help with this. He reports not having a primary care, though chart review indicates he has seen [facility] in the past. He now indicates a desire to follow-up with [facility] based upon the recommendation of someone from the acute care facility. Patient tells me that he has been heating up Medihoney and applying this to the wound followed by gauze wrap. In addition, he reports soaking his hand and ice baths. It is not clear how frequently he is changing his dressings. Subjective Subjective He has not picked up any of the prescriptions I sent, still complaining of withdrawal-related symptoms. He has not picked up the Santyl from the pharmacy so has continued with MediHoney, gauze wrap, states he has been changing daily though is short on supplies. He did not receive the supplies we ordered, says it was probably stolen by someone else in his building. He has not made an appointment to establish with primary care. He did get the XRs as ordered which did not show any evidence of bone involvement or osteomyelitis, just the soft tissue swelling that is also apparent on exam. He reports pain is overall stable. No N/V, F/C, increased drainage, or foul odor. Objective Data Objective Data Vital Signs: Vital Signs Temp Pulse Resp BP Pulse Ox O2 Del Method 97.9 F 118 H 16 102/71 97 Room Air 03/08/23 14:09 03/08/23 14:09 03/08/23 14:09 03/08/23 14:09 03/01/23 13:33 03/08/23 14:09 Oxygen Delivery Method Room Air Lab / Micro Data Labs: Laboratory Results - last 24 hr 03/08/23 14:51: POC Glucose 185 H Charges/Coding Visit Charges Office Visits / Consults: 46108 OV L3 Est Physical Exam Const alert, oriented x3 and no apparent distress HEENT normocephalic, head/scalp atraumatic, hearing grossly normal bilaterally, external ears normal and external nose normal Eyes EOMs intact bilaterally General Eye: normal appearance of both eyes Neck full ROM General: normal visual inspection and trachea midline Resp normal respiratory effort, normal air movement, no retractions and no use of accessory muscles Effort and Inspection: able to speak in complete sentences; Negative for labored, stridor or audible wheezes Cardio regular rate Rate: tachycardic Skin Wound Narrative: Left hand wound mostly covered by eschar/necrotic tissue, visible wound bed has slough and some granulation tissue. Do note some serous drainage. No obvious purulence. The left hand is edematous but no excessive warmth. Psych Appearance: disheveled Attitude: agitated Activity / Motor Behavior: restless Speech: normal speech Mood & Affect: euthymic mood Thought Process: tangential Thought Content: normal thought content Judgement: questionable Debridement Note Debridement Note No debridement was completed: No debridement was completed today Post-Debridement Measurements and Additional Note: Post-Debridement Measurements/Treatment - Nurse 1 - General Ulcer Assessment Start: 03/01/23 13:33 Freq: Status: Active Protocol: SHILPA Activity Type Activity Date Activity User E-sign Co-sign Detail Recorded Client Recorded Date Recorded By Document 03/01/23 13:33 KW Desktop 03/01/23 13:50 KW Document 03/08/23 14:09 [facility] Desktop 03/08/23 14:16 [facility] 03/01/23 03/08/23 13:33 14:09 - Today's Visit Information Type of service Initial Visit Follow-up Visit (Physician/DIRECTOR OF PLANT OPERATIONS ) Arrival Mode Ambulatory,Cane Transfer Assistance None Patient Identification Verified (Name & Yes ) Patient Requires Transmission-Based No Precautions Vital Signs Temperature (97.8 F-99.1 F) 97 F L 97.9 F Temperature Source Temporal Temporal Pulse Rate (60-100) 116 H 118 H Pulse Location Monitor Monitor Respiratory Rate (12-18) 18 16 Respiratory rate source Observation Pulse Oximetry 97 Oxygen Delivery Method Room Air Room Air Blood Pressure (90/60-120/80) 146/93 H 102/71 Blood Pressure Mean (mm Hg) 110 81 Source Monitor Monitor Position Sitting Sitting Blood Pressure Location Right Arm Right Arm History Since Last Visit- (Skip if this is Patient's initial visit) Have you changed medications since your No last visit? Any new allergies or adverse reactions No Had a fall/change in ADL's that may No increase risk of falls Signs or symptoms of abuse and/or No neglect since last visit Have you been in the hospital since your No last visit? Has dressing in place as prescribed Yes Has compression in place as prescribed N/A Has offloadiing in place as prescribed N/A Experienced any changes in pain level or No management Left Footwear Regular Shoe Regular Shoe Right Footwear Regular Shoe Regular Shoe Pain Scale: 0-10 Numeric Is Patient Pain Free? Yes Yes Communication Assessment Preferred language French Employment Coach Required No Able to Read Yes Able to Write Yes Communication Tools None Caregiver Communication Skills No Impairment Impairment Right Hearing Abillity Normal Left Hearing Abillity Normal Visual Assistive Devices Glasses Teaching Assessment Preferences Verbal,Written, Audio/Visual Barriers to Learning None Readiness To Learn Excellent Willingness to Engage in Self Management High Activies Readiness to Engage in Self Management High Activities Anxiety Level Calm Cooperation Cooperative Perception Coherent Interest in Health Problem Asks Questions Education Importance Acknowledges Need Does Patient Smoke tobacco or other Yes substances Functional Assessment Recent Decline in Ability to Perform Denies Any Declines Assistive Device With Patient No Culture/Jew/Firer Helper Cultural/Jew Needs that may affect No Treatment Plan Would you allow our hospital multiple drill operator to No meet you for the purpose of spiritual/ emotional support? Firer Helper to contact place of confucianist No Teaching: Wound Center Welcome to the Wound Care Center French - Nurse 1 - General Ulcer Measurement Start: 03/01/23 13:33 Freq: Status: Active Protocol: Activity Type Activity Date Activity User E-sign Co-sign Detail Recorded Client Recorded Date Recorded By Document 03/01/23 13:33 KW Desktop 03/01/23 13:50 KW Document 03/08/23 14:09 BM Desktop 03/08/23 14:16 [facility] 03/01/23 03/08/23 13:33 14:09 Wound Center Nurse 1 #2 LT THUMB Dorsal -Combined with other wound No -Current Size (cm) - Length 6 -Current Size (cm) - Width 4 -Total Square Cm 24 -Date of Last Picture (Recall this 03/08/23 field) -Photo Taken Yes -Epithelialization Small 1-33% -Tunneling No -Undermining/Tunneling No -Circular Undermining No -Exudate Amt Medium -Exudate Type Serosanguineous -Wound Margin Distinct, Distinct, Outline Outline Attached Attached -Granulation Amt None Present (0 Small (1-33%) %) -Granulation Quality [place] -Slough/Fibrin Yes -Necrosis Amt Large (67-100%) Large (67-100%) -Necrotic Tissue Type Eschar Adherent Slough -Texture (Soo-wound Skin Appearance) Assessed, Assessed, Localized Edema Scarring -Moisture (Soo-wound Skin Appearance) Assessed Assessed,Dry/ Scaly -Color (Soo-wound Skin Appearance) Assessed, Assessed Erythema -Temperature (Soo-wound Skin No Abnormality No Abnormality Appearance) (Pt Warm) (Pt Warm) -Tenderness on Palpation (Soo-wound No Skin Appearance) -Ulcer Cleansing Rinsed/ Soap and Water Irrigated with Saline -Foul Odor after Cleansing No No -Anesthetic Used 4% Lidocaine 4% Lidocaine Solution Solution #1 LT PALM -Combined with other wound No -Current Size (cm) - Length 6.5 5.5 -Current Size (cm) - Width 6.5 7 -Current Size (cm) - Depth 0.1 -Total Square Cm 42.25 38.5 -Date of Last Picture (Recall this 03/08/23 field) -Photo Taken Yes Yes -Epithelialization None Present -Tunneling No -Undermining/Tunneling No -Circular Undermining No -Exudate Amt Small Large -Exudate Type Serosanguineous Serosanguineous -Wound Margin Distinct, Distinct, Outline Outline Attached Attached -Granulation Amt Small (1-33%) Small (1-33%) -Granulation Quality Red Red -Slough/Fibrin Yes -Necrosis Amt Large (67-100%) Large (67-100%) -Necrotic Tissue Type Eschar Eschar -Texture (Soo-wound Skin Appearance) Assessed, Assessed, Localized Edema Scarring -Moisture (Soo-wound Skin Appearance) Assessed No Abnormality, Dry/Scaly -Color (Soo-wound Skin Appearance) Assessed, Assessed Erythema -Temperature (Soo-wound Skin No Abnormality No Abnormality Appearance) (Pt Warm) (Pt Warm) -Tenderness on Palpation (Soo-wound No Skin Appearance) -Ulcer Cleansing Rinsed/ Soap and Water Irrigated with Saline -Foul Odor after Cleansing No No -Anesthetic Used 4% Lidocaine 4% Lidocaine Solution Solution DANNY - Nurse 2 - General Ulcer CM Notes Start: 03/01/23 13:33 Freq: Status: Active Protocol: Activity Type Activity Date Activity User E-sign Co-sign Detail Recorded Client Recorded Date Recorded By Document 03/01/23 16:11 PL [id number] 03/01/23 16:16 PL 03/01/23 16:11 Wound Center Nurse 2 #2 LT THUMB Dorsal -Time 14:01 -Procedure Performed No -Post Debridement (cm) - Length 6.0 -Post Debridement (cm) - Width 1.2 -Post Debridement (cm) - Depth 0.1 -Total Square (Post) (cm) 7.20 #1 LT PALM -Time 14:01 -Procedure Performed No -Post Debridement (cm) - Length 7.0 -Post Debridement (cm) - Width 7.3 -Post Debridement (cm) - Depth 0.1 -Total Square (Post) (cm) 51.10 Pain Scale: 0-10 Numeric Is Patient Pain Free? Yes - Nurse 3 - General Ulcer D/C NN Start: 03/01/23 13:33 Freq: Status: Active Protocol: Activity Type Activity Date Activity User E-sign Co-sign Detail Recorded Client Recorded Date Recorded By Document 03/01/23 14:41 GM Desktop 03/01/23 14:41 GM Document 03/08/23 14:41 KW Desktop 03/08/23 14:42 KW 03/01/23 03/08/23 14:41 14:41 Wound Care Center Nurse 3 #2 LT THUMB Dorsal -Ulcer Cleansing Not Cleansed -Foul Odor after Cleansing No -Primary Dressing Applied NonAdherent NonAdherent Contact Layer Contact Layer -Primary Dressing Covered/Secured with Dry Gauze & Dry Gauze & Roll Gauze, Roll Gauze, Secured with Secured with Tape Tape #1 LT PALM -Ulcer Cleansing Not Cleansed -Foul Odor after Cleansing No -Negative Pressure Wound Therapy N/A -Primary Dressing Applied NonAdherent Contact Layer -Primary Dressing Covered/Secured with Dry Gauze & Roll Gauze, Secured with Tape Pain Scale: 0-10 Numeric Is Patient Pain Free? Yes Yes WC - Visit Discharge Discharge Condition Stable Stable Ambulatory Status Ambulatory Ambulatory,Cane Transportation Private Auto Private Auto Medication Reconcilliation completed & Yes No provided to patient/care provider Clinical Summary of Care Provided Yes Yes Assessment/Plan Assessment/Plan (1) Open wound of left hand: CODE(S): S61.402A - Unspecified open wound of left hand, initial encounter (2) Diabetes: CODE(S): E11.9 - Type 2 diabetes mellitus without complications (3) History of opioid abuse: CODE(S): F11.11 - Opioid abuse, in remission PLAN: Plan Patient remains extremely tender, unable to tolerate any amount of sharp debridement. He does have an appointment with Dr. Goldstein in 2 weeks for consideration of an operative debridement. I encouraged the patient to stop by the pharmacy to order picker/assembler the Santyl and to contact the wound center if the cost is too high or there are any other issues. Plan will be to apply nickel-thick layer of Santyl to the wound base, cover with adaptic followed by dry gauze wrap. Change daily or more often as needed to keep clean and dry. May wash the area with antibacterial soap and water with dressing changes. Avoid submerging/soaking the wound as this can increase risk of infection. I advised him also to call and make an appointment to establish with PCP. Referral was sent to [facility] per patient request and provided him with their number here today. He continues to complain of withdrawal symptoms, I did prescribed some medications to try to help in the interim until he establishes care as listed in my note from last visit, he is advised to get these from the pharmacy. He will return to the wound healing center in 1 week. He will call with any questions or concerns.
[2023-03-22 13:19] VITALS: BP 125/84; PULSE 102; RESP 16; TEMP 35.9
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
== END 2023-03-22 23:59 | disposition home or self-care (01) ==
LOC: WC 13:15
PROVIDERS: Visit Provider Physician Assistant
DX: S61.402A Unspecified open wound of left hand, initial encounter (principal); J44.9 Chronic obstructive pulmonary disease, unspecified; F11.13 Opioid abuse with withdrawal; E11.9 Type 2 diabetes mellitus without complications; Z79.4 Long term (current) use of insulin; W01.10XA Fall on same level from slipping, tripping and stumbling with subsequent striking against unspecified object, initial encounter; M79.89 Other specified soft tissue disorders; F32.A Depression, unspecified; F41.9 Anxiety disorder, unspecified; Z79.899 Other long term (current) drug therapy; Z87.891 Personal history of nicotine dependence
CPT/HCPCS: 82962; 87070; 87075; 87077; 87186; 87205; 99213; G0463

== ENCOUNTER 2023-03-26 10:49 | Emergency (ER) | payer MEDICAID, SELFPAY ==
[2023-03-26 10:50] VITALS: BP 131/90; PULSE 100; RESP 22; TEMP 36.5; O2SAT 98; BMI 23.7
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
[2023-03-26] MEDS: 0.9% Normal Saline (1000mL) 1,000 ML 1000 ML IV (12:41)
[2023-03-26 13:06] VITALS: PULSE 97; RESP 16; O2SAT 98
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
[2023-03-26 13:38] LABS: Absolute Lymphocyte Count 1.31 X10^3/uL (0.83-4.51); Absolute Neutrophil Count 4.9 X10^3/uL (2.0-7.7); Basophil# 0.02 X10^3/uL; Basophil% 0.3 % (0-1); Eosinophil# 0.21 X10^3/uL; Hematocrit 38.1 % (40-54); Lymphocyte # 1.31 X10^3/ul (0.83-4.51); Lymphocyte % 18.6 % (19-41); Mean Corp Hgb Conc 31.5 g/dL (32-36); Mean Corpuscular Hgb 27.9 pg (27.0-32.0); Mean Corpuscular Volume 88.6 fL (80-94); Mean Platelet Vol. 10.1 fl (6.2-12.0); Monocyte# 0.63 X10^3/uL; Monocyte% 8.9 % (0-10); NRBC Flagged by Analyzer 0 % (0-5); Neutrophil # 4.85 X10^3/uL (2.7-7.7); Neutrophil % 68.8 % (47-70); Platelet Count 201 K/mm3 (150-450); RBC Distribution Width CV 13.4 % (11.6-14.6); RBC Distribution Width SD 43.7 fl (35.1-43.9); White Blood Count 7.1 K/mm3 (4.4-11.0)
[2023-03-26 13:54] LABS: Anion Gap 4 (5-15); BUN 21 mg/dL (7-18); Calcium,Total 8.6 mg/dL (8.5-10.1); Chloride 109 mmol/L (98-107); Creatinine, Serum 0.81 mg/dL (0.70-1.30); EST Glomerular Filtration Rate 105 mL/min (>60); Est Glom Filt Rate - Afr Amer 127 mL/min (>60); Estimated Creatinine Clearance 105.14 ml/min; Glucose 211 mg/dL (74-106); Sodium Level 139 mmol/L (136-145); Troponin-I HS 8 pg/mL (3.0-78.0)
[2023-03-26 14:55] VITALS: BP 157/98; PULSE 92; RESP 18; O2SAT 99
== END 2023-03-26 15:43 | disposition home or self-care (01) ==
PROVIDERS: Emergency Provider Emergency Medicine; Visit Provider Emergency Medicine
DX: S09.90XA Unspecified injury of head, initial encounter (principal); J44.9 Chronic obstructive pulmonary disease, unspecified; E11.9 Type 2 diabetes mellitus without complications; Z79.4 Long term (current) use of insulin; S00.11XA Contusion of right eyelid and periocular area, initial encounter; M79.641 Pain in right hand; V43.52XA Car driver injured in collision with other type car in traffic accident, initial encounter; R55 Syncope and collapse; R07.81 Pleurodynia; Z79.899 Other long term (current) drug therapy
CPT/HCPCS: 70450; 71046; 80048; 84484; 85025; 93005; 96360; 99285; J7030; A4216

== ENCOUNTER 2023-05-21 14:30 | Outpatient (RCR) | payer MEDICAID, SELFPAY ==
[2023-03-23 00:50] VITALS: BP 125/84; PULSE 102; RESP 16; TEMP 35.9; O2SAT 97
[2023-05-07 14:06] VITALS: BP 141/99; PULSE 113; RESP 18; TEMP 36.8
--- NOTE | 2023-05-07 15:17 | HP.PCM_ITS ---
History of Present Illness Date of Service: 05/07/23 Chief Complaint: Pain and stiffness left hand with nonviable tissue adherent to wound first web space between thumb and index finger Progress of Wound: Mr. Barron Aldana is a 57 y/o male who presents to the wound healing center today for evaluation and management of a left hand wound. The patient is hyperactive and unfocused during the visit today. He demonstrated tangential thinking and it was very difficult to elicit pertinent information. He appears to be an unreliable historian and as such history is rather unclear and was supplemented as best as possible by available records. On January 11, 2023, patient presented to the [facility] ER with a left hand injury at that time reportedly after a fall onto a fiberglass pole. His hand was noted to be wrapped in plastic followed by gauze and then a plastic bag which was by their report adhered to the injury. The wound was significantly infected. He also had a blood sugar of 776 at that time along with potassium of 6.4. Ultimately there was concern for necrotizing fasciitis so patient was transferred to [facility] for evaluation by hand surgery. Reviewed available records from [facility] in [place]. Upon arrival at [facility] on 01/11/2023 he underwent emergent surgical debridement including open release of the carpal tunnel and tenosynovial biopsy and then on 01/19/2023 had a second operation including sharp excisional debridement of skin, subcutaneous tissues, muscle at site of infection, left hand dorsal full-thickness skin graft, left wrist to repeat flexor tenosynovectomy. He was cleared for discharge from [facility] on 01/23/2023 with instructions to follow-up with orthopedics as an outpatient. [facility] given need for ongoing wound care and IV antibiotics. 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 Of significant note, patient does have a history of opioid abuse and reportedly prior to this incident she had been sober for over a decade. Understandably with this he did receive narcotic pain medications while admitted and even at discharge. When he was admitted, he was not felt to be going through any withdrawal in the stilted notes some symptoms of agitation/restlessness at that time. His tox screen in the hospital was positive for amphetamines but patient reports from using his friend's Adderall not from illicit/IV drug abuse. Additionally he was noted to have opioid-induced hyperalgesia. Furthermore patient is an uncontrolled type II diabetic who prior to this admission had self discontinued his insulin. As noted he was discharged from [facility] to [facility] in [place]. I have only a small portion of these records available for review. Notably, his medication list includes methadone which patient reports he is not currently receiving. In their note from 07/2022 the wound was noted to have eschar overlying most of the and the size was noted to be 8 x 12 cm. His left hand was noted to be swollen with nonpitting edema. The wound management was noted to be included dry dressing of barrier film and roll gauze followed by Zay wrap. He was discharged from [facility] acute care facility earlier this week. It is unclear where he is now living, he told nursing in a car. He brought with him a prescription bottle of Percocet and indicates this is the only pain medication he has been prescribed despite his opioid tolerance and having been receiving IV opioid pain medications up until his discharge. It is unclear if he is adhering to an insulin regimen. He reports that he feels he is going through opioid withdrawals and he denies having any prescribed medications from his discharge to help with this. He reports not having a primary care, though chart review indicates he has seen [facility] in the past. He now indicates a desire to follow-up with [facility] physicians based upon the recommendation of someone from the acute care facility. Patient tells me that he has been heating up Medihoney and applying this to the wound followed by gauze wrap. In addition, he reports soaking his hand and ice baths. It is not clear how frequently he is changing his dressings. [facility] Medical History (Updated 05/21/23 @ 13:[address] Nathan Goldstein MD) Anxiety Complex regional pain syndrome type 1 affecting left hand COPD (chronic obstructive pulmonary disease) Depression Diabetes Hernia Necrotizing fasciitis of hand PTSD (post-traumatic stress disorder) Tenosynovitis of wrist flexor Home Medications blood-glucose meter (OneTouch Verio Flex Meter) #1 ea 02/16/22 [Rx Last Taken Unknown] pen needle,diabetic dual safty 30 gauge x 3/16 (BD AutoShield Duo Pen Needle) #100 ea 02/16/22 [Rx Last Taken Unknown] BD AutoShield Duo Pen Needle 30 gauge x 3/16 (pen needle,diabetic dual safty) #100 ea 03/30/22 [Rx Last Taken Unknown] blood sugar diagnostic (OneTouch Verio test strips) #100 ea 03/30/22 [Rx Last Taken Unknown] insulin aspart U-100 100 unit/mL (3 mL) subcutaneous pen (Novolog FlexPen U-100 Insulin aspart) 15 unit (0.15 mL) subcut TID #40.5 mL 03/30/22 [Rx Last Taken Unknown] lancets 26 gauge (Easy Touch Safety Lancets) #200 ea 03/30/22 [Rx Last Taken Unknown] duloxetine 60 mg capsule,delayed release 60 mg PO DAILY 01/11/23 [History Last Taken Unknown] cyclobenzaprine 5 mg tablet 5 mg PO Q12H PRN muscle spasm #14 tabs 03/02/23 [Rx Last Taken Unknown] dicyclomine 10 mg capsule 10 mg PO .TID PRN abdominal pain #21 caps 03/02/23 [Rx Last Taken Unknown] hydroxyzine HCl 25 mg tablet 25 mg PO Q8H PRN anxiety, irritability, restlessness #21 tabs 03/02/23 [Rx Last Taken Unknown] collagenase clostridium histo. 250 unit/gram topical ointment (Santyl) 1 applic topical .once daily 30 days #90 grams 03/22/23 [Rx Last Taken Unknown] amitriptyline 25 mg tablet 25 mg PO QHS #30 tabs 05/07/23 [Rx Last Taken Unknown] gabapentin 100 mg capsule 100 mg PO TID #90 caps 05/07/23 [Rx Last Taken Unknown] Allergy/AdvReac Type Severity Reaction Status Date / Time amoxicillin Allergy Anaphylaxis Verified 05/07/23 14:18 Penicillins [PCN] Allergy Anaphylaxis Verified 05/07/23 14:18 aspirin [ASA] AdvReac Upset Verified 05/07/23 14:18 Stomach bee venom protein (honey bee) AdvReac Anaphylaxis Verified 05/07/23 14:18 ibuprofen AdvReac Upset Verified 05/07/23 14:18 Stomach oxycodone AdvReac Upset Verified 05/07/23 14:18 Stomach Family History Mother Diabetes Father Diabetes Cancer kidney Kidney disease Surgical History (Updated 05/21/23 @ 13:[address] 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 History of substance abuse. Eyes - Denies cataracts and glaucoma. ENT - Denies nasal congestion and sore throat. Endocrine - Denies excessive thirst and urination. Has diabetes mellitus. Skin - Denies suspicious lesions and skin cancer. Has pain and stiffness left hand involving thumb and index fingers. Musculoskeletal - Denies joint pain, joint stiffness, weakness of muscles and joints, back pain, and arthritis. Neuro - Denies headaches. Cardiovascular - Denies chest pain, fatigue, and shortness of breath with exertion. Psych - Denies anxiety and depression. Respiratory - Denies chronic cough and shortness of breath. Gastrointestinal - Denies nausea, vomiting, diarrhea, and constipation. Hematologic - Denies abnormal bruising and bleeding. Genitourinary - Denies hematuria and urinary frequency. Vital Signs Vital Signs Vital Signs: 05/07/23 14:06 Temperature 98.3 F Temperature Source Temporal Pulse Rate 113 H Respiratory Rate 18 Blood Pressure 141/99 H Blood Pressure Mean 113 Blood Pressure Source Monitor Blood Pressure Position Sitting Blood Pressure Location Left Arm Oxygen Delivery Method Room Air Physical Exam Narrative PHYSICAL EXAMINATION General - Alert and Oriented. HEENT - PERRL. EOMI. Throat is clear. Neck - Supple and nontender. No cervical adenopathy. Lungs - Clear to auscultation. Heart - Regular rate and rhythm. Abdomen - Soft and nondistended. Extremities - No axillary adenopathy. Radial pulses are palpable. Has tenderness and stiffness left hand in the area of the thenar eminence. The left thumb is adducted to his index finger. Wound on palm has adherent nonviable tissue. Tried to debride it and it was too painful. Fingers show good capillary refill. Neuro - CN II-XII grossly intact. Psych - Normal mood and affect. Debridement Note Debridement Note Wound debrided: #3 Left palm in thenar eminence area Laterality: Left Wound Grade/Stage: 4. No debridement was completed: No debridement was completed today (Has nonviable tissue adherent in his wound. Too painful to debride today.) Post-Debridement Measurements and Additional Note: Post-Debridement Measurements/Treatment DANNY - Nurse 1 - General Ulcer Assessment Start: 05/07/23 14:06 Freq: Status: Active Protocol: SHILPA Activity Type Activity Date Activity User E-sign Co-sign Detail Recorded Client Recorded Date Recorded By Document 05/07/23 14:06 [facility] Desktop 05/07/23 14:13 [facility] 05/07/23 14:06 - Today's Visit Information Type of service Follow-up Visit (Physician/SMOKING PIPES CLEANER ) Arrival Mode Ambulatory,Cane Transfer Assistance None Patient Identification Verified (Name & Yes ) Patient Requires Transmission-Based No Precautions Vital Signs Temperature (97.8 F-99.1 F) 98.3 F Temperature Source Temporal Pulse Rate (60-100) 113 H Pulse Location Monitor Respiratory Rate (12-18) 18 Respiratory rate source Observation Oxygen Delivery Method Room Air Blood Pressure (90/60-120/80) 141/99 H Blood Pressure Mean 113 Source Monitor Position Sitting Blood Pressure Location Left Arm History Since Last Visit- (Skip if this is Patient's initial visit) Have you changed medications since your No last visit? Any new allergies or adverse reactions No Had a fall/change in ADL's that may No increase risk of falls Signs or symptoms of abuse and/or No neglect since last visit Have you been in the hospital since your No last visit? Has dressing in place as prescribed No Has compression in place as prescribed N/A Has offloadiing in place as prescribed N/A Experienced any changes in pain level or No management Left Footwear Regular Shoe Right Footwear Regular Shoe Pain Scale: 0-10 Numeric Is Patient Pain Free? Yes DANNY Snow Nurse 1 - General Ulcer Measurement Start: 05/07/23 14:06 Freq: Status: Active Protocol: Activity Type Activity Date Activity User E-sign Co-sign Detail Recorded Client Recorded Date Recorded By Document 05/07/23 14:06 [facility] Desktop 05/07/23 14:13 [facility] 05/07/23 14:06 Wound Center Nurse 1 #3 L thumb/palm (thenar eminence) -Current Size (cm) - Length 3 -Current Size (cm) - Width 2.7 -Current Size (cm) - Depth 0.1 -Total Square Cm 8.1 -Date of Last Picture (Recall this 05/07/23 field) -Photo Taken Yes -Exudate Amt None Present -Texture (Soo-wound Skin Appearance) Assessed, Localized Edema -Moisture (Soo-wound Skin Appearance) Assessed -Color (Soo-wound Skin Appearance) Erythema -Temperature (Soo-wound Skin No Abnormality Appearance) (Pt Warm) -Ulcer Cleansing Soap and Water -Anesthetic Used 5% Lidocaine Gel -Wound Comment(s) scabbed - Nurse 2 - General Ulcer CM Notes Start: 05/07/23 14:06 Freq: Status: Active Protocol: Activity Type Activity Date Activity User E-sign Co-sign Detail Recorded Client Recorded Date Recorded By Document 05/07/23 14:47 Laptop 05/07/23 14:58 05/07/23 14:47 Wound Center Nurse 2 -Correct Patient No -Correct Side, Site, Position No -Correct Procedure No -Procedure Performed No -Wound/Ulcer Outcome Not Healed Pain Scale: 0-10 Numeric Is Patient Pain Free? Yes - Nurse 3 - General Ulcer D/C NN Start: 05/07/23 14:06 Freq: Status: Active Protocol: Activity Type Activity Date Activity User E-sign Co-sign Detail Recorded Client Recorded Date Recorded By Document 05/07/23 15:00 Laptop 05/07/23 15:00 05/07/23 15:00 Wound Care Center Nurse 3 #3 L thumb/palm -Ulcer Cleansing Rinsed/ Irrigated with Saline -Foul Odor after Cleansing No Pain Scale: 0-10 Numeric Is Patient Pain Free? Yes - Visit Discharge Discharge Condition Stable Ambulatory Status Ambulatory Transportation Private Auto Medication Reconcilliation completed & Yes provided to patient/care provider Clinical Summary of Care Provided Yes Notes: No dressings necessary Medical Records Data Attestation: I reviewed the patient's medical records Encourage nutritional supplementation with protein to help the healing process. His Albumin level from 01/11/23 was low at 2.3. Lab / Micro Data Attestation: I reviewed the patient's lab results. Labs: Patient has diabetes mellitus. His last HgbA1c from 03/30/22 was 13.1. For elective surgeries, the HgbA1c needs to be less than 8. Charges/Coding Visit Charges Office Visits / Consults: 01102 OV L4 New 45min (ICD-10 - S61.402A, G90.512, E11.9, F11.11, M72.6, M65.9, Z98.890) Assessment/Plan Assessment/Plan (1) Open wound of left hand: CODE(S): S61.402A - Unspecified open wound of left hand, initial encounter PLAN: wound first web space between thumb and index finger (2) Complex regional pain syndrome type 1 affecting left hand: CODE(S): G90.512 - Complex regional pain syndrome I of left upper limb (3) Diabetes: CODE(S): E11.9 - Type 2 diabetes mellitus without complications (4) History of opioid abuse: CODE(S): F11.11 - Opioid abuse, in remission (5) Necrotizing fasciitis of hand: CODE(S): M72.6 - Necrotizing fasciitis (6) Tenosynovitis of wrist flexor: CODE(S): M65.9 - Synovitis and tenosynovitis, unspecified (7) History of incision and drainage: CODE(S): Z98.890 - Other specified postprocedural states PLAN: Plan Patient remains extremely tender, unable to tolerate any amount of sharp debridement. Will try again at future visits. He states he has used MediHoney in the past. Now he is on Dakin's. He had a culture on 03/22/23. It was positive for Serratia marcescens, Staphylococcus aureus, and Enterococcus faecalis. According to previous notes, he was empirically started on Doxycycline. There were no followup notes at the Wound Center until today. Encourage nutritional supplementation with protein to help the healing process. His Albumin level from 01/11/23 was low at 2.3. He is again strongly encouraged to establish with a PCP for ongoing management of his chronic conditions, most notably his diabetes. Patient has diabetes mellitus. His last HgbA1c from 03/30/22 was 13.1. For elective surgeries, the HgbA1c needs to be less than 8. He will return to the wound healing center in 2 weeks. We discussed red flag signs/symptoms which should take him to the ER. He is to contact the wound center if he runs out of supplies. He acknowledges understanding. For his CRPS, he would benefit from some OT. He refused. With the amount of stiffness in his left hand, don't anticipate much improvement. But some improvement in his range of motion is better than none. Will order script for Neurontin to help with his pain (sounds neuropathic in nature). He states he was on Cymbalta but hasn't taken it recently due to cost issues. Low dose antidepressants can help improve his sleep patterns which can improve his CRPS. Lack of sleep only aggravates the pain syndrome. To minimize vascular spasm in his hand, Procardia XL is useful. The patient does not have as BP cuff at home. I only prescribe if they can take their BP. If the systolic BP is < 100 mmHg then the patient would not take the medication that day. He may benefit from Pain Management for possible injections. Will reassess at his next visit.
[2023-05-21 14:23] VITALS: BP 127/75; PULSE 98; RESP 16; TEMP 35.7
--- NOTE | 2023-05-21 14:52 | PN.PCM_ITS ---
History of Present Illness Date of Service: 05/21/23 Chief Complaint: Pain and stiffness left hand with nonviable tissue adherent to wound first web space between thumb and index finger History of Wound: 58 year old man sustained a severe diabetic necrotizing infection left hand in December,. Progress of Wound: 58 y/o male who presents today with pain in his left hand. He has been using Tea Tree oil to the scars and small area of nonviable tissue adherent to the scar on the palmar side first web space. He states he has been removing it slowly. He states he is trying to do passive range of motion as best he can with pain as a limiting factor. When he tries to do something, his left hand will swell and throb and sometimes changes color. He states the Gabapentin has helped a little with the neuropathy. He hasn't noticed much improvement in his sleep with the Elavil. He sustained a severe diabetic necrotizing infection left hand in December,. On January 11, 2023, patient presented to the [facility] ER with a left hand injury at that time reportedly after a fall onto a fiberglass pole. His hand was noted to be wrapped in plastic followed by gauze and then a plastic bag which was by their report adhered to the injury. The wound was significantly infected. He also had a blood sugar of 776 at that time along with potassium of 6.4. Ultimately there was concern for necrotizing fasciitis so patient was transferred to [facility] for evaluation by hand surgery. Reviewed available records from [facility] in [place]. Upon arrival at [facility] on 01/11/2023 he underwent emergent surgical debridement including open release of the carpal tunnel and tenosynovial biopsy and then on 01/19/2023 had a second operation including sharp excisional debridement of skin, subcutaneous tissues, muscle at site of infection, left hand dorsal full-thickness skin graft, left wrist to repeat flexor tenosynovectomy. He was cleared for discharge from [facility] on 01/23/2023 with instructions to follow-up with orthopedics as an outpatient. [facility] given need for ongoing wound care and IV antibiotics. 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 Of significant note, patient does have a history of opioid abuse and reportedly prior to this incident she had been sober for over a decade. Understandably with this he did receive narcotic pain medications while admitted and even at discharge. When he was admitted, he was not felt to be going through any withdrawal in the stilted notes some symptoms of agitation/restlessness at that time. His tox screen in the hospital was positive for amphetamines but patient reports from using his friend's Adderall not from illicit/IV drug abuse. Additionally he was noted to have opioid-induced hyperalgesia. Furthermore patient is an uncontrolled type II diabetic who prior to this admission had self discontinued his insulin. As noted he was discharged from [facility] to [facility] in [place]. I have only a small portion of these records available for review. Notably, his medication list includes methadone which patient reports he is not currently receiving. In their note from 07/2022 the wound was noted to have eschar overlying most of the and the size was noted to be 8 x 12 cm. His left hand was noted to be swollen with nonpitting edema. The wound management was noted to be included dry dressing of barrier film and roll gauze followed by Zay wrap. He was discharged from [facility] acute care facility. He states he has transportation issues which is why he never went to OT after his surgeries. At his last visit, we gave him phone number for [facility] to help manage his diabetes. He was traveling and didn't make the call yet. Today he denies fever. His appetite is ok. The wound is almost healed. He has been slowly removing the nonviable tissue that is adherent. Objective Data Objective Data Vital Signs: Vital Signs Temp Pulse Resp BP Pulse Ox O2 Del Method 96.3 F L 98 16 127/75 H 97 Room Air 05/21/23 14:23 05/21/23 14:23 05/21/23 14:23 05/21/23 14:23 03/23/23 00:50 05/21/23 14:23 Oxygen Delivery Method Room Air Encourage nutritional supplementation with protein to help the healing process. His Albumin level from 01/11/23 was low at 2.3. Lab / Micro Data Attestation: I reviewed the patient's lab results. Lab results narrative: Patient has diabetes mellitus. His last HgbA1c from 03/30/22 was 13.1. For elective surgeries, the HgbA1c needs to be less than 8. Charges/Coding Visit Charges Office Visits / Consults: 34910 OV L3 Est 20min (ICD-10 - S61.402A, G90.512, E11.9, F11.11, M72.6, M65.9, Z98.890) Physical Exam Narrative PHYSICAL EXAMINATION General - Alert and Oriented. HEENT - PERRL. EOMI. Throat is clear. Neck - Supple and nontender. No cervical adenopathy. Lungs - Clear to auscultation. Heart - Regular rate and rhythm. Abdomen - Soft and nondistended. Extremities - No axillary adenopathy. Radial pulses are palpable. Has tenderness and stiffness left hand in the area of the thenar eminence. The left thumb is adducted to his index finger. Wound on palm has adherent nonviable tissue. Tried to debride it and it was too painful. Fingers show good capillary refill. He has removed some of the nonviable tissue himself. Underneath there appears to be healed tissue. Neuro - CN II-XII grossly intact. Psych - Normal mood and affect. Debridement Note Debridement Note Wound debrided: #3 Left palm in thenar eminence area Laterality: Left Wound Grade/Stage: 4. No debridement was completed: No debridement was completed today (Has nonviable tissue adherent in his wound. Too painful to debride today.) Post-Debridement Measurements and Additional Note: Post-Debridement Measurements/Treatment WC - Nurse 1 - General Ulcer Assessment Start: 05/07/23 14:06 Freq: Status: Active Protocol: [email or web address].[email or web address] Activity Type Activity Date Activity User E-sign Co-sign Detail Recorded Client Recorded Date Recorded By Document 05/07/23 14:06 [facility] Desktop 05/07/23 14:13 [facility] Document 05/21/23 14:23 [facility] Desktop 05/21/23 14:25 [facility] 05/07/23 05/21/23 14:06 14:23 - Today's Visit Information Type of service Follow-up Visit Follow-up Visit (Physician/ASSOCIATE PRODUCER (Physician/ASSOCIATE PRODUCER ) ) Arrival Mode Ambulatory,Cane Ambulatory Transfer Assistance None None Patient Identification Verified (Name & Yes Yes ) Patient Requires Transmission-Based No No Precautions Vital Signs Temperature (97.8 F-99.1 F) 98.3 F 96.3 F L Temperature Source Temporal Temporal Pulse Rate (60-100) 113 H 98 Pulse Location Monitor Monitor Respiratory Rate (12-18) 18 16 Respiratory rate source Observation Observation Oxygen Delivery Method Room Air Room Air Blood Pressure (90/60-120/80) 141/99 H 127/75 H Blood Pressure Mean (mm Hg) 113 92 Source Monitor Monitor Position Sitting Sitting Blood Pressure Location Left Arm Right Arm History Since Last Visit- (Skip if this is Patient's initial visit) Have you changed medications since your No No last visit? Any new allergies or adverse reactions No No Had a fall/change in ADL's that may No No increase risk of falls Signs or symptoms of abuse and/or No No neglect since last visit Have you been in the hospital since your No No last visit? Has dressing in place as prescribed No No Has compression in place as prescribed N/A N/A Has offloadiing in place as prescribed N/A N/A Experienced any changes in pain level or No No management Left Footwear Regular Shoe Regular Shoe Right Footwear Regular Shoe Regular Shoe Pain Scale: 0-10 Numeric Is Patient Pain Free? Yes Yes WC - Nurse 1 - General Ulcer Measurement Start: 05/07/23 14:06 Freq: Status: Active Protocol: Activity Type Activity Date Activity User E-sign Co-sign Detail Recorded Client Recorded Date Recorded By Document 05/07/23 14:06 [facility] Desktop 05/07/23 14:13 [facility] Document 05/21/23 14:23 [facility] Desktop 05/21/23 14:25 [facility] 05/07/23 05/21/23 14:06 14:23 Wound Center Nurse 1 #3 L thumb/palm -Combined with other wound No -Current Size (cm) - Length 3 0.1 -Current Size (cm) - Width 2.7 0.1 -Current Size (cm) - Depth 0.1 0.1 -Total Square Cm 8.1 0.01 -Date of Last Picture (Recall this 05/07/23 05/21/23 field) -Photo Taken Yes Yes -Epithelialization Large 67-100% -Exudate Amt None Present None Present -Slough/Fibrin Yes -Necrosis Amt Small (1-33%) -Necrotic Tissue Type Eschar -Texture (Soo-wound Skin Appearance) Assessed, Assessed, Localized Edema Fluctuance, Scarring -Moisture (Soo-wound Skin Appearance) Assessed Assessed,Dry/ Scaly -Color (Soo-wound Skin Appearance) Erythema Assessed -Temperature (Soo-wound Skin No Abnormality No Abnormality Appearance) (Pt Warm) (Pt Warm) -Tenderness on Palpation (Soo-wound No Skin Appearance) -Ulcer Cleansing Soap and Water Rinsed/ Irrigated with Saline -Foul Odor after Cleansing No -Anesthetic Used 5% Lidocaine 5% Lidocaine Gel Gel -Wound Comment(s) scabbed - Nurse 2 - General Ulcer CM Notes Start: 05/07/23 14:06 Freq: Status: Active Protocol: Activity Type Activity Date Activity User E-sign Co-sign Detail Recorded Client Recorded Date Recorded By Document 05/07/23 14:47 Laptop 05/07/23 14:58 Document 05/21/23 14:30 Laptop 05/21/23 14:38 05/07/23 05/21/23 14:47 14:30 Wound Center Nurse 2 #3 L thumb/palm -Correct Patient No No -Correct Side, Site, Position No No -Correct Procedure No No -Procedure Performed No No -Wound/Ulcer Outcome Not Healed Not Healed Pain Scale: 0-10 Numeric Is Patient Pain Free? Yes Yes - Nurse 3 - General Ulcer D/C NN Start: 05/07/23 14:06 Freq: Status: Active Protocol: Activity Type Activity Date Activity User E-sign Co-sign Detail Recorded Client Recorded Date Recorded By Document 05/07/23 15:00 Laptop 05/07/23 15:00 Document 05/21/23 14:41 Laptop 05/21/23 14:42 05/07/23 05/21/23 15:00 14:41 Wound Care Center Nurse 3 #3 L thumb/palm -Ulcer Cleansing Rinsed/ Irrigated with Saline -Foul Odor after Cleansing No -Primary Dressing Covered/Secured with Dry Gauze Pain Scale: 0-10 Numeric Is Patient Pain Free? Yes Yes - Visit Discharge Discharge Condition Stable Stable Ambulatory Status Ambulatory Ambulatory Transportation Private Auto Private Auto Medication Reconcilliation completed & Yes Yes provided to patient/care provider Clinical Summary of Care Provided Yes Yes Notes: No dressings necessary Assessment/Plan Assessment/Plan (1) Open wound of left hand: CODE(S): S61.402A - Unspecified open wound of left hand, initial encounter PLAN: wound first web space between thumb and index finger (2) Complex regional pain syndrome type 1 affecting left hand: CODE(S): G90.512 - Complex regional pain syndrome I of left upper limb (3) Diabetes: CODE(S): E11.9 - Type 2 diabetes mellitus without complications (4) History of opioid abuse: CODE(S): F11.11 - Opioid abuse, in remission (5) Necrotizing fasciitis of hand: CODE(S): M72.6 - Necrotizing fasciitis (6) Tenosynovitis of wrist flexor: CODE(S): M65.9 - Synovitis and tenosynovitis, unspecified (7) History of incision and drainage: CODE(S): Z98.890 - Other specified postprocedural states PLAN: Plan Patient remains extremely tender, unable to tolerate any amount of sharp debridement. Will try again at future visits. He states he has used MediHoney in the past. Now he is using Tea Tree oil. He has removed some of the nonviable tissue himself. Underneath the tissue appears healed. He will continue his passive range of motion to help minimize any further stiffness than what he already has. He states he has a transportation problem which is why he hasn't gone to OT. He had a culture on 03/22/23. It was positive for Serratia marcescens, Staphylococcus aureus, and Enterococcus faecalis. According to previous notes, he was empirically started on Doxycycline. Encourage nutritional supplementation with protein to help the healing process. His Albumin level from 01/11/23 was low at 2.3. He is again strongly encouraged to establish with a PCP for ongoing management of his chronic conditions, most notably his diabetes. Patient has diabetes mellitus. His last HgbA1c from 03/30/22 was 13.1. For elective surgeries, the HgbA1c needs to be less than 8. He will return to the wound healing center in 2 weeks. We discussed red flag signs/symptoms which should take him to the ER. He is to contact the wound center if he runs out of supplies. He acknowledges understanding. For his CRPS, he would benefit from some OT. He refused. With the amount of stiffness in his left hand, don't anticipate much improvement. But some improvement in his range of motion is better than none. He states the Neurontin has been helpful with his neuropathic pain. Will increase the dose and send in a script. He states he was on Cymbalta but hasn't taken it recently due to cost issues. Low dose antidepressants can help improve his sleep patterns which can improve his CRPS. Lack of sleep only aggravates the pain syndrome. He has started the Elavil. Hasn't noticed any difference in his sleep patterns yet. To minimize vascular spasm in his hand, Procardia XL is useful. The patient does not have as BP cuff at home. I only prescribe if they can take their BP. If the systolic BP is < 100 mmHg then the patient would not take the medication that day. He may benefit from Pain Management for possible injections. When he tries to use his left hand, he gets increased swelling which increases the pain. Recommend an zay wrap around his palm and wrist when he is active to try and minimize swelling. Followup 2 weeks.
== END 2023-05-23 23:59 | disposition home or self-care (01) ==
LOC: WC 14:30
PROVIDERS: Visit Provider Surgery
DX: S61.402A Unspecified open wound of left hand, initial encounter (principal); J44.9 Chronic obstructive pulmonary disease, unspecified; F11.11 Opioid abuse, in remission; E11.40 Type 2 diabetes mellitus with diabetic neuropathy, unspecified; Z79.4 Long term (current) use of insulin; G90.512 Complex regional pain syndrome I of left upper limb; R60.0 Localized edema; Z59.02 Unsheltered homelessness; Z79.899 Other long term (current) drug therapy; M65.9 Synovitis and tenosynovitis, unspecified; Z98.890 Other specified postprocedural states; M25.642 Stiffness of left hand, not elsewhere classified
CPT/HCPCS: 99213; G0463

== ENCOUNTER 2024-07-28 15:58 | Inpatient (IN) | payer MEDICAID, SELFPAY ==
[2024-07-28] VITALS (8 sets, daily range): BP systolic 110–138; BP diastolic 73–95; PULSE 81–108; RESP 13–19; TEMP 36.4–36.8; O2SAT 93–99; BMI 22.8; BMI 23.5
--- NOTE | 2024-07-28 16:33 | EDS_ITS ---
HPI <JOSE MIGUEL Alberto - Last Filed: 07/28/24 18:48> History of Present Illness Chief Complaint: Lower Extremity Injury Narrative Narrative: 51-year-old male injured his right foot 1 month ago. He was restoring his truck and dropped a 120 pound beam onto the foot. He states it split his great toe like a grape and he has had an open wound since then but was too stubborn to be seen. He has been changing the bandages but it has become progressively more painful and odorous and he is concerned there is an infection. States he had a fever last week but none recently. He is diabetic and takes no medications. [facility] <JOSE MIGUEL Alberto - Last Filed: 07/28/24 18:48> [facility] Medical History (Updated 07/28/24 @ 18:48 by JOSE MIGUEL Alberto) Complex regional pain syndrome type 1 affecting left hand Tenosynovitis of wrist flexor Necrotizing fasciitis of hand COPD (chronic obstructive pulmonary disease) Hernia Depression Anxiety PTSD (post-traumatic stress disorder) Diabetes Home Medications ?Medication ?Instructions ?Recorded ?Last Taken ?Type blood-glucose meter (OneTouch #1 ea 02/16/22 Unknown R x Verio Flex Meter) pen needle,diabetic dual safty 30 #100 ea 02/16/22 Unk nown Rx gauge x 3/16 (BD AutoShield Duo Pen Needle) BD AutoShield Duo Pen Needle 30 #100 ea 03/30/22 Unkno wn Rx gauge x 3/16 (pen needle,diabetic dual safty) blood sugar diagnostic (OneTouch #100 ea 03/30/22 Unkn own Rx Verio test strips) lancets 26 gauge (Easy Touch #200 ea 03/30/22 Unknown Rx Safety Lancets) hydroxyzine HCl 25 mg tablet 25 mg PO Q8H PRN anxiety, 03/02/23 07/27/24 Rx irritability, restlessness #21 tabs Allergy/AdvReac Type Severity Reaction Status Date / Time cefepime (From Maxipime) Allergy Severe Chest Verified 07/28/24 18:38 tightness amoxicillin Allergy Anaphylaxis Verified 05/07/23 14:18 Penicillins (PCN) Allergy Anaphylaxis Verified 05/07/23 14:18 aspirin (ASA) AdvReac Upset Verified 05/07/23 14:18 Stomach bee venom protein (honey bee) AdvReac Anaphylaxis Verified 05/07/23 14:18 ibuprofen AdvReac Upset Verified 05/07/23 14:18 Stomach oxycodone AdvReac Upset Verified 05/07/23 14:18 Stomach Family History Mother Diabetes Father Diabetes Cancer kidney Kidney disease Surgical History (Updated 05/21/23 @ 13:[address] 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 GI: Negative for vomiting. Skin: Positive for wound. EXAM <JOSE MIGUEL Alberto - Last Filed: 07/28/24 18:48> Physical Exam Narrative Exam Narrative: CONST: Patient sitting in no acute distress. EYES: Normal inspection. NECK: Normal inspection. RESP: No respiratory distress, CTAB. CVS: Regular rate and rhythm, no murmur, no gallop. EXTREMITIES: Enlarged right great toe with complete nail avulsion with soft tissue and pus protruding from the area where the nail was. Malodorous. There is a healing area of split skin along the plantar great toe. There is no overlying erythema or lymphangitic streaking. Full range of motion, 2+ DP pulse. NEURO: Alert and answering questions appropriately. PSYCH: Normal affect. Const Vital Signs: 07/28/24 15:59 07/28/24 16:58 07/28/24 17:58 Temperature 97.6 F L Temperature Source Temporal Pulse Rate 105 H 101 H 105 H Respiratory Rate 19 H 18 13 Blood Pressure 125/76 H 110/88 H 115/82 H Blood Pressure Mean 92 95 93 Pulse Ox 98 95 99 Oxygen Delivery Method Room Air 07/28/24 18:06 Temperature 98.2 F Temperature Source Temporal Pulse Rate 108 H Respiratory Rate 19 H Blood Pressure 115/82 H Blood Pressure Mean 93 Pulse Ox 97 Oxygen Delivery Method Room Air <Dr. Tevin Murdock DO - Last Filed: 07/28/24 18:06> Physical Exam Const Vital Signs: 07/28/24 15:59 07/28/24 16:58 07/28/24 17:58 Temperature 97.6 F L Temperature Source Temporal Pulse Rate 105 H 101 H 105 H Respiratory Rate 19 H 18 13 Blood Pressure 125/76 H 110/88 H 115/82 H Blood Pressure Mean 92 95 93 Pulse Ox 98 95 99 Oxygen Delivery Method Room Air 07/28/24 18:06 Temperature 98.2 F Temperature Source Temporal Pulse Rate 108 H Respiratory Rate 19 H Blood Pressure 115/82 H Blood Pressure Mean 93 Pulse Ox 97 Oxygen Delivery Method Room Air MDM <JOSE MIGUEL Alberto - Last Filed: 07/28/24 18:48> MDM MDM Narrative Medical decision making narrative: Consults: Podiatry, hospitalist Differential: Wound, cellulitis, abscess, open fracture 59-year-old male had a crush injury of his right great toe 1 month ago causing a nail avulsion and open wound which has been gradually worsening. The toe is edematous and there is soft tissue and pus protruding from where the nail was avulsed. Neurovascularly intact. WBC is 7.6. Glucose is 271 with normal CO2 and anion gap. Lactic 2.8. Blood cultures drawn. Patient has a penicillin allergy but I ordered IV cefepime since it has low cross-reactivity; however, he developed chest tightness and nausea and vomiting so was immediately discontinued and he was given Zofran and Benadryl with improvement. In discussion with the tie tape machine operator Dr. Garner I will I will order IV vancomycin and Cipro. He states the toe will need a partial amputation. X-ray read is cellulitis of the first digit with osteomyelitis, however with this history I think it is more likely a nonhealing open fracture. I discussed the case with the hospitalist for admission. ED attending note: I evaluated the patient in conjunction with the GREG. I agree with his/her statements and above findings. I have personally performed a face to face assessment of the patient and have reviewed the GREG Note. I performed a subs tantive portion of the visit including all aspects of the following. I personally saw the patient performed chart review, physical exam, reviewed labs, imaging (if obtained), and formulated a treatment and management plan. History as above: Exam: Left first digit diffusely swollen, erythematous no obvious purulent drainage, severely tender to palpation. Left lower extremity neurovascularly intact. Compartments are soft. This note was generated with [employer] dictation software. It may contain incorrect words, spelling, and punctuation that were not noted in review of the chart prior to signing. Lab Data Attestation: I reviewed the patient's lab results. Labs: Laboratory Results - last 24 hr 07/28/24 16:54 WBC 7.6 RBC 4.92 Hgb 14.6 Hct 42.8 MCV 87.0 MCH 29.7 MCHC 34.1 RDW Std Deviation 38.9 RDW Coeff of Mariza 12.2 Plt Count 213 MPV 9.5 Immature Gran % (Auto) 0.700 Neut % (Auto) 66.7 Lymph % (Auto) 23.4 [place] % (Auto) 7.0 Eos % (Auto) 1.5 Baso % (Auto) 0.7 Absolute Neuts (auto) 5.0 Absolute Lymphs (auto) 1.77 Nucleated RBC % 0 ESR 13 Sodium 132 L Potassium 5.2 H Chloride 99 Carbon Dioxide 22.0 Anion Gap 12 BUN 25 H Creatinine 0.68 L Estim Creat Clear Calc 121.09 Est GFR (MDRD) Non-Af 108 BUN/Creatinine Ratio 36.1 H Glucose 271 H Lactic Acid 2.8 H* Calcium 9.8 C-React Prot Ext Range 5.16 H Radiography Diagnostic Testing: Clinical Impression(s) from Imaging Studies Foot X-Ray 07/28/24 16:48 IMPRESSION: Suspect cellulitis of the 1st digit with osteomyelitis of the 1st distal phalanx. Reading Location: [id number] ED attending interpretation of right foot shows comminuted fracture of the first distal phalanx. <Dr. Tevin Murdock, DO - Last Filed: 07/28/24 18:06> [facility] Narrative Medical decision making narrative: ED attending note: I evaluated the patient in conjunction with the GREG. I agree with his/her statements and above findings. I have personally performed a face to face assessment of the patient and have reviewed the GREG Note. I performed a substantive portion of the visit including all aspects of the following. I personally saw the patient performed chart review, physical exam, reviewed labs, imaging (if obtained), and formulated a treatment and management plan. History as above: Exam: Left first digit diffusely swollen, erythematous no obvious purulent drainage, severely tender to palpation. Left lower extremity neurovascularly intact. Compartments are soft. This note was generated with [employer] dictation software. It may contain incorrect words, spelling, and punctuation that were not noted in review of the chart prior to signing. Lab Data Labs: Laboratory Results - last 24 hr 07/28/24 16:54 WBC 7.6 RBC 4.92 Hgb 14.6 Hct 42.8 MCV 87.0 MCH 29.7 MCHC 34.1 RDW Std Deviation 38.9 RDW Coeff of Mariza 12.2 Plt Count 213 MPV 9.5 Immature Gran % (Auto) 0.700 Neut % (Auto) 66.7 Lymph % (Auto) 23.4 [place] % (Auto) 7.0 Eos % (Auto) 1.5 Baso % (Auto) 0.7 Absolute Neuts (auto) 5.0 Absolute Lymphs (auto) 1.77 Nucleated RBC % 0 ESR 13 Sodium 132 L Potassium 5.2 H Chloride 99 Carbon Dioxide 22.0 Anion Gap 12 BUN 25 H Creatinine 0.68 L Estim Creat Clear Calc 121.09 Est GFR (MDRD) Non-Af 108 BUN/Creatinine Ratio 36.1 H Glucose 271 H Lactic Acid 2.8 H* Calcium 9.8 C-React Prot Ext Range 5.16 H Radiography Diagnostic Testing: Clinical Impression(s) from Imaging Studies Foot X-Ray 07/28/24 16:48 IMPRESSION: Suspect cellulitis of the 1st digit with osteomyelitis of the 1st distal phalanx. Reading Location: [id number] Discharge Plan Triage Chief Complaint: Lower Extremity Injury ED Midlevel Provider: Nancie Mcqueen ED Provider: Tevin Murdock Dx/Rx/DC Orders Clinical Impression: Open wound of right great toe with damage to nail, Diabetes mellitus with hyperglycemia, Abscess of great toe, right Prescriptions: No Action (DME) lancets [Easy Touch Safety Lancets] 26 gauge misc See Rx Instructions .Route Qty: 200 5RF Rx Instructions: 4x/day (DME) OneTouch Verio test strips Strip See Rx Instructions .Route Qty: 100 5RF Rx Instructions: BID (DME) BD AutoShield Duo Pen Needle 30 gauge x 3/16 needle See Rx Instructions .Route Qty: 100 5RF Rx Instructions: 4x/day hydroxyzine HCl 25 mg tablet 25 mg PO Q8H PRN (Reason: anxiety, irritability, restlessness) Qty: 21 0RF Rx Instructions: Take only as needed for anxiety, irritability, and restlessness. (DME) BD AutoShield Duo Pen Needle 30 gauge x 3/16 needle See Rx Instructions .Route Qty: 100 5RF Rx Instructions: BID (DME) blood-glucose meter [OneTouch Verio Flex meter] [facility] See Rx Instructions .Route Qty: 1 0RF Rx Instructions: As directed Primary Care Provider: Care Physician,No Primary Referrals: Care Physician,No Primary [Primary Care Provider] - Print Language: Faroese
--- NOTE | 2024-07-28 16:48 | RAD_ITS ---
EXAM: Left foot CLINICAL HISTORY: Foot pain COMPARISON: None TECHNIQUE: Three views FINDINGS: No acute fracture or dislocation. Small plantar and posterior calcaneal enthesophytes. Soft tissue swelling of the 1st digit suggestive of cellulitis. Destruction of the head and neck of the 1st distal phalanx worrisome for osteomyelitis. RAD/Foot min 3 Views IMPRESSION: Suspect cellulitis of the 1st digit with osteomyelitis of the 1st distal phalan x. Reading Location: [id number]
[2024-07-28 17:15] LABS: Absolute Lymphocyte Count 1.77 X10^3/uL (0.83-4.51); Basophil# 0.05 X10^3/uL; Basophil% 0.7 % (0-1); Eosinophil# 0.11 X10^3/uL; Eosinophils% 1.5 % (0-5); Hematocrit 42.8 % (40-54); Hemoglobin 14.6 g/dL (13.0-16.5); Lymphocyte # 1.77 X10^3/ul (0.83-4.51); Lymphocyte % 23.4 % (19-41); Mean Corp Hgb Conc 34.1 g/dL (32-36); Mean Corpuscular Hgb 29.7 pg (27.0-32.0); Mean Platelet Vol. 9.5 fl (6.2-12.0); Monocyte# 0.53 X10^3/uL; NRBC Flagged by Analyzer 0 % (0-5); Neutrophil # 5.04 X10^3/uL (2.7-7.7); Neutrophil % 66.7 % (47-70); Platelet Count 213 K/mm3 (150-450); RBC Distribution Width CV 12.2 % (11.6-14.6); RBC Distribution Width SD 38.9 fl (35.1-43.9); Red Blood Count 4.92 M/mm3 (4.6-6.2); White Blood Count 7.6 K/mm3 (4.4-11.0)
[2024-07-28 17:17] LABS: Erythrocyte Sedimentation Rate 13 mm/hr (0-20)
[2024-07-28 17:27] LABS: Anion Gap 12 (5-15); BUN 25 mg/dL (4-19); BUN/Creat Ratio 36.1 RATIO (10-20); CRP 5.16 mg/L (0.0-3.0); Calcium,Total 9.8 mg/dL (7.6-11.0); Chloride 99 mmol/L (98-108); Creatinine, Serum 0.68 mg/dL (0.70-1.20); EST Glomerular Filtration Rate 108 (>60); Estimated Creatinine Clearance 121.09 ml/min (50-250); Glucose 271 mg/dL (70-99); Potassium 5.2 mmol/L (3.3-5.1); Sodium Level 132 mmol/L (133-145)
[2024-07-28] MEDS: Cefepime HCl 2 GM in 0.9% Normal Saline (100mL MB+) 100 ML IV (17:51)
[2024-07-28] MEDS: Ketorolac 15 MG/ML Vial IV (17:53)
[2024-07-28] MEDS: 0.9% Normal Saline (1000mL) 1,000 ML 999 ML IV (17:55)
[2024-07-28 18:04] LABS: Lactic Acid 2.8 mmol/L (0.0-2.0)
[2024-07-28] MEDS: Ondansetron 4 MG/2 ML Vial IV (18:17)
--- NOTE | 2024-07-28 18:23 | ED.RN ---
once maxipime was started pt began vomiting. this rn notifies PA and obtains dose of zofran iv. when this rn goes back in to check on patient after call light was turned on and pt noted to be very red, complaining of chest pain, a rash to body. maxipime discontinued and PA and MD notified with new verbal orders for iv benadryl 50 mg and pepcid 20 mg iv. rn puts orders in computer. pharmacy to send pepcid. will continue to monitor patient. if no improvement from iv benadryl in 15 mins, IM epinephine to be given by verbal order of Dr. Murdock
[2024-07-28] MEDS: DiphenhydrAMINE 50 MG/ML Syringe IV (18:28)
[2024-07-28] MEDS: Famotidine 200 MG/20 ML MDV 20 MG in 0.9% Normal Saline (Pres. free 8 ML 300 MG IV (18:39)
--- NOTE | 2024-07-28 18:50 | PCM.CONS.GEN ---
Assessment & Plan Assessment/Plan (1) Unspecified open wound of left great toe with damage to nail, initial encounter: (2) Osteomyelitis, unspecified: (3) Cellulitis of left toe: (4) Diabetes mellitus with diabetic polyneuropathy: (5) Type 2 diabetes mellitus with foot ulcer: (6) Displaced unspecified fracture of left lesser toe(s), initial encounter for closed fracture: PLAN: Plan Patient seen and evaluated Left foot: There is significant edema of the hallux with absence/destruction of the nail plate with some purulence emerging from the nailbed dorsally. There is mild erythema dorsally about the digit with dried crusted blood about the plantar aspect and distal tuft. Plantar skin of the hallux appears healthy and viable. There is some malodor to the dorsal aspect at area of concern. No palpable fluctuance/bogginess, no visible abscess formation. WBC 7.6, ESR 13, CRP 5.16, lactic acid 2.8, glucose 271 Last recorded A1c 13.1 on 03/30/2022. Recommend updating HgbA1c Currently on IV doxycycline/ciprofloxacin due to allergies to PCN and cephalosporins Radiograph obtained of the left foot on 07/28/24 demonstrating soft tissue edema of the first digit suggestive of cellulitis. Destruction of the head and neck of the distal phalanx worrisome for osteomyelitis. I reviewed his radiographs of the left foot. There is soft tissue edema about the left hallux. I do feel there is a crush fracture of the distal phalanx but with addition of nailbed laceration and damage osteomyelitis is highly likely given 4 weeks of open wound. Recommend MRI of the left hallux for further evaluation. I did discuss at bedside this evening with the patient the likelihood of undergoing a partial amputation of the left hallux. He is understanding of this and does not object to the amputation. I discussed with him that we will discuss further following his MRI. Medicine team following for medical management of his diabetes, they are greatly appreciated and their assistance Infectious disease consulted for antibiotic management Wound nurse consulted for assistance in dressing changes. Patient to remain weightbearing to the left heel in surgical shoe for transfers/bathroom privileges. Will continue to follow while in house with likely amputation of the distal phalanx of the hallux to occur later this week. Jr. Cathy Cronin.P.M. [facility] [phone] HPI Consult Data Date of Consult: 07/28/24 HPI Narrative Reason for Consultation: Left hallux ulceration/fracture. HPI Narrative: BARRON PALM, is a 59 M who presents to [facility] ED for concern of infection in his left great toe. Patient reports he was restoring his truck 1 month ago and during the process dropped a 120 pound beam onto his foot. He was not wearing steel toes at the time. He reports his toe was crushed and split like a grape. States that he has not been following anyone or seek treatment as he is too stubborn to be seen. Patient is a type II diabetic but does not check blood sugars and last reported A1c was 13.1 on 03/30/2022. He denies taking medications for his diabetes. States he has been changing his bandages at home but the toe has become more painful and more malodorous prompting visit to the ED for further evaluation. [facility] Medical History (Updated 07/28/24 @ 19:[address] Barron Garner, DPM) Complex regional pain syndrome type 1 affecting left hand Tenosynovitis of wrist flexor Necrotizing fasciitis of hand COPD (chronic obstructive pulmonary disease) Hernia Depression Anxiety PTSD (post-traumatic stress disorder) Diabetes Home Medications ?Medication ?Instructions ?Recorded ?Last Taken ?Type blood-glucose meter (OneTouch #1 ea 02/16/22 Unknown Rx Verio Flex Meter) pen needle,diabetic dual safty 30 #100 ea 02/16/22 Unknown Rx gauge x 3/16 (BD AutoShield Duo Pen Needle) BD AutoShield Duo Pen Needle 30 #100 ea 03/30/22 Unknown Rx gauge x 3/16 (pen needle,diabetic dual safty) blood sugar diagnostic (OneTouch #100 ea 03/30/22 Unknown Rx Verio test strips) lancets 26 gauge (Easy Touch #200 ea 03/30/22 Unknown Rx Safety Lancets) hydroxyzine HCl 25 mg tablet 25 mg PO Q8H PRN anxiety, 03/02/23 07/27/24 Rx irritability, restlessness #21 tabs Allergy/AdvReac Type Severity Reaction Status Date / Time cefepime (From Maxipime) Allergy Severe Chest Verified 07/28/24 18:38 tightness amoxicillin Allergy Anaphylaxis Verified 05/07/23 14:18 Penicillins (PCN) Allergy Anaphylaxis Verified 05/07/23 14:18 aspirin (ASA) AdvReac Upset Verified 05/07/23 14:18 Stomach bee venom protein (honey bee) AdvReac Anaphylaxis Verified 05/07/23 14:18 ibuprofen AdvReac Upset Verified 05/07/23 14:18 Stomach oxycodone AdvReac Upset Verified 05/07/23 14:18 Stomach Family History Mother Diabetes Father Diabetes Cancer kidney Kidney disease Surgical History (Updated 05/21/23 @ 13:[address] 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 what type of physical activity do you participate in: none do you feel safe at home: Yes ROS Constitutional Constitutional: Denies chills, fever(s) or malaise Eyes Eyes: Denies change in vision, diplopia or loss of vision ENT HEENT: Denies dysphagia, nasal congestion, rhinorrhea or sore throat Cardiovascular Cardiovascular: Denies chest pain, claudication or palpitations Respiratory/Chest Respiratory/Chest: Denies dyspnea, shortness of breath at rest or wheezing Gastrointestinal Gastrointestinal: Denies abdominal pain, constipation, diarrhea, nausea or vomiting Genitourinary Genitourinary: Denies dysuria, urinary frequency, urinary hesitancy or urinary urgency Musculoskeletal Musculoskeletal: Denies joint pain, joint stiffness or joint swelling Integumentary Integumentary: Denies jaundice, pruritus or rash Neurologic Neurologic: Denies dizziness, numbness or seizures Psychiatric Psychiatric: Denies anxiety or depression Endocrine Endocrinology: Denies cold intolerance, heat intolerance, polydipsia, polyphagia or polyuria Hematologic/Lymphatic Hematologic/Lymphatic: Denies easy bleeding or easy bruising Physical Exam Const alert, oriented x3 and no apparent distress General Appearance: cooperative HEENT normocephalic Eyes General Eye: normal appearance of both eyes Neck General: normal visual inspection Lymph Lymphatic: no lymphadenopathy noted and no lymphedema noted Resp normal respiratory effort Cardio regular rate and regular rhythm Extremity no calf tenderness Extremity Narrative: Left lower extremity: Vascular: DP and PT pulses palpable. CFT less than 4 seconds to the digits. Normal temperature gradient. Hair growth is diminished to digits. Neurologic: Gross sensation intact. Protective sensation diminished to the foot consistent with diabetic peripheral polyneuropathy Musculoskeletal: Muscle strength 5 of 5 age-appropriate. There is decreased range of motion of the ankle joint in dorsiflexion with the knee extended without pain or crepitus. There is decreased range of motion of the first MTPJ without pain or crepitus. There is pain with range of motion of the IPJ of the hallux. Pain to palpation about the distal phalanx of the hallux. Dermatologic: There is significant edema of the hallux with absence/destruction of the nail plate with some purulence emerging from the nailbed dorsally. There is mild erythema dorsally about the digit with dried crusted blood about the plantar aspect and distal tuft. Plantar skin of the hallux appears healthy and viable. There is some malodor to the dorsal aspect at area of concern. No palpable fluctuance/bogginess, no visible abscess formation. Skin no rashes or lesions noted and skin turgor normal Neuro moves all extremities Lab / Micro Data 07/28/24 16:54 07/28/24 16:54 Labs: Laboratory Results - last 24 hr 07/28/24 16:54: WBC 7.6, RBC 4.92, Hgb 14.6, Hct 42.8, MCV 87.0, MCH 29.7, MCHC 34.1, RDW Std Deviation 38.9, RDW Coeff of Mariza 12.2, Plt Count 213, MPV 9.5, Immature Gran % (Auto) 0.700, Neut % (Auto) 66.7, Lymph % (Auto) 23.4, Long % (Auto) 7.0, Eos % (Auto) 1.5, Baso % (Auto) 0.7, Absolute Neuts (auto) 5.0, Absolute Lymphs (auto) 1.77, Nucleated RBC % 0, ESR 13, Sodium 132 L, Potassium 5.2 H, Chloride 99, Carbon Dioxide 22.0, Anion Gap 12, BUN 25 H, Creatinine 0.68 L, Estim Creat Clear Calc 121.09, Est GFR (MDRD) Non-Af 108, BUN/Creatinine Ratio 36.1 H, Glucose 271 H, Lactic Acid 2.8 H*, Calcium 9.8, C-React Prot Ext Range 5.16 H Imaging Radiology Impression Foot X-Ray 07/28/24 16:48 IMPRESSION: Suspect cellulitis of the 1st digit with osteomyelitis of the 1st distal phalanx. Reading Location: [id number]
[2024-07-28] MEDS: Vancomycin HCl 1,750 MG in 0.9% Normal Saline (500mL Bag) 500 ML 250 MG IV (19:10)
--- NOTE | 2024-07-28 19:13 | PCM.HP.STD ---
HPI - General General Date of Admission: 07/28/24 HPI Narrative LIA PALM, is a 59 M who presents to the hospital with an infected left great toe. He says it has been going on for several days but he was trying to take care of it at home. On Sunday he was trying to manage it and had a chunk of flesh fall off but it took until today to come into the hospital. Blood cultures are pending and he did have an allergic reaction to cefepime as he has an anaphylactic reaction to penicillins so he was changed to Cipro in the ER and vancomycin. He does have good pulses distally so we will hold off on an CYDNEY. He does endorse being a diabetic but does not take any medications and he has not checked his blood sugar in over a year. His last A1c was 13.1 in 2021. He was having fevers earlier in the week but nothing currently. [facility] Medical History (Updated 07/28/24 @ 19:46 by Meghna Oviedo) Kidney stones Complex regional pain syndrome type 1 affecting left hand Tenosynovitis of wrist flexor Necrotizing fasciitis of hand COPD (chronic obstructive pulmonary disease) Hernia Depression Anxiety PTSD (post-traumatic stress disorder) Diabetes Home Medications ?Medication ?Instructions ?Recorded ?Last Taken ?Type blood-glucose meter (OneTouch #1 ea 02/16/22 Unknown Rx Verio Flex Meter) pen needle,diabetic dual safty 30 #100 ea 02/16/22 Unknown Rx gauge x 3/16 (BD AutoShield Duo Pen Needle) BD AutoShield Duo Pen Needle 30 #100 ea 03/30/22 Unknown Rx gauge x 3/16 (pen needle,diabetic dual safty) blood sugar diagnostic (OneTouch #100 ea 03/30/22 Unknown Rx Verio test strips) lancets 26 gauge (Easy Touch #200 ea 03/30/22 Unknown Rx Safety Lancets) hydroxyzine HCl 25 mg tablet 25 mg PO Q8H PRN anxiety, 03/02/23 07/27/24 Rx irritability, restlessness #21 tabs Allergy/AdvReac Type Severity Reaction Status Date / Time cefepime (From Maxipime) Allergy Severe Chest Verified 07/28/24 18:38 tightness amoxicillin Allergy Anaphylaxis Verified 05/07/23 14:18 Penicillins (PCN) Allergy Anaphylaxis Verified 05/07/23 14:18 aspirin (ASA) AdvReac Upset Verified 05/07/23 14:18 Stomach bee venom protein (honey bee) AdvReac Anaphylaxis Verified 05/07/23 14:18 ibuprofen AdvReac Upset Verified 05/07/23 14:18 Stomach oxycodone AdvReac Upset Verified 05/07/23 14:18 Stomach Family History Mother Diabetes Father Diabetes Cancer kidney Kidney disease Surgical History (Updated 05/21/23 @ 13:[address] 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 what type of physical activity do you participate in: none do you feel safe at home: Yes ROS Constitutional Constitutional: Denies chills, fatigue, fever(s) or malaise Eyes Eyes: Denies blurry vision ENT HEENT: Denies headache(s) or nasal discharge Cardiovascular Cardiovascular: Denies chest pain, dyspnea on exertion or syncope Respiratory/Chest Respiratory/Chest: Denies cough, shortness of breath at rest or shortness of breath with exertion Gastrointestinal Gastrointestinal: Denies constipation, diarrhea, nausea or vomiting Genitourinary Genitourinary: Denies dysuria Integumentary Integumentary: Reports wounds Neurologic Neurologic: Denies focal weakness, numbness or tremor(s) Psychiatric Psychiatric: Denies anxiety or depression Vital Signs Vital Signs Vital Signs: 07/28/24 15:59 07/28/24 16:58 07/28/24 17:58 Temperature 97.6 F L Temperature Source Temporal Pulse Rate 105 H 101 H 105 H Respiratory Rate 19 H 18 13 Blood Pressure 125/76 H 110/88 H 115/82 H Blood Pressure Mean 92 95 93 Pulse Ox 98 95 99 Oxygen Delivery Method Room Air 07/28/24 18:06 07/28/24 18:57 07/28/24 19:00 Temperature 98.2 F 98.2 F Temperature Source Temporal Pulse Rate 108 H 108 H 88 Respiratory Rate 19 H 19 H 18 Blood Pressure 115/82 H 115/82 H 138/95 H Blood Pressure Mean 93 93 109 Pulse Ox 97 97 98 Oxygen Delivery Method Room Air Weight Weight: 159 lb 6.307 oz Body Mass Index (BMI) 22.8 Physical Exam Narrative General: Alert, Oriented x3, Cooperative, No apparent distress HEENT: Atraumatic, PERRLA, EOMI, Normocephalic Oral: Moist Mucosa Neck: Supple, No JVD Lungs: Diminished, Normal air movement, No rhonchi, No wheeze, No rales Cardiovascular: Regular rate, Regular Rhythm, Normal S1, Normal S2, No murmurs Abdomen: Soft, Non Tender, Non-Distended, No Hepato-splenomegaly Extremities: No edema, Capillary Refill Less than 3 Seconds Skin: Left great toe swollen with purulent drainage and the nail avulsion Musculoskeletal: No Tenderness to Palpation of Joints or Extremities Neurological: No focal neurological deficits, Motor Exam 5/5 strength throughout, Sensory exam intact to light touch and pain Psych/Mental Status: Normal Affect, Appropriate Results Lab / Micro Data 07/28/24 16:54 07/28/24 16:54 Labs: Laboratory Results - last 24 hr 07/28/24 16:54: WBC 7.6, RBC 4.92, Hgb 14.6, Hct 42.8, MCV 87.0, MCH 29.7, MCHC 34.1, RDW Std Deviation 38.9, RDW Coeff of Mariza 12.2, Plt Count 213, MPV 9.5, Immature Gran % (Auto) 0.700, Neut % (Auto) 66.7, Lymph % (Auto) 23.4, [place] % (Auto) 7.0, Eos % (Auto) 1.5, Baso % (Auto) 0.7, Absolute Neuts (auto) 5.0, Absolute Lymphs (auto) 1.77, Nucleated RBC % 0, ESR 13, Sodium 132 L, Potassium 5.2 H, Chloride 99, Carbon Dioxide 22.0, Anion Gap 12, BUN 25 H, Creatinine 0.68 L, Estim Creat Clear Calc 121.09, Est GFR (MDRD) Non-Af 108, BUN/Creatinine Ratio 36.1 H, Glucose 271 H, Lactic Acid 2.8 H*, Calcium 9.8, C-React Prot Ext Range 5.16 H Imaging Radiology Impression Foot X-Ray 07/28/24 16:48 IMPRESSION: Suspect cellulitis of the 1st digit with osteomyelitis of the 1st distal phalanx. Reading Location: [id number] Assessment & Plan Assessment/Plan (1) Displaced unspecified fracture of left lesser toe(s), initial encounter for closed fracture: (2) Cellulitis of left toe: (3) Osteomyelitis, unspecified: PLAN: Plan 1. Osteomyelitis to his left great toe with nail avulsion from trauma ? He did drop 120 pound beam on his foot while restoring his truck about a month ago ? He has been trying to manage this at home unsuccessfully ? Blood cultures are pending, will try to obtain wound cultures here in the ER ? Consult podiatry plan for surgical intervention on either Sunday or of this week ? He was given cefepime in the ER and had an allergic reaction so this was transitioned to Cipro and vancomycin, of note he is anaphylactic to penicillins ? Continue with gentle IV fluids but will allow him to eat ? If clear margins can be obtained and he can likely be discharged on 2 weeks of antibiotics otherwise would need an ID consult for prolonged antibiotic course ? MRI pending per podiatry 2. Uncontrolled diabetes ? Will check an A1c ? His last A1c was 13.1 ? Continue with Lantus and sliding scale insulin ? Will monitor and make adjustments as necessary ? Will place him on 1800-calorie restriction and recommend dietitian for teaching DVT: Lovepriscillax 75 minutes was spent on direct patient care, including documentation as well as chart review and collaboration with colleagues Charges/Coding Visit Charges Inpatient E&M: 59196 Init Hosp L3
--- NOTE | 2024-07-28 20:10 | PCM.RX.CS ---
Consult Antibiotic Management Pharmacy has been consulted to manage selected antibiotic: Vancomycin Type of Intervention Type of Consult: New start Suspected Infection Suspected Infection: Osteomyelitis Labs Labs: Sodium 132 mmol/L (133-145) L 07/28/24 16:54 Potassium 5.2 mmol/L (3.3-5.1) H 07/28/24 16:54 Chloride 99 mmol/L (98-108) 07/28/24 16:54 Carbon Dioxide 22.0 mmol/L (21.0-32.0) 07/28/24 16:54 Anion Gap 12 (5-15) 07/28/24 16:54 BUN 25 mg/dL (4-19) H 07/28/24 16:54 Creatinine 0.68 mg/dL (0.70-1.20) L 07/28/24 16:54 Est GFR (MDRD) Non-Af 108 (>60) 07/28/24 16:54 BUN/Creatinine Ratio 36.1 RATIO (10-20) H 07/28/24 16:54 Glucose 271 mg/dL (70-99) H 07/28/24 16:54 Dosing Weight Weight used for dosin kg Estimated Creatinine Clearance Estimated Creatinine Clearance: 121 mL/min Goal Trough Goal Trough: 15-20 mcg/mL Pharmacy Plan for Drug Dosing Pharmacy Plan for Drug Dosing: NEW IV VANCOMYCIN Consulting Physician: Dr. Herrera Indication: Osteo Goal Trough: 15-20 SrCr: 0.68 CrCl: 121 mL/min Comments: pt received a 1750mg x1 dose in the ER on 07/28/24 at 1910 Vancomycin Dose: based on patients weight and renal function, recommend an initial dose of 1000mg q8h starting 07/29/24 at 0300. trough prior to the 4th total dose Pending Level: 07/29/24 at 1830 Pharmacy Service will continue to monitor and adjust dosing as required. Follow-Up Labs Follow-Up Labs: Trough: Vancomycin (07/29/24 @ 1830)
[2024-07-28 20:36] LABS: Bedside Glucose 203 mg/dL (74-106)
[2024-07-28 21:02] LABS: Reflex Lactate? Y
[2024-07-28] MEDS: 0.9% Normal Saline (1000mL) 1,000 ML 75 ML IV (21:33)
[2024-07-28] MEDS: Ciprofloxacin 400 MG/200 ML BAG 200 MG IV (22:04)
[2024-07-28] MEDS: Acetaminophen 500 MG Tablet 1000 MG PO (22:07)
[2024-07-28 22:41] LABS: Lactic Acid 1.5 mmol/L (0.0-2.0)
[2024-07-28] MEDS: Insulin Glargine-YFGN 100 UNIT/ML Pen 10 UNIT SC (22:41)
[2024-07-28] MEDS: Insulin Lispro 100 UNIT/ML INSULN.PEN SC (22:42)
[2024-07-28 23:02] LABS: Bedside Glucose 194 mg/dL (74-106)
[2024-07-29] MEDS: Vancomycin IV 1,000 MG/200 ML BAG 200 MG IV ×3 (03:25→19:35)
[2024-07-29 03:29] VITALS: BP 117/78; PULSE 87; RESP 16; TEMP 36.6; O2SAT 98
[2024-07-29 05:00] LABS: Absolute Lymphocyte Count 2.17 X10^3/uL (0.83-4.51); Absolute Neutrophil Count 4.9 X10^3/uL (2.0-7.7); Basophil# 0.05 X10^3/uL; Basophil% 0.6 % (0-1); Eosinophil# 0.18 X10^3/uL; Eosinophils% 2.3 % (0-5); Hematocrit 36.7 % (40-54); Hemoglobin 12.6 g/dL (13.0-16.5); Lymphocyte # 2.17 X10^3/ul (0.83-4.51); Lymphocyte % 27.4 % (19-41); Mean Corp Hgb Conc 34.3 g/dL (32-36); Mean Corpuscular Hgb 30.1 pg (27.0-32.0); Mean Corpuscular Volume 87.6 fL (80-94); Mean Platelet Vol. 9.3 fl (6.2-12.0); Monocyte% 7.6 % (0-10); NRBC Flagged by Analyzer 0 % (0-5); Neutrophil # 4.86 X10^3/uL (2.7-7.7); Neutrophil % 61.3 % (47-70); Platelet Count 175 K/mm3 (150-450); RBC Distribution Width CV 12.4 % (11.6-14.6); RBC Distribution Width SD 39.8 fl (35.1-43.9); Red Blood Count 4.19 M/mm3 (4.6-6.2); White Blood Count 7.9 K/mm3 (4.4-11.0)
[2024-07-29 05:29] LABS: Anion Gap 10 (5-15); BUN 23 mg/dL (4-19); BUN/Creat Ratio 32.1 RATIO (10-20); Calcium,Total 8.8 mg/dL (7.6-11.0); Carbon Dioxide 21.5 mmol/L (21.0-32.0); Chloride 105 mmol/L (98-108); Creatinine, Serum 0.72 mg/dL (0.70-1.20); EST Glomerular Filtration Rate 106 (>60); Estimated Creatinine Clearance 115.47 ml/min (50-250); Glucose 138 mg/dL (70-99); Potassium 4.7 mmol/L (3.3-5.1); Sodium Level 136 mmol/L (133-145)
[2024-07-29] MEDS: Acetaminophen 500 MG Tablet 1000 MG PO ×3 (06:29→21:45)
--- NOTE | 2024-07-29 06:31 | NURSING ---
pt hasn't voided. pt refusing to be bladder scanned
[2024-07-29 06:36] LABS: Hemoglobin A1c 11.6 % (<=5.6)
--- NOTE | 2024-07-29 07:14 | PN.HOSP_ITS ---
Reason for Visit Reason for Visit: Diagnoses Type 2 diabetes mellitus with diabetic polyneuropathy (07/28/24) Type 2 diabetes mellitus with foot ulcer (07/28/24) Cellulitis of left toe (07/28/24) Non-pressure chronic ulcer of other part of unspecified foot with unspecified severity (07/28/24) Osteomyelitis, unspecified (07/28/24) Unspecified open wound of left great toe with damage to nail, initial encounter (07/28/24) Displaced unspecified fracture of left lesser toe(s), initial encounter for closed fracture (07/28/24) Subjective Subjective Pain in foot. Objective Data Objective Data Vital Signs: Vital Signs Temp Pulse Resp BP Pulse Ox O2 Del Method 36.6 C 87 16 117/78 98 Room Air 07/29/24 03:29 07/29/24 03:29 07/29/24 03:29 07/29/24 03:29 07/29/24 03:29 07/29/24 03:30 Oxygen Delivery Method Room Air Weight: 74.3 kg Body Mass Index (BMI) 23.5 Intake & Output: Intake and Output for Last 24 Hours 07/27/24 07/28/24 07/29/24 23:59 23:59 23:59 Intake Total / 613.75 / 613.75 Balance 61.75 / 613.75 Lab / Micro Data 07/29/24 04:40 07/29/24 04:40 Labs: Laboratory Results - last 24 hr 07/28/24 16:54: WBC 7.6, RBC 4.92, Hgb 14.6, Hct 42.8, MCV 87.0, MCH 29.7, MCHC 34.1, RDW Std Deviation 38.9, RDW Coeff of Mariza 12.2, Plt Count 213, MPV 9.5, Immature Gran % (Auto) 0.700, Neut % (Auto) 66.7, Lymph % (Auto) 23.4, [place] % (Auto) 7.0, Eos % (Auto) 1.5, Baso % (Auto) 0.7, Absolute Neuts (auto) 5.0, Absolute Lymphs (auto) 1.77, Nucleated RBC % 0, ESR 13, Sodium 132 L, Potassium 5.2 H, Chloride 99, Carbon Dioxide 22.0, Anion Gap 12, BUN 25 H, Creatinine 0.68 L, Estim Creat Clear Calc 121.09, Est GFR (MDRD) Non-Af 108, BUN/Creatinine Ratio 36.1 H, Glucose 271 H, Lactic Acid 2.8 H*, Calcium 9.8, C-React Prot Ext Range 5.16 H 07/28/24 20:17: POC Glucose 203 H 07/28/24 21:25: Lactic Acid 1.5 07/28/24 22:40: POC Glucose 194 H 07/29/24 04:40: WBC 7.9, RBC 4.19 L, Hgb 12.6 L, Hct 36.7 L, MCV 87.6, MCH 30.1, MCHC 34.3, RDW Std Deviation 39.8, RDW Coeff of Mariza 12.4, Plt Count 175, MPV 9.3, Immature Gran % (Auto) 0.800, Neut % (Auto) 61.3, Lymph % (Auto) 27.4, [place] % (Auto) 7.6, Eos % (Auto) 2.3, Baso % (Auto) 0.6, Absolute Neuts (auto) 4.9, Absolute Lymphs (auto) 2.17, Nucleated RBC % 0, Sodium 136, Potassium 4.7, Chloride 105, Carbon Dioxide 21.5, Anion Gap 10, BUN 23 H, Creatinine 0.72, Estim Creat Clear Calc 115.47, Est GFR (MDRD) Non-Af 106, BUN/Creatinine Ratio 32.1 H, Glucose 138 H, Hemoglobin A1c 11.6, Calcium 8.8 Radiography Diagnostic Testing: Radiology Impression Foot X-Ray 07/28/24 16:48 IMPRESSION: Suspect cellulitis of the 1st digit with osteomyelitis of the 1st distal phalanx. Reading Location: [id number] Physical Exam Const alert and no apparent distress HEENT head/scalp atraumatic and moist oral mucous membranes Extremity Extremity Narrative: left great toe Assessment & Plan Assessment/Plan (1) Osteomyelitis, unspecified: PLAN: Left first digit osteomyelitis and cellulitis. Podiatry consulted. MRI ordered. Abx with cipro and vancomycin PLAN: Plan DM2: uncontrolled. * a1c 11.6 * glargine 10 units + SSI. Will increase glargine to 20 VTE prophylaxis: LMWH. Charges/Coding Visit Charges Inpatient E&M: 51690 Subs Hosp L1
[2024-07-29 07:59] VITALS: BP 123/73; PULSE 78; RESP 18; TEMP 36.7; O2SAT 98
[2024-07-29] MEDS: Glucerna Shake 120 ML LIQUID PO ×3 (08:14→16:44)
--- NOTE | 2024-07-29 09:00 | MRI_ITS ---
EXAM: Noncontrast MRI of the left foot. CLINICAL HISTORY: Left foot/great toe injury 4 weeks ago. Odor and drainage. Evaluate for osteomyelitis. History of diabetes. COMPARISON: Left foot radiographs 07/28/2024 TECHNIQUE: Multi planar, multisequence MRI images of the left foot were obtained without IV contrast. FINDINGS: The included tarsal bones and metatarsals, as well as the 2nd-5th toes are intact. There are elwv-od-hihenssy degenerative changes of the interphalangeal and MTP joints. The major flexor and extensor tendons appear intact. Some sequences are suboptimal due to motion artifact. There are myli-lh-xwuxelbb patchy areas of abnormal increased T2 signal involving the soft tissues and subcutaneous fat of the left foot, greatest involving the distal left 1st toe. No discrete drainable fluid collection of the left foot. There is abnormal heterogeneous decreased T1 and increased T2 signal involving a large portion of the distal phalanx left 1st toe, with a significant degree of cortical destruction. There appears to be cortical destruction of the mid to distal aspect of the distal phalanx of the left 1st toe, extending to the subungual region. The findings are suspicious for osteomyelitis. No other findings suspicious for osteomyelitis of the left foot. There appears to be comminuted pathologic fracture involving a large portion of the distal phalanx left 1st toe. MRI/Lower Ext/No Jt/w/o IMPRESSION: Abnormal decreased T1 and increased T2 signal with cortical destruction involvi ng a large portion of the distal phalanx left 1st toe, suspicious for osteomyelitis, with pathologic comminuted fracture. Foot a s above, likely due Degenerative changes of the left foot as above, likely due to osteoarthritis. The major flexor and extensor tendons appear intact. Reading Location: [facility]
[2024-07-29] MEDS: 0.9% Saline Lock 10 ML Syringe IV ×3 (09:15→17:01)
[2024-07-29] MEDS: ALPRAZolam 0.5 MG Tablet PO (09:15)
--- NOTE | 2024-07-29 09:41 | WOUNDNOTE ---
wound photo: left great toe
--- NOTE | 2024-07-29 09:42 | WOUNDNOTE ---
wound photo: left great toe
--- NOTE | 2024-07-29 11:12 | CASEMGMT ---
Addendum entered by Lisette Estrada 07/29/24 12:28: JEANNINE LIRA into pt room to see if pt is interested in potentially [facility] peer supporter feeding his fish if this was able to be set up. Pt states his fish are his sobriety and speaks of how important they are to him. He does not want someone in his home, he does not know. He is looking to see if a neighbor may assist. He is aware to notify JEANNINE LIRA should he change his mind. SW present in room as well. Original Note: JEANNINE LIRA Assessment: Face to Face with pt for initial transition planning/care coordination assessment. JEANNINE LIRA introduced self and role at [facility], pt voices understanding and consents to assessment. Pt is A&O x4 and answers all questions appropriately at this time. Pt lying in bed in no distress with nurse at bedside. Care providers, pharmacy, and demographics verified/updated. Admitting Dx:osteo of toe Strata Score: 2 PCP:Denies Specialists:Denies but sees a counselor Camilo at [facility] Preferred Pharmacy: [facility] Insurance: [facility] Community Plan Prescription Benefit: yes LNOK: Suzanne Cartwright- Pt unsure of last name spelling. She is only to be contacted for emergencies. Living Arrangements: Pt lives alone in an apt with 15-20 steps to enter with a rail. Pt states once in apt, it is on one level. Pt reports he is I in ADL/IADLs and denies concerns at home. Transportation: Pt drives self and denies concerns with transportation. DME:[facility] HHC/SNF: Denies hx of [facility], has been at [facility] and a SNF in [place] but cannot recall name. Pt states no concerns with going home at time of dc. Pt states he goes to [facility] for counseling for mental health as well as hx of substance abuse including alcohol and opiates. Pt reports being sober for 2 years. Pt denies any drug or alcohol use currently. He states he does not want any narcotics this hospital stay. Provided pt with a local healthcare directory and pt states that his counselor told him about a physician at [facility] who sees pts. He would like for his PCP. If this is not able to happen, pt would like [facility]. Pt would like his appt on Sunday afternoon as he states he uses the [email or web address] for food every Sunday at 1pm. He goes to the [facility] for laundry on Wednesdays at noon. Pt does not have a BGM and is agreeable to a rx for this. Pt provided an emergency personalized living assistant. Pt states his parents and children are and he does not have siblings. Pt reports he has fish at home and needs to go home within 3 days. He denies having anyone to care for them. Briefly discussed should pt need IV atb at [facility], pt states he has had IV's in the past at a SNF. He states should they be daily, he could come into [facility]. RN CM to follow for this. Pt states no further concerns/needs. CM to follow. Advised pt to ask CM if any further questions/concerns/needs arise, voices understanding. Pt Goal: Home Plan: TBD pending surgery, therapy eval and antibiotic needs Gold PAEZ CM
[2024-07-29 11:31] LABS: Bedside Glucose 133 mg/dL (74-106)
[2024-07-29] MEDS: Insulin Lispro 100 UNIT/ML INSULN.PEN SC ×3 (11:43→21:38)
[2024-07-29 12:05] LABS: Bedside Glucose 167 mg/dL (74-106)
[2024-07-29] MEDS: Ciprofloxacin 400 MG/200 ML BAG 200 MG IV ×2 (12:45→21:33)
--- NOTE | 2024-07-29 13:05 | CASEMGMT ---
Social Work- SW met with pt to complete SDOH assessment. SW introduced self and role; pt agreeable to meeting. Pt reports that he receives $988 in social security. Pt has an EBT card, but physically has not had a card since September 2023. Pt reports that he has called [employer] trying to get a new card, but has not yet received one. Pt reports that he receives rent assistance through [employer] and utility assistance through [employer]. Pt reports that he has worked with a counselor from [facility] for three years. Pt reports he has a friend local that he borrows a vehicle from and has another local friend that he hangs out with. Pt reports that he would like new housing, as the other three apartments in his building house drug users and dealers and pt reports that he can smell and taste the drugs being used. Pt reports that he does not have any safety concerns and can take care of himself. Pt denies any other needs at this time. SW provided resources outlined in SDOH assessment. SIDRA collaborated with RNCM for care needs. ASHLY Rogers
--- NOTE | 2024-07-29 14:25 | CASEMGMT ---
TC wendy Morrell at [facility] to set up PCP appt. She states she will have an answer on Sunday this week. She will call pt to make aware as well as JEANNINE LIRA.
[2024-07-29 15:30] VITALS: BP 110/71; PULSE 85; RESP 16; TEMP 36.9; O2SAT 98
[2024-07-29 16:35] VITALS: BP 106/64; PULSE 79; RESP 16; TEMP 36.8; O2SAT 96
[2024-07-29] MEDS: 0.9% Normal Saline (1000mL) 1,000 ML 75 ML IV (16:59)
[2024-07-29 17:18] LABS: Bedside Glucose 227 mg/dL (74-106)
[2024-07-29 18:53] LABS: Vancomycin, Trough Level 14.4 ug/mL (5.0-15.0)
--- NOTE | 2024-07-29 19:01 | PCM.RX.CS ---
Consult Antibiotic Management Pharmacy has been consulted to manage selected antibiotic: Vancomycin Type of Intervention Type of Consult: Follow-up Suspected Infection Suspected Infection: Osteomyelitis Prior Doses of Antibiotics Prior Doses of Antibiotics Received/Current Regimen: current dose is vanc 1000mg IV q8h Labs Labs: Sodium 136 mmol/L (133-145) 07/29/24 04:40 Potassium 4.7 mmol/L (3.3-5.1) 07/29/24 04:40 Chloride 105 mmol/L (98-108) 07/29/24 04:40 Carbon Dioxide 21.5 mmol/L (21.0-32.0) 07/29/24 04:40 Anion Gap 10 (5-15) 07/29/24 04:40 BUN 23 mg/dL (4-19) H 07/29/24 04:40 Creatinine 0.72 mg/dL (0.70-1.20) 07/29/24 04:40 Est GFR (MDRD) Non-Af 106 (>60) 07/29/24 04:40 BUN/Creatinine Ratio 32.1 RATIO (10-20) H 07/29/24 04:40 Glucose 138 mg/dL (70-99) H 07/29/24 04:40 Vancomycin Trough 14.4 ug/mL (5.0-15.0) 07/29/24 18:03 Microbiology Microbiology: Microbiology 07/28/24 19:15 Wound - Toe Gram Stain - Final 07/28/24 19:15 Wound - Toe Wound Culture - Preliminary Staphylococcus aureus Dosing Weight Weight used for dosin.3 kg Estimated Creatinine Clearance Estimated Creatinine Clearance: 115 ml/min Goal Trough Goal Trough: 15-20 mcg/mL Pharmacy Plan for Drug Dosing Pharmacy Plan for Drug Dosing: The vanc trough drawn at 18:03 (approx 7 hours after the previous dose) was 14.4 mcg/ml. This is just shy of the goal range so will keep same dose for now. The patient has only had a 1750mg dose x1 and 2 1000mg doses so it is expected that the trough will rise further into the goal range, especially with dosing at an 8-hr interval. Repeat another trough in 2 days per protocol. Pharmacy Service will continue to monitor and adjust dosing as required. Follow-Up Labs Follow-Up Labs: Trough: Vancomycin Date/Time Labs Ordered Labs to be done on [date and time ordered]: 07/31/24 10:30
[2024-07-29] MEDS: Insulin Glargine-YFGN 100 UNIT/ML Pen 20 UNIT SC (21:41)
[2024-07-29 21:43] VITALS: BP 117/70; PULSE 82; RESP 18; TEMP 36.8; O2SAT 98
[2024-07-29 22:07] LABS: Bedside Glucose 215 mg/dL (74-106)
[2024-07-30] MEDS: hydrOXYzine PAM 25 MG Capsule PO ×2 (00:36→16:23)
[2024-07-30] MEDS: Vancomycin IV 1,000 MG/200 ML BAG 200 MG IV ×3 (02:56→18:52)
[2024-07-30 05:55] VITALS: BP 130/76; PULSE 82; RESP 18; TEMP 36.4; O2SAT 97
[2024-07-30] MEDS: Acetaminophen 500 MG Tablet 1000 MG PO ×3 (05:57→21:53)
[2024-07-30] MEDS: Insulin Lispro 100 UNIT/ML INSULN.PEN SC ×4 (05:59→21:55)
[2024-07-30 06:32] LABS: Bedside Glucose 190 mg/dL (74-106)
--- NOTE | 2024-07-30 06:55 | PCM.PN.HOSP ---
Reason for Visit Reason for Visit: Diagnoses Type 2 diabetes mellitus with diabetic polyneuropathy (07/28/24) Type 2 diabetes mellitus with foot ulcer (07/28/24) Cellulitis of left toe (07/28/24) Non-pressure chronic ulcer of other part of unspecified foot with unspecified severity (07/28/24) Osteomyelitis, unspecified (07/28/24) Unspecified open wound of left great toe with damage to nail, initial encounter (07/28/24) Displaced unspecified fracture of left lesser toe(s), initial encounter for closed fracture (07/28/24) Subjective Subjective Complains of toenail issues on the right. Objective Data Objective Data Vital Signs: Vital Signs Temp Pulse Resp BP Pulse Ox O2 Del Method 36.4 C L 82 18 130/76 H 97 Room Air 07/30/24 05:55 07/30/24 05:55 07/30/24 05:55 07/30/24 05:55 07/30/24 05:55 07/30/24 05:55 Oxygen Delivery Method Room Air Weight: 74.3 kg Body Mass Index (BMI) 23.5 Intake & Output: Intake and Output for Last 24 Hours 07/28/24 07/29/24 07/30/24 23:59 23:59 23:59 Intake Total 3680.00 / 3680.00 528.75 / 528.75 Output Total 2450 / 2450 600 / 600 Balance 1230.00 / 1230.00 -71.25 / -71.25 Lab / Micro Data 07/30/24 06:44 07/30/24 06:44 Labs: Laboratory Results - last 24 hr 07/29/24 06:26: POC Glucose 133 H 07/29/24 11:38: POC Glucose 167 H 07/29/24 16:42: POC Glucose 227 H 07/29/24 18:03: Vancomycin Trough 14.4 07/29/24 21:37: POC Glucose 215 H 07/30/24 05:58: POC Glucose 190 H Micro: Microbiology 07/28/24 19:15 Wound - Toe Gram Stain - Final 07/28/24 19:15 Wound - Toe Wound Culture - Preliminary Staphylococcus aureus Radiography Diagnostic Testing: Radiology Impression Lower Extremity MRI 07/29/24 09:00 IMPRESSION: Abnormal decreased T1 and increased T2 signal with cortical destruction involving a large portion of the distal phalanx left 1st toe, suspicious for osteomyelitis, with pathologic comminuted fracture. Foot as above, likely due Degenerative changes of the left foot as above, likely due to osteoarthritis. The major flexor and extensor tendons appear intact. Reading Location: [facility] Physical Exam Const alert and no apparent distress HEENT head/scalp atraumatic and moist oral mucous membranes Resp normal respiratory effort and no retractions Extremity Extremity Narrative: left great toe bandaged--did not remove. cracked Neuro Sensorium / Orientation: awake and alert Assessment & Plan Assessment/Plan (1) Osteomyelitis, unspecified: PLAN: Left first digit osteomyelitis and cellulitis. Podiatry consulted. Surgery planned for 07/31 MRI destruction of the distal phalynx of left 1st toe Abx with cipro and vancomycin Wound culture positive for S. aureus. PLAN: Plan DM2: uncontrolled. a1c 11.6 glargine 20 units + SSI. VTE prophylaxis: LMWH. Charges/Coding Visit Charges Inpatient E&M: 90460 Subs Hosp L1
[2024-07-30 07:43] LABS: Absolute Lymphocyte Count 1.77 X10^3/uL (0.83-4.51); Absolute Neutrophil Count 2.5 X10^3/uL (2.0-7.7); Basophil# 0.03 X10^3/uL; Basophil% 0.6 % (0-1); Eosinophil# 0.19 X10^3/uL; Eosinophils% 3.8 % (0-5); Hematocrit 37.7 % (40-54); Hemoglobin 12.7 g/dL (13.0-16.5); Lymphocyte # 1.77 X10^3/ul (0.83-4.51); Lymphocyte % 35.3 % (19-41); Mean Corp Hgb Conc 33.7 g/dL (32-36); Mean Corpuscular Hgb 29.6 pg (27.0-32.0); Mean Corpuscular Volume 87.9 fL (80-94); Mean Platelet Vol. 9.6 fl (6.2-12.0); Monocyte# 0.44 X10^3/uL; Monocyte% 8.8 % (0-10); NRBC Flagged by Analyzer 0 % (0-5); Neutrophil # 2.53 X10^3/uL (2.7-7.7); Neutrophil % 50.5 % (47-70); Platelet Count 167 K/mm3 (150-450); RBC Distribution Width CV 12.4 % (11.6-14.6); RBC Distribution Width SD 39.3 fl (35.1-43.9); Red Blood Count 4.29 M/mm3 (4.6-6.2)
[2024-07-30 08:09] LABS: Anion Gap 9 (5-15); BUN 14 mg/dL (4-19); BUN/Creat Ratio 23.7 RATIO (10-20); Calcium,Total 8.6 mg/dL (7.6-11.0); Carbon Dioxide 21.1 mmol/L (21.0-32.0); Chloride 105 mmol/L (98-108); Creatinine, Serum 0.58 mg/dL (0.70-1.20); EST Glomerular Filtration Rate 113 (>60); Estimated Creatinine Clearance 143.34 ml/min (50-250); Glucose 150 mg/dL (70-99); Sodium Level 135 mmol/L (133-145)
[2024-07-30] MEDS: Ciprofloxacin 400 MG/200 ML BAG 200 MG IV ×2 (10:08→21:51)
[2024-07-30] MEDS: 0.9% Saline Lock 10 ML Syringe IV ×2 (10:08→18:52)
[2024-07-30 10:15] VITALS: BP 98/69; PULSE 78; RESP 16; TEMP 36.6; O2SAT 98
[2024-07-30] MEDS: Glucerna Shake 120 ML LIQUID PO ×3 (10:27→16:23)
[2024-07-30] MEDS: 0.9% Normal Saline (1000mL) 1,000 ML 75 ML IV (10:29)
[2024-07-30 12:10] LABS: Bedside Glucose 203 mg/dL (74-106)
--- NOTE | 2024-07-30 13:27 | PCM.PROGNOTE ---
Subjective Subjective Patient seen in the afternoon resting in bed. States that he feels he is doing okay at the moment and states that the pain is feeling better. Denies constitutional symptoms. Denies further complaints. Objective Data Objective Data Vital Signs: Vital Signs Temp Pulse Resp BP Pulse Ox O2 Del Method 97.8 F 78 16 98/69 98 Room Air 07/30/24 10:15 07/30/24 10:15 07/30/24 10:15 07/30/24 10:15 07/30/24 10:15 07/30/24 10:15 Oxygen Delivery Method Room Air Weight: 74.3 kg Body Mass Index (BMI) 23.5 Intake & Output: Intake and Output for Last 24 Hours 07/28/24 07/29/24 07/30/24 23:59 23:59 23:59 Intake Total / 3680.00 / 3680.00 1131.25 / 1131.25 Output Total 2450 / 2450 600 / 600 Balance 1230.00 / 1230.00 531.25 / 531.25 Lab / Micro Data 07/30/24 06:44 07/30/24 06:44 Labs: Laboratory Results - last 24 hr 07/29/24 16:42: POC Glucose 227 H 07/29/24 18:03: Vancomycin Trough 14.4 07/29/24 21:37: POC Glucose 215 H 07/30/24 05:58: POC Glucose 190 H 07/30/24 06:44: WBC 5.0, RBC 4.29 L, Hgb 12.7 L, Hct 37.7 L, MCV 87.9, MCH 29.6, MCHC 33.7, RDW Std Deviation 39.3, RDW Coeff of Mariza 12.4, Plt Count 167, MPV 9.6, Immature Gran % (Auto) 1.000 H, Neut % (Auto) 50.5, Lymph % (Auto) 35.3, [place] % (Auto) 8.8, Eos % (Auto) 3.8, Baso % (Auto) 0.6, Absolute Neuts (auto) 2.5, Absolute Lymphs (auto) 1.77, Nucleated RBC % 0, Sodium 135, Potassium 4.0, Chloride 105, Carbon Dioxide 21.1, Anion Gap 9, BUN 14, Creatinine 0.58 L, Estim Creat Clear Calc 143.34, Est GFR (MDRD) Non-Af 113, BUN/Creatinine Ratio 23.7 H, Glucose 150 H, Calcium 8.6 07/30/24 11:44: POC Glucose 203 H Micro: Microbiology 07/28/24 19:15 Wound - Toe Gram Stain - Final 07/28/24 19:15 Wound - Toe Wound Culture - Final Staphylococcus aureus Radiography Diagnostic Testing: Radiology Impression Lower Extremity MRI 07/29/24 09:00 IMPRESSION: Abnormal decreased T1 and increased T2 signal with cortical destruction involving a large portion of the distal phalanx left 1st toe, suspicious for osteomyelitis, with pathologic comminuted fracture. Foot as above, likely due Degenerative changes of the left foot as above, likely due to osteoarthritis. The major flexor and extensor tendons appear intact. Reading Location: [facility] Physical Exam Const alert, oriented x3 and no apparent distress General Appearance: cooperative HEENT normocephalic Eyes General Eye: normal appearance of both eyes Neck General: normal visual inspection Lymph Lymphatic: no lymphadenopathy noted and no lymphedema noted Resp normal respiratory effort Cardio regular rate and regular rhythm Extremity no calf tenderness Extremity Narrative: Left lower extremity: Vascular: DP and PT pulses palpable. CFT less than 4 seconds to the digits. Normal temperature gradient. Hair growth is diminished to digits. Neurologic: Gross sensation intact. Protective sensation diminished to the foot consistent with diabetic peripheral polyneuropathy Musculoskeletal: Muscle strength 5 of 5 age-appropriate. There is decreased range of motion of the ankle joint in dorsiflexion with the knee extended without pain or crepitus. There is decreased range of motion of the first MTPJ without pain or crepitus. There is pain with range of motion of the IPJ of the hallux. Pain to palpation about the distal phalanx of the hallux. Dermatologic: There is significant edema of the hallux with absence/destruction of the nail plate with some purulence emerging from the nailbed dorsally. There is mild erythema dorsally about the digit with dried crusted blood about the plantar aspect and distal tuft. Plantar skin of the hallux appears healthy and viable. There is some malodor to the dorsal aspect at area of concern. No palpable fluctuance/bogginess, no visible abscess formation. Skin no rashes or lesions noted and skin turgor normal Neuro moves all extremities Assessment & Plan Assessment/Plan (1) Unspecified open wound of left great toe with damage to nail, initial encounter: (2) Osteomyelitis, unspecified: (3) Cellulitis of left toe: (4) Diabetes mellitus with diabetic polyneuropathy: (5) Type 2 diabetes mellitus with foot ulcer: (6) Displaced unspecified fracture of left lesser toe(s), initial encounter for closed fracture: PLAN: Plan Patient seen and evaluated Left foot: There is significant edema of the hallux with absence/destruction of the nail plate with some purulence emerging from the nailbed dorsally. There is mild erythema dorsally about the digit with dried crusted blood about the plantar aspect and distal tuft. Plantar skin of the hallux appears healthy and viable. There is some malodor to the dorsal aspect at area of concern. No palpable fluctuance/bogginess, no visible abscess formation. WBC currently 5.0, ESR 13, CRP 5.16, lactic acid 1.5 improved from 2.8, glucose 150 Last recorded A1c 13.1 on 03/30/2022. Updated HgbA1c was 11.1% on 07/28/2024 Currently on IV vancomycin/ciprofloxacin due to allergies to PCN and cephalosporins Radiograph obtained of the left foot on 07/28/24 demonstrating soft tissue edema of the first digit suggestive of cellulitis. Destruction of the head and neck of the distal phalanx worrisome for osteomyelitis. I reviewed his radiographs of the left foot. There is soft tissue edema about the left hallux. I do feel there is a crush fracture of the distal phalanx but with addition of nailbed laceration and damage osteomyelitis is highly likely given 4 weeks of open wound. MRI of the left foot was performed on 07/29/2024 demonstrating comminuted fracture of the distal phalanx of the left hallux in addition to cortical destruction consistent with osteomyelitis on T1 and T2 imaging. Betadine to the ulcerative site dressed with Adaptic and dry sterile dressing. Patient may be weightbearing to left heel with surgical shoe for transfers/bathroom privileging. Medicine team following for medical management of his diabetes, they are greatly appreciated and their assistance Infectious disease consulted for antibiotic management Wound nurse consulted for assistance in dressing changes. I did discuss surgical amputation of the distal phalanx of the left hallux. Discussed the risk and benefits of the procedure. Discussed all complications of the procedure. Discussed that these risks include but are not limited to the following: Pain, continued pain, complex regional pain syndrome, phantom pain, neuritis/numbness, delayed healing/nonhealing, dehiscence, edema, difficulty with ambulation, difficulty with shoe gear, contracture of the digit, reulceration due to his diabetic peripheral polyneuropathy/insensate foot, stroke, heart attack, allergic reaction, addiction to pain medication, loss of function, loss of limb, loss of life. Patient understands these and was able to repeat these back. Patient is understanding of the need for surgical intervention to prevent more proximal amputation, sepsis, or loss of life due to infection. Patient understands that this is not an elective procedure and the goal of the procedure is limb salvage and infection clearance. Patient is willing to proceed forward with the surgical intervention. All questions were answered to the patient's level of satisfaction. Patient will remain n.p.o. overnight with surgical intervention to occur tomorrow morning, for 1025 at 7:30 AM. Consent to be obtained for partial amputation of the left hallux Will continue to follow while in house Barron Garner Jr. D.P.M. [facility] [phone]
[2024-07-30 16:10] VITALS: BP 114/60; PULSE 85; RESP 16; TEMP 36.9; O2SAT 97
[2024-07-30] MEDS: oxyCODONE 5 MG Tablet PO (16:23)
[2024-07-30 18:44] LABS: Bedside Glucose 195 mg/dL (74-106)
[2024-07-30 21:08] VITALS: BP 140/91; PULSE 71; RESP 18; TEMP 36.6; O2SAT 99
[2024-07-30 21:27] LABS: Bedside Glucose 216 mg/dL (74-106)
[2024-07-30] MEDS: Insulin Glargine-YFGN 100 UNIT/ML Pen 20 UNIT SC (21:54)
[2024-07-31] VITALS (13 sets, daily range): BP systolic 97–136; BP diastolic 59–91; PULSE 72–88; RESP 16–18; TEMP 36.4–37.1; O2SAT 95–100; BMI 23.5
[2024-07-31] MEDS: 0.9% Normal Saline (1000mL) 1,000 ML 75 ML IV (00:27)
--- NOTE | 2024-07-31 00:44 | EKG12_ITS ---
Test Reason : CP Blood Pressure : */* mmHG Vent. Rate : 78 BPM Atrial Rate : 78 BPM P-R Int : 168 ms QRS Dur : 124 ms QT Int : 374 ms P-R-T Axes : 51 -46 2 degrees QTcB Int : 426 ms Normal sinus rhythm Left anterior fascicular block Minimal voltage criteria for LVH, may be normal variant ( Hunter product ) Nonspecific T wave abnormality Abnormal ECG When compared with ECG of 31-Jul-2024 05:35, Left bundle branch block is no longer Present Confirmed by Braron Parra ([id number]), art editor KAREN RICO ([id number]) on 08/08/2024 7:09:18 AM Referred By: Kenroy Herrera Confirmed By: Barron Parra
[2024-07-31] MEDS: Vancomycin IV 1,000 MG/200 ML BAG 200 MG IV ×3 (02:59→18:31)
[2024-07-31 04:57] LABS: Absolute Lymphocyte Count 1.81 X10^3/uL (0.83-4.51); Basophil# 0.05 X10^3/uL; Basophil% 0.9 % (0-1); Eosinophil# 0.22 X10^3/uL; Eosinophils% 3.9 % (0-5); Hematocrit 38.9 % (40-54); Hemoglobin 13.1 g/dL (13.0-16.5); Lymphocyte # 1.81 X10^3/ul (0.83-4.51); Mean Corp Hgb Conc 33.7 g/dL (32-36); Mean Corpuscular Hgb 29.8 pg (27.0-32.0); Mean Corpuscular Volume 88.6 fL (80-94); Mean Platelet Vol. 9.3 fl (6.2-12.0); Monocyte# 0.51 X10^3/uL; NRBC Flagged by Analyzer 0 % (0-5); Neutrophil # 3.02 X10^3/uL (2.7-7.7); Neutrophil % 53.3 % (47-70); Platelet Count 178 K/mm3 (150-450); RBC Distribution Width CV 12.3 % (11.6-14.6); RBC Distribution Width SD 40.1 fl (35.1-43.9); Red Blood Count 4.39 M/mm3 (4.6-6.2); White Blood Count 5.7 K/mm3 (4.4-11.0)
[2024-07-31 06:12] LABS: Bedside Glucose 117 mg/dL (74-106)
[2024-07-31 06:14] LABS: Anion Gap 10 (5-15); BUN 12 mg/dL (4-19); BUN/Creat Ratio 17.3 RATIO (10-20); Calcium,Total 8.9 mg/dL (7.6-11.0); Carbon Dioxide 22.9 mmol/L (21.0-32.0); Chloride 106 mmol/L (98-108); Creatinine, Serum 0.71 mg/dL (0.70-1.20); EST Glomerular Filtration Rate 107 (>60); Glucose 141 mg/dL (70-99); Potassium 4.3 mmol/L (3.3-5.1); Sodium Level 138 mmol/L (133-145)
--- NOTE | 2024-07-31 06:30 | RAD_ITS ---
EXAM: XR Left Toes, 2 or More Views CLINICAL INDICATION: LT TOE AMPUTATION TECHNIQUE: Frontal, lateral and oblique views of the toes of the left foot. COMPARISON: No relevant prior studies available. FINDINGS: BONES/JOINTS: Unremarkable. No acute fracture. No dislocation. SOFT TISSUES: Unremarkable. No radiopaque foreign body. OTHER FINDINGS: Total fluoroscopy time was 4 seconds. Total radiation dose was 0.2959 mGy. 3 images were obtained. RAD/Toe(s) Min 2 Views IMPRESSION: Fluoroscopic guidance was used intraoperatively. Please refer to the operative note for further details. Reading [facility]
--- NOTE | 2024-07-31 06:36 | PRE.ANES_ITS ---
ASA Classification* ASA Classification ASA Classification: 3 Assessment & Plan Anesthesia* Anesthesia Assessment Anesthesia Assessment: Discussed sedation and/or anesthesia options, risks, benefits, and alternatives with patient/parents/legal guardian/POA. Questions invited. The patient/parents/legal guardian/POA seems to understand and agrees to proceed with anesthesia plan. Reviewed the physical assessment, medical history, allergy history and patient home medications list prior to surgery/procedure/anesthetic and documented any changes. Performed airway and anesthesia risk assessments. Anesthesia Type Anesthesia Type: General History Source History Obtained from:: Patient and Chart Anesthesia Focused Assessment* Temperature: 97.6 F Pulse Rate: 72 Blood Pressure: 127/85 Respiratory Rate: 18 Pulse Ox: 99 Oxygen Delivery Method: Room Air Airway Assessment Mouth opens: >3 cm Mallampati Score: III Teeth Condition: Missing (Patient is edentulous.) Neck Range of motion (ROM): Limited ROM (Patient had plates and screws placed in his cervical spine.) Focused Labs Anesthesia Preop lab: CBC WBC 5.7 K/mm3 (4.4-11.0) 07/31/24 04:11 07/31/24 RBC 4.39 M/mm3 (4.6-6.2) L 07/31/24 04:11 07/31/24 Hgb 13.1 g/dL (13.0-16.5) 07/31/24 04:11 07/31/24 Hct 38.9 % (40-54) L 07/31/24 04:11 07/31/24 Plt Count 178 K/mm3 (150-450) 07/31/24 04:11 07/31/24 CHEMISTRY Potassium 4.3 mmol/L (3.3-5.1) 07/31/24 04:11 07/31/24 Sodium 138 mmol/L (133-145) 07/31/24 04:11 07/31/24 BUN 12 mg/dL (4-19) 07/31/24 04:11 07/31/24 Creatinine 0.71 mg/dL (0.70-1.20) 07/31/24 04:11 07/31/24 Glucose 141 mg/dL (70-99) H 07/31/24 04:11 07/31/24 POC Glucose 117 mg/dL (74-106) H 07/31/24 05:48 07/31/24 COAG PT 17.1 SECONDS (11.7-14.9) H 01/11/23 10:37 12/23 05/15 Pre-Assessment Diagnosis/Proposed Procedure Planned Operative Procedure(s): Amputation left big toe. 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 When Was Last Pacemaker Check QUESTION #4 FULL TEXT: You/Your Family Experience fever (hyperthermia) with Anesthesia Last Oral Intake Last Oral intake: Last Oral Intake NPO since 00:00 07/31/24 06:20 Meds taken in AM with sips of No 07/31/24 06:20 water? Meds patient instructed to take am of surgery PONV PONV - building trades instructor: PONV - building trades instructor Female HX of Motion Sickness HX of N/V After Surgery Non-Smoker Duration of Surgery greater than 60 minutes Number of Risk Factors PONV Score Height & Weight Height & Weight: Anesthesia: Height & Weight Height 5 ft 10 in 07/31/24 06:20 Weight: 74.4 kg 07/31/24 06:20 Body Mass Index (BMI) 23.5 07/31/24 06:20 Respiratory Assessment Respiratory Assessment - building trades instructor: Respiratory Tract Infection Hx - building trades instructor Hx Respiratory Tract Infection No 07/30/24 21:49 STOP Sleep Apnea STOP Sleep Apnea - building trades instructor: STOP Sleep Apnea - building trades instructor Hx Hypertension No 07/29/24 15:03 Hx Sleep Apnea No 07/28/24 19:34 CPAP No 01/02/22 14:10 BIPAP No 01/02/22 14:10 Do you snore loudly (louder No 07/28/24 19:34 than talking or can be heard Do you often feel tired/ No 07/28/24 19:34 fatigued/ sleepy during daytime? Has anyone observed you stop No 07/28/24 19:34 breathing during sleep? STOP Results Negative 07/28/24 19:34 QUESTION #5 FULL TEXT : Do you snore loudly (louder than talking or can be heard through closed doors)? 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 Specify any problems Hx of Preganancy in last 3 N/A 07/28/24 19:34 Months Nurse Filling Out Transfusion SWITHUY 07/28/24 19:34 & Questions: Date: 07/28/24 07/28/24 19:34 Time: 19:37 07/28/24 19:34 Patient unable to answer at this time (ie. confused, unrespo /Reproduction History /Reproductive History - building trades instructor: /Reproductive Hx- building trades instructor Hx Now Gestational Age (in weeks): EDC: Hx Hx Para Hx Section SAB Active Medications Active Medications: Current Medications Generic Name Dose Route Start Last Admin Trade Name Freq PRN Reason Stop Dose Admin Acetaminophen 1,000 mg 07/28/24 22:00 07/31/24 05:56 Acetaminophen 500 Mg Tablet PO Not Given Q8 SUSAN Enoxaparin Sodium 40 mg 07/29/24 10:00 07/30/24 10:26 Enoxaparin 40 Mg/0.4 Ml Syringe SC Not Given DAILY SUSAN Glucagon 1 mg 07/28/24 19:58 Glucagon 1 Mg/Ml Syringe IM X1 PRN HYPOGLYCEMIA Protocol Hydroxyzine Pamoate 25 mg 07/28/24 19:58 07/30/24 16:23 Hydroxyzine Janis 25 Mg Capsule PO 25 mg Q8H PRN PRN Administration anxiety, irritability, restlessness Sodium Chloride 100 mls @ 15 mls/hr 07/28/24 19:40 IV .Q6H40M PRN Saline Flush Sodium Chloride 100 mls @ 15 mls/hr 07/28/24 19:40 IV .Q6H40M PRN Additional IVPB Infusion Dextrose 250 mls @ 0 mls/hr 07/28/24 19:58 Dextrose 10%-Water IV .Q0M PRN HYPOGLYCEMIA Protocol As Directed Sodium Chloride 1,000 mls @ 75 mls/hr 07/28/24 19:58 07/31/24 05:57 IV 0 mls/hr .[id number] SUSAN Infusion Ciprofloxacin 400 mg in 200 mls @ 200 mls/hr 07/28/24 22:00 07/30/24 22:51 Cipro IV Infused Q12 SUSAN Infusion Vancomycin IV-PHARMACY TO DOSE 500 mls @ 250 mls/hr 07/28/24 19:58 1 each/ Sodium Chloride IV X1 PRN Rx to Dose Protocol Vancomycin HCl 1,000 mg in 200 mls @ 200 mls/hr 07/29/24 03:00 07/31/24 04:00 Vancomycin IV Infused Q8H SUSAN Infusion Insulin Glargine 20 unit 07/29/24 22:00 07/30/24 21:54 Insulin Glargine-Yfgn 100 Unit/Ml Pen SC 20 unit QHS [facility] Administration Protocol Insulin Human Lispro 0 unit 07/28/24 22:00 07/31/24 05:55 Insulin Lispro 100 Unit/Ml Insuln.Pen SC Not Given ACHS [facility] Protocol Morphine Sulfate 2 - 4 mg 07/28/24 19:58 Morphine 2 Mg/Ml Syringe IV Q3H PRN PRN Pain Score 6-10 Morphine Sulfate 2 - 4 mg 07/28/24 20:02 Morphine 4 Mg/Ml Syringe IV Q3H PRN PRN Pain Score 6-10 Nutritional Formula (Lactose Free) 120 ml 07/29/24 08:00 07/30/24 16:23 Glucerna Shake 120 Ml Liquid PO 120 ml TIDCM SUSAN Administration Ondansetron HCl 4 mg 07/28/24 19:58 Ondansetron 4 Mg/2 Ml Vial IV Q8H PRN PRN NAUSEA/VOMITING Oxycodone HCl 5 mg 07/28/24 19:58 07/30/24 16:23 Oxycodone 5 Mg Tablet PO 5 mg Q4H PRN PRN Administration Pain Score 4-10 Sodium Chloride 10 - 40 ml 07/28/24 19:40 07/30/24 18:52 0.9% Saline Lock 10 Ml Syringe IV 20 ml UD PRN Administration SALINE FLUSH Vancomycin Protocol 1 lab 07/31/24 09:30 Vancomycin Trough/Random Due 07/31/24 11:30 DAILY [facility] PFS Medical History Kidney stones Complex regional pain syndrome type 1 affecting left hand Tenosynovitis of wrist flexor Necrotizing fasciitis of hand COPD (chronic obstructive pulmonary disease) Hernia Depression Anxiety PTSD (post-traumatic stress disorder) Diabetes Home Medications ?Medication ?Instructions ?Recorded ?Last Taken ?Type blood-glucose meter (OneTouch #1 ea 02/16/22 Unknown R x Verio Flex Meter) pen needle,diabetic dual safty 30 #100 ea 02/16/22 Unk nown Rx gauge x 3/16 (BD AutoShield Duo Pen Needle) BD AutoShield Duo Pen Needle 30 #100 ea 03/30/22 Unkno wn Rx gauge x 3/16 (pen needle,diabetic dual safty) blood sugar diagnostic (OneTouch #100 ea 03/30/22 Unkn own Rx Verio test strips) lancets 26 gauge (Easy Touch #200 ea 03/30/22 Unknown Rx Safety Lancets) hydroxyzine HCl 25 mg tablet 25 mg PO Q8H PRN anxiety, 03/02/23 07/27/24 Rx irritability, restlessness #21 tabs Allergy/AdvReac Type Severity Reaction Status Date / Time cefepime (From Maxipime) Allergy Severe Chest Verified 07/28/24 18:38 tightness amoxicillin Allergy Anaphylaxis Verified 05/07/23 14:18 Penicillins (PCN) Allergy Anaphylaxis Verified 05/07/23 14:18 aspirin (ASA) AdvReac Upset Verified 05/07/23 14:18 Stomach bee venom protein (honey bee) AdvReac Anaphylaxis Verified 05/07/23 14:18 ibuprofen AdvReac Upset Verified 05/07/23 14:18 Stomach oxycodone AdvReac Upset Verified 05/07/23 14:18 Stomach Family History Mother Diabetes Father Diabetes Cancer kidney Kidney disease Surgical History History of incision and drainage History of back surgery Hx of neck surgery Social History household members: none current occupational status: disabled 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
[2024-07-31] MEDS: 0.9% Normal Saline (1000mL) 1,000 ML 15 ML IV (06:45)
--- NOTE | 2024-07-31 07:30 | AMP_PTH ---
PATIENT: BARRON PALM LOC: [facility] U#:[id number] AGE/SX: 59/M ROOM: [facility]311 RE07/28/[address]: Dr. Loi Mcdonough DO : 1965 BED: 1 DIS: 08/03/2024 SPEC #: [id number] RECD: 07/31/24 09:01 STATUS: RHONDA KAREN #: [id number] SHANEKA: 07/31/24 07:[address]: Barron Garner DEPT: SURGICAL PATHOLOGY RECD BY: Kermit Hearn ENTERED: 07/31/24 09:02 SP TYPE: Amputation OTHR DR: DO Dr. Kenroy Aguilar MD No Primary Care Phys Tissues: A - Toe, NOS Procedures: Decalcification bone/plaque Surgery Specimen Level IV HEADER OPERATION: Amputation toe, hallux PRE-OP DIAGNOSIS: Unspecified open wound of left great toe with damage to nail initial encounter, osteomyelitis, cellulitis of left toe, diabetes mellitus with diabetic polyneuropathy, type 2 diabetes mellitus with foot ulcer, displaced unspecified fracture of lesser toes TISSUE SUBMITTED: A- Left great toe MICROSCOPIC DIAGNOSIS A. Left hallux, amputation: * Marked acute and chronic inflammation with ulceration and granulation tissue of the soft tissue * Areas of bone with acute and chronic osteomyelitis MICROSCOPIC DESCRIPTION Slides are reviewed. GROSS DESCRIPTION A. Received in formalin in a container labeled with the patient's name, date of , and left great toe is a 3.9 x 1.8 x 1.6 cm disarticulated fragment of firm, bhatti bone with attached shaggy bhatti-pink soft tissue. No skin or nail is present. The disarticulated surface is bhatti, smooth, and firm. Sectioning reveals firm and unremarkable surfaces. Locomotive Boilermaker sections:A1. Soft tissueA2. Bone following decalcification [facility] 07-31-2024 CPT:23336,11493
--- NOTE | 2024-07-31 08:08 | WOUNDNOTE ---
Pt going to surgery today. will leave dressing in place.
[2024-07-31] MEDS: Lidocaine 1% (30 ml sdv) 30 ML Vial (08:10)
[2024-07-31] MEDS: Bupivacaine Mpf 0.5% 30 ML VIAL (08:10)
--- NOTE | 2024-07-31 08:12 | PN.HOSP_ITS ---
Reason for Visit Reason for Visit: Diagnoses Type 2 diabetes mellitus with diabetic polyneuropathy (07/28/24) Type 2 diabetes mellitus with foot ulcer (07/28/24) Cellulitis of left toe (07/28/24) Non-pressure chronic ulcer of other part of unspecified foot with unspecified severity (07/28/24) Osteomyelitis, unspecified (07/28/24) Unspecified open wound of left great toe with damage to nail, initial encounter (07/28/24) Displaced unspecified fracture of left lesser toe(s), initial encounter for closed fracture (07/28/24) Subjective Subjective Had chest pain. Worse with deep respirations. Objective Data Objective Data Vital Signs: Vital Signs Temp Pulse Resp BP Pulse Ox O2 Del Method 36.4 C L 72 18 127/85 H 99 Room Air 07/31/24 06:42 07/31/24 06:42 07/31/24 06:42 07/31/24 06:42 07/31/24 06:42 07/31/24 06:42 Oxygen Delivery Method Room Air Weight: 74.4 kg Body Mass Index (BMI) 23.5 Intake & Output: Intake and Output for Last 24 Hours 07/29/24 07/30/24 07/31/24 23:59 23:59 23:59 Intake Total 3680.00 / 3680.00 4061.25 / 4061.25 656.25 / 656.25 Output Total 2450 / 2450 1250 / 1250 Balance 1230.00 / 1230.00 2811.25 / 2811.25 656.25 / 656.25 Lab / Micro Data 07/31/24 04:11 07/31/24 04:11 Labs: Laboratory Results - last 24 hr 07/30/24 11:44: POC Glucose 203 H 07/30/24 16:07: POC Glucose 195 H 07/30/24 21:05: POC Glucose 216 H 07/31/24 04:11: WBC 5.7, RBC 4.39 L, Hgb 13.1, Hct 38.9 L, MCV 88.6, MCH 29.8, MCHC 33.7, RDW Std Deviation 40.1, RDW Coeff of Mariza 12.3, Plt Count 178, MPV 9.3, Immature Gran % (Auto) 0.900, Neut % (Auto) 53.3, Lymph % (Auto) 32.0, [place] % (Auto) 9.0, Eos % (Auto) 3.9, Baso % (Auto) 0.9, Absolute Neuts (auto) 3.0, Absolute Lymphs (auto) 1.81, Nucleated RBC % 0, Sodium 138, Potassium 4.3, Chloride 106, Carbon Dioxide 22.9, Anion Gap 10, BUN 12, Creatinine 0.71, Estim Creat Clear Calc 117.10, Est GFR (MDRD) Non-Af 107, BUN/Creatinine Ratio 17.3, G lucose 141 H, Calcium 8.9 07/31/24 05:48: POC Glucose 117 H Micro: Microbiology 07/28/24 16:50 Blood Culture (Wb) - Anticubital Right Blood Culture - Preliminary No growth in 48 hours. 07/28/24 16:54 Blood Culture (Wb) - Anticubital Left Blood Culture - Preliminary No growth in 48 hours. 07/28/24 19:15 Wound - Toe Gram Stain - Final 07/28/24 19:15 Wound - Toe Wound Culture - Final Staphylococcus aureus Physical Exam Const alert and no apparent distress Constitutional Narrative: reproducible chest pain. HEENT head/scalp atraumatic and moist oral mucous membranes Resp normal respiratory effort and no retractions Cardio regular rate, regular rhythm, S1 normal heart sound and S2 normal heart sound GI normal to inspection, nondistended, normoactive bowel sounds Assessment & Plan Assessment/Plan (1) Osteomyelitis, unspecified: PLAN: Left first digit osteomyelitis and cellulitis. Podiatry consulted. Surgery planned for 07/31 MRI destruction of the distal phalynx of left 1st toe Abx with cipro and vancomycin Wound culture positive for S. aureus. Consult ID for recommendations. (2) Chest pain: PLAN: EKG reviewed and was unremarkable. Chest pain reproducible. No additional work up PLAN: Plan DM2: uncontrolled. * a1c 11.6 * glargine 20 units + SSI. VTE prophylaxis: LMWH. Charges/Coding Visit Charges Inpatient E&M: 73388 Subs Hosp L2
--- NOTE | 2024-07-31 08:29 | RAD_ITS ---
EXAM: XR Left Foot Complete, 3 or More Views CLINICAL INDICATION: POSTOP DISTAL HALLUX AMPUTATION (PACU) TECHNIQUE: Frontal, lateral and oblique views of the left foot. COMPARISON: No relevant prior studies available. FINDINGS: BONES/JOINTS: Amputation at the 1st interphalangeal joint. No acute fracture. No dislocation. SOFT TISSUES: Soft tissue swelling. No radiopaque foreign body. RAD/Foot min 3 Views IMPRESSION: Postoperative changes as above. Reading Location: [facility]
--- NOTE | 2024-07-31 08:30 | PCM.POST.ANE ---
Anesthesia: Postop Eval I Current Vital Signs Temperature: 97.6 F Pulse Rate: 87 Blood Pressure: 122/91 Respiratory Rate: 16 Pulse Ox: 99 Oxygen Delivery Method: Room Air Assessment Airway patent: Yes Spontaneous unlabored respirations: Yes Mental status: Awake nausea: No Vomiting: No Anesthesia Complication: No Fluid Hydration Crystalloid volume administer (ml): 500 Total IV fluid infused: 500 Progress Note Anesthesia document: Postop Eval 1 completed: Yes
--- NOTE | 2024-07-31 08:41 | PCM.OPRPT ---
Problems Associated Problem List Diagnoses (1) Open wound of right great toe with damage to nail: (2) Displaced unspecified fracture of left lesser toe(s), initial encounter for closed fracture: (3) Osteomyelitis, unspecified: (4) Cellulitis of left toe: (5) Diabetes mellitus with diabetic polyneuropathy: (6) Type 2 diabetes mellitus with foot ulcer: Operative Report (Standard) Operative Information Date of Procedure: 07/31/24 Pre-Operative Diagnosis: 1. Open fracture distal phalanx left hallux 2. Osteomyelitis left distal phalanx of hallux 3. Cellulitis left hallux 4. DM type II with peripheral polyneuropathy 5. DM type II with foot ulceration Post-Operative Diagnosis: 1. Open fracture distal phalanx left hallux 2. Osteomyelitis left distal phalanx of hallux 3. Cellulitis left hallux 4. DM type II with peripheral polyneuropathy 5. DM type II with foot ulceration Surgery/Procedure Performed: 1. Amputation of the distal phalanx of the left hallux at the interphalangeal joint pediatric neurologist: Yes Ski Technician: Dr. Vidhi Feliciano, DPM PGY-2 Tasks completed by assisted living administrator: Opening & closing, Dissecting tissue, Removing tissue and Altering tissue Type of Anesthesia: General and Local (20 cc one-to-one mixture 1% lidocaine plain and 0.5% Marcaine plain) RN Documented Start/Stop Times: Operation Date: 07/31/24 07:30 Case Time Into Pre-Op 07/31/24 06:32 Out of Pre-Op 07/31/24 07:20 Anesthesia Start 07/31/24 07:22 Into Room 07/31/24 07:22 Procedure Start 07/31/24 07:43 Procedure End 07/31/24 08:16 Anesthesia End 07/31/24 08:23 Out of Room 07/31/24 08:23 Into Recovery 07/31/24 08:25 Out of Recovery 07/31/24 09:14 Procedure Start Time: 07:43 Procedure Stop Time: 08:16 Select all DRAINS/GRAFTS/IMPLANTS that apply: None Estimated Blood Loss: < 1mL Specimen collected: Yes Description of specimen(s) removed: Tissue and bone distal phalanx left hallux to micro and pathology Description of surgery: HPI/indication: Patient is a 59-year-old male who presented to [facility] ED evening of 07/28/2024 with concern of worsening infection of his left hallux. Patient was restoring a truck 1 month ago and during the process dropped 120 pound beam onto the foot and not wearing steel toe shoes at the time. Stated his toe with crushed and split like a grape. He has not been following anyone or seeking medical treatment as he was too stubborn to be seen and has been caring for the digit himself. Patient is a type II diabetic does not check sugars and his previous reported A1c in 2021 was 13.1. Radiographs were ordered in the ED demonstrating comminuted crush fracture of the distal phalanx of the left hallux with sinus track and cortical destruction consistent with osteomyelitis. MRI was obtained 07/29/24 confirming osteomyelitis of the distal phalanx of the left hallux. I did discuss surgical amputation of the distal phalanx of the left hallux. Discussed the risk and benefits of the procedure. Discussed all complications of the procedure. Discussed that these risks include but are not limited to the following: Pain, continued pain, complex regional pain syndrome, phantom pain, neuritis/numbness, delayed healing/nonhealing, dehiscence, edema, difficulty with ambulation, difficulty with shoe gear, contracture of the digit, reulceration due to his diabetic peripheral polyneuropathy/insensate foot, stroke, heart attack, allergic reaction, addiction to pain medication, loss of function, loss of limb, loss of life. Patient understands these and was able to repeat these back. Patient is understanding of the need for surgical intervention to prevent more proximal amputation, sepsis, or loss of life due to infection. Patient understands that this is not an elective procedure and the goal of the procedure is limb salvage and infection clearance. Patient is willing to proceed forward with the surgical intervention. Consent was signed and obtained at patient's free well. Operative limb was signed prior to entering the OR. He was set to undergo amputation of the distal phalanx of the left hallux at [facility] on 07/31/2024. Procedure: Under mild sedation patient brought to the operating placed on table supine position. Patient was secured to table with safety belt. Following induction of general anesthetic a local anesthetic block was then performed about the patient's left first metatarsophalangeal joint consisting of 10 cc of one-to-one mixture 1% lidocaine plain and 0.5% Marcaine plain. A pneumatic calf tourniquet was placed about the patient's left calf. The foot was then scrubbed, prepped, and draped in the usual aseptic manner. Esmarch bandage was utilized to exsanguinate the foot and the foot was elevated and the pneumatic calf tourniquet was inflated to 250 mmHg. At this time utilizing fluoroscopy landmarks were marked and digit was visualized demonstrating chronic destruction of the distal phalanx in addition to comminuted fracture of the left hallux. Next, a fishmouth shaped incision was utilized overlying the interphalangeal joint encompassing the distal phalanx utilizing a #15 blade and deepened to bone. The dorsal skin was dissected free from the distal phalanx along with scant purulence within the tissue and passed from the operative field to the table in total. This was collected for microbiology sample. Next, utilizing a towel clamp the distal phalanx was grasped and was noted to be soft and mushy consistent with acute osteomyelitis. The distal phalanx was then dissected free of all surrounding soft tissue utilizing #15 blade and transferred from the operative field to the table in total. At the table the sample was split into 2 with half going to microbiology for culture and the other half of the distal phalanx going to pathology for permanent. Surrounding soft tissues were dissected free of the tendinous structures and any necrotic tissue. Site was copiously irrigated with normal sterile saline. Next, the proximal phalanx was visualized noting healthy appearing cartilage and hardness of bone consistent with viability. Site was again flushed with copious amounts of normal sterile saline and the plantar fat pad was then debulked to utilize as soft tissue skin flap. Flap underwent local remodeling for aesthetic closure of the amputation site. Site was again flushed with copious amounts of normal sterile saline and underwent inspection for any remaining necrotic tissue which none was noted. Deep tissue underwent closure utilizing 4-0 Vicryl. Skin was reapproximated utilizing 3-0 Prolene in simple interrupted fashion. Final fluoroscopic imaging was obtained demonstrating distal amputation of the distal phalanx of the left hallux. Next, a local anesthetic block was then performed about the proximal aspect of the base of the proximal phalanx/first MTPJ consisting of 10 cc one-to-one mixture of 1% lidocaine plain and 0.5% Marcaine for postoperative block. The pneumatic calf tourniquet was then deflated and a prompt hyperemic response was noted to the remaining digits of the left foot and the amputation stump of the hallux. Incision site was then dressed with Betadine soaked Adaptic, 4 x 4 gauze, Kerlix, and a 4 inch Zay wrap rolled onto the foot. Patient tolerated the procedure and anesthesia well was transferred to PACU with vital signs stable vascular status intact to the left foot. Patient will return to floor and continue to receive IV antibiotics, vancomycin/ciprofloxacin while in house. He is permitted to bear weight to the heel utilizing surgical shoe to the left foot for bathroom privileges. He will continue to elevate the left foot at all times rest for postoperative edema control. I will continue to follow while in house. Surgical Findings: See operative note for findings Complications Complications: No Admit VTE Documentation VTE Present on Admission: No VTE Mechan Device Prophylaxis: SCD's VTE Pharm Prophylaxis ordered?: No Reason prophylaxis not ordered: Treatment Not Indicated
--- NOTE | 2024-07-31 09:07 | POSTOPAN2_ITS ---
Anesthesia Postop Eval I Sum Postop Eval Completion status Anesthesia document: Postop Eval 1 completed: Yes Anesthesia Postop Eval I Summary Anesthesia Postop Eval I Summary: Anesthesia Postop Eval I: Assessment Summary Airway patent Yes 07/31/24 08:31 [employer] [email or web address] Spontaneous unlabored Yes 07/31/24 08:31 [email or web address] respirations Mental status Awake 07/31/24 08:31 [employer] [email or web address] nausea No 07/31/24 08:31 [employer] [email or web address] Vomiting No 07/31/24 08:31 [employer] [email or web address] Anesthesia Postop Eval I: Fluid Summary Crystalloid volume administer 500 07/31/24 08:31 [employer] [email or web address] (ml) Colloids volume administered ( ml) Blood Product volume administered (ml) Total IV fluid infused 500 07/31/24 08:31 [employer] [email or web address] Anesthesia Postop Eval I: Summary Notes Anesthesia Complication No 07/31/24 08:31 [employer] [email or web address] Anesthesia Complication Comment: Post-operative progress note Anesthesia: Postop Eval II Evaluation Mental status: Awake and Calm Pain Level: 1 nausea: No Vomiting: No Complications Anesthesia Complication: No
--- NOTE | 2024-07-31 09:07 | PCM.POSTANE2 ---
Anesthesia Postop Eval I Sum Postop Eval Completion status Anesthesia document: Postop Eval 1 completed: Yes Anesthesia Postop Eval I Summary Anesthesia Postop Eval I Summary: Anesthesia Postop Eval I: Assessment Summary Airway patent Yes 07/31/24 08:31 AIR [email or web address] [email or web address] Spontaneous unlabored Yes 07/31/24 08:31 AIR [email or web address] [email or web address] respirations Mental status Awake 07/31/24 08:31 AIR [email or web address] [email or web address] nausea No 07/31/24 08:31 AIR CARGO SPECIALIST.[email or web address] Vomiting No 07/31/24 08:31 AIR [email or web address] [email or web address] Anesthesia Postop Eval I: Fluid Summary Crystalloid volume administer 500 07/31/24 08:31 AIR [email or web address] [email or web address] (ml) Colloids volume administered ( ml) Blood Product volume administered (ml) Total IV fluid infused 500 07/31/24 08:31 AIR CARGO [email or web address] Anesthesia Postop Eval I: Summary Notes Anesthesia Complication No 07/31/24 08:31 AIR CARGO [email or web address] Anesthesia Complication Comment: Post-operative progress note Anesthesia: Postop Eval II Evaluation Mental status: Awake and Calm Pain Level: 1 nausea: No Vomiting: No Complications Anesthesia Complication: No
--- NOTE | 2024-07-31 09:42 | EKG12_ITS ---
Test Reason : PRE OP Blood Pressure : */* mmHG Vent. Rate : 69 BPM Atrial Rate : 69 BPM P-R Int : 182 ms QRS Dur : 122 ms QT Int : 396 ms P-R-T Axes : 69 -55 -8 degrees QTcB Int : 424 ms Normal sinus rhythm Left bundle branch block Abnormal ECG When compared with ECG of 26-Mar-2023 11:16, Premature ventricular complexes are no longer Present Premature supraventricular complexes are no longer Present Nonspecific T wave abnormality now evident in Inferior leads T wave inversion now evident in Anterior leads Confirmed by MIKALA VALLE, RENITA ([id number]), newspaper editor KAREN RICO ([id number]) on 07/31/2024 12:49:15 PM Referred By: Kenroy Herrera Confirmed By: RENITA BACH MD
[2024-07-31] MEDS: Acetaminophen 500 MG Tablet 1000 MG PO ×3 (10:07→21:08)
[2024-07-31] MEDS: Ciprofloxacin 400 MG/200 ML BAG 200 MG IV ×2 (10:49→21:20)
[2024-07-31 11:22] LABS: Vancomycin, Trough Level 16.3 ug/mL (5.0-15.0)
[2024-07-31] MEDS: Glucerna Shake 120 ML LIQUID PO (11:25)
--- NOTE | 2024-07-31 11:40 | PCM.RX.CS ---
Consult Antibiotic Management Pharmacy has been consulted to manage selected antibiotic: Vancomycin Type of Intervention Type of Consult: Follow-up Suspected Infection Suspected Infection: Osteomyelitis Prior Doses of Antibiotics Prior Doses of Antibiotics Received/Current Regimen: Vancomycin 1000mg every 8 hours given: 07/30/24 @ 1146 07/30/24 @ 1852 07/30/24 @ 0259 Labs Labs: Sodium 138 mmol/L (133-145) 07/31/24 04:11 Potassium 4.3 mmol/L (3.3-5.1) 07/31/24 04:11 Chloride 106 mmol/L (98-108) 07/31/24 04:11 Carbon Dioxide 22.9 mmol/L (21.0-32.0) 07/31/24 04:11 Anion Gap 10 (5-15) 07/31/24 04:11 BUN 12 mg/dL (4-19) 07/31/24 04:11 Creatinine 0.71 mg/dL (0.70-1.20) 07/31/24 04:11 Est GFR (MDRD) Non-Af 107 (>60) 07/31/24 04:11 BUN/Creatinine Ratio 17.3 RATIO (10-20) 07/31/24 04:11 Glucose 141 mg/dL (70-99) H 07/31/24 04:11 Vancomycin Trough 16.3 ug/mL (5.0-15.0) H 07/31/24 10:10 Microbiology Microbiology: Microbiology 07/28/24 16:50 Blood Culture (Wb) - Anticubital Right Blood Culture - Preliminary No growth in 48 hours. 07/28/24 16:54 Blood Culture (Wb) - Anticubital Left Blood Culture - Preliminary No growth in 48 hours. 07/28/24 19:15 Wound - Toe Gram Stain - Final 07/28/24 19:15 Wound - Toe Wound Culture - Final Staphylococcus aureus Dosing Weight Weight used for dosin kg Estimated Creatinine Clearance Estimated Creatinine Clearance: 117 Goal Trough Goal Trough: 15-20 mcg/mL Pharmacy Plan for Drug Dosing Pharmacy Plan for Drug Dosing: Vancomycin 1000mg every 8 hours Pharmacy Service will continue to monitor and adjust dosing as required. Follow-Up Labs Follow-Up Labs: Trough: Vancomycin Date/Time Labs Ordered Labs to be done on [date and time ordered]: 08/01/24 @ 1030
[2024-07-31 12:12] LABS: Bedside Glucose 159 mg/dL (74-106)
[2024-07-31] MEDS: oxyCODONE 5 MG Tablet PO ×2 (14:29→21:15)
[2024-07-31] MEDS: hydrOXYzine PAM 25 MG Capsule PO ×2 (14:29→23:04)
--- NOTE | 2024-07-31 16:02 | CASEMGMT ---
Social Work Written information provided to pt on body donation to science per pt's request. ASHLY Flanagan
[2024-07-31 16:52] LABS: Bedside Glucose 190 mg/dL (74-106)
[2024-07-31] MEDS: Insulin Lispro 100 UNIT/ML INSULN.PEN SC ×2 (18:11→21:16)
[2024-07-31] MEDS: Insulin Glargine-YFGN 100 UNIT/ML Pen 20 UNIT SC (21:16)
[2024-07-31] MEDS: 0.9% Saline Lock 10 ML Syringe IV (21:21)
[2024-07-31 22:40] LABS: Bedside Glucose 222 mg/dL (74-106)
[2024-08-01] MEDS: Morphine 2 MG/ML Syringe IV (01:23)
[2024-08-01] MEDS: Ondansetron 4 MG/2 ML Vial IV (01:23)
[2024-08-01 01:49] VITALS: BP 96/58; PULSE 91; RESP 18; TEMP 36.6; O2SAT 98
[2024-08-01] MEDS: Vancomycin IV 1,000 MG/200 ML BAG 200 MG IV ×3 (03:10→18:11)
[2024-08-01] MEDS: oxyCODONE 5 MG Tablet PO ×2 (03:12→21:19)
[2024-08-01] MEDS: Acetaminophen 500 MG Tablet 1000 MG PO ×3 (04:52→21:19)
[2024-08-01 05:00] VITALS: BP 108/72; PULSE 81; RESP 16; TEMP 36.4; O2SAT 99
[2024-08-01 05:21] LABS: Absolute Lymphocyte Count 1.79 X10^3/uL (0.83-4.51); Absolute Neutrophil Count 6.2 X10^3/uL (2.0-7.7); Basophil# 0.05 X10^3/uL; Basophil% 0.5 % (0-1); Eosinophil# 0.23 X10^3/uL; Eosinophils% 2.5 % (0-5); Hematocrit 38.3 % (40-54); Hemoglobin 12.8 g/dL (13.0-16.5); Lymphocyte # 1.79 X10^3/ul (0.83-4.51); Lymphocyte % 19.4 % (19-41); Mean Corp Hgb Conc 33.4 g/dL (32-36); Mean Corpuscular Hgb 29.9 pg (27.0-32.0); Mean Corpuscular Volume 89.5 fL (80-94); Mean Platelet Vol. 9.2 fl (6.2-12.0); Monocyte% 9.8 % (0-10); NRBC Flagged by Analyzer 0 % (0-5); Neutrophil # 6.17 X10^3/uL (2.7-7.7); Neutrophil % 66.9 % (47-70); Platelet Count 183 K/mm3 (150-450); RBC Distribution Width CV 12.5 % (11.6-14.6); RBC Distribution Width SD 40.7 fl (35.1-43.9); Red Blood Count 4.28 M/mm3 (4.6-6.2); White Blood Count 9.2 K/mm3 (4.4-11.0)
[2024-08-01 05:51] LABS: Anion Gap 11 (5-15); BUN 15 mg/dL (4-19); BUN/Creat Ratio 22.3 RATIO (10-20); Calcium,Total 8.9 mg/dL (7.6-11.0); Carbon Dioxide 22.2 mmol/L (21.0-32.0); Chloride 102 mmol/L (98-108); Creatinine, Serum 0.69 mg/dL (0.70-1.20); EST Glomerular Filtration Rate 107 (>60); Estimated Creatinine Clearance 120.49 ml/min (50-250); Glucose 175 mg/dL (70-99); Potassium 4.3 mmol/L (3.3-5.1); Sodium Level 135 mmol/L (133-145)
[2024-08-01] MEDS: Insulin Lispro 100 UNIT/ML INSULN.PEN SC ×4 (06:40→21:54)
[2024-08-01 06:51] LABS: Bedside Glucose 220 mg/dL (74-106)
--- NOTE | 2024-08-01 07:34 | PCM.PN.HOSP ---
Reason for Visit Reason for Visit: Diagnoses Type 2 diabetes mellitus with diabetic polyneuropathy (07/28/24) Type 2 diabetes mellitus with foot ulcer (07/28/24) Cellulitis of left toe (07/28/24) Non-pressure chronic ulcer of other part of unspecified foot with unspecified severity (07/28/24) Osteomyelitis, unspecified (07/28/24) Chest pain, unspecified (07/28/24) Unspecified open wound of right great toe with damage to nail, initial encounter (07/28/24) Unspecified open wound of left great toe with damage to nail, initial encounter (07/28/24) Displaced unspecified fracture of left lesser toe(s), initial encounter for closed fracture (07/28/24) Subjective Subjective Feeling well. Objective Data Objective Data Vital Signs: Vital Signs Temp Pulse Resp BP Pulse Ox O2 Del Method 36.4 C L 81 16 108/72 99 Room Air 08/01/24 05:00 08/01/24 05:00 08/01/24 05:00 08/01/24 05:00 08/01/24 05:00 08/01/24 05:00 Oxygen Delivery Method Room Air Weight: 74.4 kg Body Mass Index (BMI) 23.5 Intake & Output: Intake and Output for Last 24 Hours 07/30/24 07/31/24 08/01/24 23:59 23:59 23:59 Intake Total 4061.25 / 4061.25 1525.00 / 1525.00 350 / 350 Output Total 1250 / 1250 2024 / 2024 Balance 2811.25 / 2811.25 1525.00 / 550.00 -1675 / -1675 Lab / Micro Data 08/01/24 04:46 08/01/24 04:46 Labs: Laboratory Results - last 24 hr 07/31/24 10:10: Vancomycin Trough 16.3 H 07/31/24 11:17: POC Glucose 159 H 07/31/24 16:31: POC Glucose 190 H 07/31/24 21:14: POC Glucose 222 H 08/01/24 04:46: WBC 9.2, RBC 4.28 L, Hgb 12.8 L, Hct 38.3 L, MCV 89.5, MCH 29.9, MCHC 33.4, RDW Std Deviation 40.7, RDW Coeff of Mariza 12.5, Plt Count 183, MPV 9.2, Immature Gran % (Auto) 0.900, Neut % (Auto) 66.9, Lymph % (Auto) 19.4, [place] % (Auto) 9.8, Eos % (Auto) 2.5, Baso % (Auto) 0.5, Absolute Neuts (auto) 6.2, Absolute Lymphs (auto) 1.79, Nucleated RBC % 0, Sodium 135, Potassium 4.3, Chloride 102, Carbon Dioxide 22.2, Anion Gap 11, BUN 15, Creatinine 0.69 L, Estim Creat Clear Calc 120.49, Est GFR (MDRD) Non-Af 107, BUN/Creatinine Ratio 22.3 H, Glucose 175 H, Calcium 8.9 08/01/24 06:32: POC Glucose 220 H Micro: Microbiology 07/28/24 16:50 Blood Culture (Wb) - Anticubital Right Blood Culture - Preliminary No growth in 48 hours. 07/28/24 16:54 Blood Culture (Wb) - Anticubital Left Blood Culture - Preliminary No growth in 48 hours. 07/28/24 19:15 Wound - Toe Gram Stain - Final 07/28/24 19:15 Wound - Toe Wound Culture - Final Staphylococcus aureus Radiography Diagnostic Testing: Radiology Impression Toe X-Ray 07/31/24 06:30 IMPRESSION: Fluoroscopic guidance was used intraoperatively. Please refer to the operative note for further details. Reading Location: [facility] Foot X-Ray 07/31/24 08:29 IMPRESSION: Postoperative changes as above. Reading Location: [facility] Physical Exam Const alert and no apparent distress HEENT head/scalp atraumatic and moist oral mucous membranes Neuro Sensorium / Orientation: awake and alert Assessment & Plan Assessment/Plan (1) Osteomyelitis, unspecified: PLAN: Left first digit osteomyelitis and cellulitis. Podiatry consulted. Surgery 07/31 amputation of the distal phalanx of the left hallux at the IP joint. MRI destruction of the distal phalanx of left 1st toe Abx with cipro and vancomycin. DC cipro. Wound culture positive for MSSA. Surgical shoe for bathroom privileges and transition to bed. (2) Chest pain: PLAN: EKG reviewed and was unremarkable. Chest pain reproducible. No additional work up PLAN: Plan DM2: uncontrolled. a1c 11.6 glargine 20 units + SSI. VTE prophylaxis: LMWH. Charges/Coding Visit Charges Inpatient E&M: 84101 Subs Hosp L1
--- NOTE | 2024-08-01 07:54 | PN_ITS ---
Subjective Subjective Patient seen and evaluated this a.m. with wound nurse present. He states that he did bump his bedside stand last night turning in bed. States that the toe is still a little tender from surgery yesterday however he understands this is expected. Denies constitutional symptoms. Denies further complaints. Objective Data Objective Data Vital Signs: Vital Signs Temp Pulse Resp BP Pulse Ox O2 Del Method 97.6 F L 81 16 108/72 99 Room Air 08/01/24 05:00 08/01/24 05:00 08/01/24 05:00 08/01/24 05:00 08/01/24 05:00 08/01/24 05:00 Oxygen Delivery Method Room Air Weight: 74.4 kg Body Mass Index (BMI) 23.5 Intake & Output: Intake and Output for Last 24 Hours 07/30/24 07/31/24 08/01/24 23:59 23:59 23:59 Intake Total 4061.25 / 4061.25 1525.00 / 1525.00 350 / 350 Output Total 1250 / 1250 2024 / 2024 Balance 2811.25 / 2811.25 1525.00 / 550.00 -1675 / -1675 Lab / Micro Data 08/01/24 04:46 08/01/24 04:46 Labs: Laboratory Results - last 24 hr 07/31/24 10:10: Vancomycin Trough 16.3 H 07/31/24 11:17: POC Glucose 159 H 07/31/24 16:31: POC Glucose 190 H 07/31/24 21:14: POC Glucose 222 H 08/01/24 04:46: WBC 9.2, RBC 4.28 L, Hgb 12.8 L, Hct 38.3 L, MCV 89.5, MCH 29.9, MCHC 33.4, RDW Std Deviation 40.7, RDW Coeff of Mariza 12.5, Plt Count 183, MPV 9.2, Immature Gran % (Auto) 0.900, Neut % (Auto) 66.9, Lymph % (Auto) 19.4, Jack % (Auto) 9.8, Eos % (Auto) 2.5, Baso % (Auto) 0.5, Absolute Neuts (auto) 6.2, Absolute Lymphs (auto) 1.79, Nucleated RBC % 0, Sodium 135, Potassium 4.3, Chloride 102, Carbon Dioxide 22.2, Anion Gap 11, BUN 15, Creatinine 0.69 L, Estim Creat Clear Calc 120.49, Est GFR (MDRD) Non-Af 107, BUN/Creatinine Ratio 22.3 H, Glucose 175 H, Calcium 8.9 08/01/24 06:32: POC Glucose 220 H Micro: Microbiology 07/28/24 16:50 Blood Culture (Wb) - Anticubital Right Blood Culture - Preliminary No growth in 48 hours. 07/28/24 16:54 Blood Culture (Wb) - Anticubital Left Blood Culture - Preliminary No growth in 48 hours. 07/28/24 19:15 Wound - Toe Gram Stain - Final 07/28/24 19:15 Wound - Toe Wound Culture - Final Staphylococcus aureus Radiography Diagnostic Testing: Radiology Impression Toe X-Ray 07/31/24 06:30 IMPRESSION: Fluoroscopic guidance was used intraoperatively. Please refer to the operative note for further details. Reading Location: [facility] Foot X-Ray 07/31/24 08:29 IMPRESSION: Postoperative changes as above. Reading Location: [facility] Physical Exam Const alert, oriented x3 and no apparent distress General Appearance: cooperative HEENT normocephalic Eyes General Eye: normal appearance of both eyes Neck General: normal visual inspection Lymph Lymphatic: no lymphadenopathy noted and no lymphedema noted Resp normal respiratory effort Cardio regular rate and regular rhythm Extremity no calf tenderness Extremity Narrative: Left lower extremity: Vascular: DP and PT pulses palpable. CFT less than 4 seconds to the digits. Normal temperature gradient. Hair growth is diminished to digits. Neurologic: Gross sensation intact. Protective sensation diminished to the foot consistent with diabetic peripheral polyneuropathy Musculoskeletal: Muscle strength 5 of 5 age-appropriate. There is decreased range of motion of the ankle joint in dorsiflexion with the knee extended without pain or crepitus. There is decreased range of motion of the first MTPJ without pain or crepitus. There is pain with range of motion of the IPJ of the hallux. Pain to palpation about the distal phalanx of the hallux. Dermatologic: Sutures intact at left hallux amputation stump. There is some mild postoperative edema of the digit. Erythema has resolved at the digit site. No signs of infection. Skin no rashes or lesions noted and skin turgor normal Neuro moves all extremities Assessment & Plan Assessment/Plan (1) Open wound of right great toe with damage to nail: (2) Displaced unspecified fracture of left lesser toe(s), initial encounter for closed fracture: (3) Osteomyelitis, unspecified: (4) Cellulitis of left toe: (5) Diabetes mellitus with diabetic polyneuropathy: (6) Type 2 diabetes mellitus with foot ulcer: PLAN: Plan Patient seen and evaluated He is s/p distal hallux amputation of the left foot at the interphalangeal joint. DOS: 07/31/24. POD #1 Left foot: Sutures intact at left hallux amputation stump. There is some mild postoperative edema of the digit. Erythema has resolved at the digit site. No signs of infection. WBC currently 9.2 Last recorded A1c 13.1 on 03/30/2022. Updated HgbA1c was 11.1% on 07/28/2024 Currently on IV vancomycin/ciprofloxacin due to allergies to PCN and cephalosporins Radiograph obtained of the left foot on 07/28/24 demonstrating soft tissue edema of the first digit suggestive of cellulitis. Destruction of the head and neck of the distal phalanx worrisome for osteomyelitis. I reviewed his radiographs of the left foot. There is soft tissue edema about the left hallux. I do feel there is a crush fracture of the distal phalanx but with addition of nailbed laceration and damage osteomyelitis is highly likely given 4 weeks of open wound. MRI of the left foot was performed on 07/29/2024 demonstrating comminuted fracture of the distal phalanx of the left hallux in addition to cortical destruction consistent with osteomyelitis on T1 and T2 imaging. Proceeded forward with amputation as stated above to treat underlying osteomyelitis. Dressings changed today with Betadine soaked Adaptic, 4 x 4 gauze, Kerlix, specialist cast padding, and 4 inch Zay wrap rolled onto the foot. Patient may be weightbearing to left heel with surgical shoe for transfers/bathroom privileging. Medicine team following for medical management of his diabetes, they are greatly appreciated and their assistance Wound nurse consulted for assistance in dressing changes. Recommended he keep all dressings clean, dry, and intact to the left foot. To continue to elevate left foot at all times of rest for postoperative edema control Permitted to ambulate in surgical shoe but has been advised this is more for bathroom privileges and transition to bed or living room as surgical site continues to heal. Amputation site demonstrated clean margin after surgical resection of the IPJ with remaining healthy tissue present following debridement. Recommend oral antibiotic at discharge. From podiatry standpoint he is ready for discharge and will continue to follow with me in office for postoperative care. Jr. Cathy Cronin.P.M. [facility] [phone]
--- NOTE | 2024-08-01 08:16 | WOUNDNOTE ---
wound photo: left great toe
--- NOTE | 2024-08-01 08:17 | WOUNDNOTE ---
wound photo: left great toe
--- NOTE | 2024-08-01 09:35 | NURSING ---
This RN is aware of Vital Signs taken by Sandrine Renee this morning.
[2024-08-01] MEDS: Ciprofloxacin 400 MG/200 ML BAG 200 MG IV (09:36)
--- NOTE | 2024-08-01 10:47 | CASEMGMT ---
Addendum entered by Maura Rehman 08/01/24 17:33: Pt interested in [facility] referral. Made aware [facility] is not accepting new pt's at this time. He states would be willing to be placed on a waiting list, if possible. Order placed and note attached re: same. Addendum entered by Maura Rehman 08/01/24 16:58: Per Brooke in the pharmacy, ETOH swabs are not covered by insurance and cost is $4.02. Pt states he does not want to purchase that today. Pharmacy made aware. Glucometer w/testing supplies have been delivered to pt's room. Addendum entered by Maura Rehman 08/01/24 15:25: 3: 15 PM: Per Dr Mcdonough, pt safe to drive self home, as long as he can physically drive. Pt made aware and is thankful for this. Call placed to [facility] and [facility] transport cancelled for today. Addendum entered by Maura Rehman 08/01/24 12:44: Pt would like cancel pending request for Dr Metzger as PCP, as he wishes to proceed with [facility]. Call placed to [facility] & spoke with Porsche. She states Dr Metzger just reviewed pt's chart and states is not able to follow pt as PCP. She was made aware this request was going to be cancelled as appts have been scheduled @ [facility]. Porsche states that is who Dr Metzger was going to recommend as well. Pt made aware. Pt would like [facility] [employer] transportation set up for both appts to [facility] with Jayden GILLESPIE on 08/[address] Amaro on 10/27. Call placed to [facility] the Call Center. They do not have availability on 08/15, but they don on 10/27. This was notated on pt's dc plan and pt made aware. Pt states he will work on getting transportation on 08/15. Original Note: JEANNINE LIRA NOTE: Per Dr Mcdonough, pt to dc home today, pending ID consult/recommendations. Per [facility] wound nurse, pt will not need any dressing changes @ home. JEANNINE CM to room. Pt is aware he will most likely dc home today. He states he feels safe to discharge home. He has 15-20 steps to get up into the home, but states he had been doing heel-wt bearing at home prior to admission and can continue to do so. He is aware he is to maintain heel-wt bearing for transfers and bathroom privileges and that he is to wear the surgical shoe when up, and he should not ambulate/be up on his feet more than necessary. He voices understanding. Pt provided w/script for removable windshield placard with form and instructions to take to [facility] and made aware of process. He states he is currently borrowing his friend's van, which he drove to [facility] prior to admission and it is currently on [facility] property. He states he will have to work on getting someone to help him get it back home if he is unable to drive it home today. He would like to utilize [facility] van transport to take him home today, if unable to drive himself home. Call placed to [facility] @ the Call Center. 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 Pt made aware. Pt also provided w/script for glucometer and made aware Dr Mcdonough would like him to check his BS's 2 x's/day. He was made aware he can take to any pharmacy/drug-store that carries glucometers and that are in-network w/his insurance. He would like to get it from [facility] retail pharmacy, if possible. Call placed to Genet in the pharmacy. She states will need the script to run it through his insurance. Script sent to the retail pharmacy. Awaiting response. Discussed ambulation/heel-wt bearing status and how to maintain this. He states he would like to get a knee scooter, made aware insurance does not typically cover this item, but can be purchased OTC. He states he cannot afford this, but he would be willing to get a walker. He states he would not be able to maneuver the walker through his apartment d/t space, but he could use it when going to appointments and grocery store. Discussed DME companies, he chose [facility]. Script obtained and sent to [facility] via [employer]. Discussed therapy. Pt declines need for HHC or OP therapy @ this time. Made aware to discuss this w/podiatry or PCP (once he gets established) if he changes his mind in the future. No return call has been received from [facility] re: if Dr Metzger willing to follow pt as PCP. Call placed to Porsche at this time. No answer. VM left for her to return call to this RN CM. Pt states if Dr Metzger unable to follow him as his PCP, he would like assistance w/getting appt @ [facility]. He was made aware if he does get established w/[facility] then [facility] van transportation may be an option if he does not have transportation. He voiced appreciation of this. He states okay for RN CM to schedule appt @ [facility] at this time. Call placed to them. Dr Amaro is taking new pt's, but the 1st available appt is October 27 @ 1 PM, but they can place pt on cancellation list. Pt made aware and agreeable to this. Appt scheduled and placed on pt's dc plan. He plans to follow up w/podiatry @ discharge as well. He would like to get any new meds from [facility] retail pharmacy and utilize [id number]. [facility] updated. He denies having any further discharge needs or concerns at this time. Lalo ROSALES RN CM
[2024-08-01 11:00] VITALS: BP 96/64; PULSE 78; RESP 19; TEMP 36.6; O2SAT 97
[2024-08-01 11:29] LABS: Vancomycin, Trough Level 14.9 ug/mL (5.0-15.0)
--- NOTE | 2024-08-01 11:48 | PCM.RX.CS ---
Consult Antibiotic Management Pharmacy has been consulted to manage selected antibiotic: Vancomycin Type of Intervention Type of Consult: Follow-up Suspected Infection Suspected Infection: Osteomyelitis Prior Doses of Antibiotics Prior Doses of Antibiotics Received/Current Regimen: 1000MG of Vancomycin administered: 07/31/24 @ 1215 07/31/24 @ 1831 08/01/24 @ 0310 Labs Labs: Sodium 135 mmol/L (133-145) 08/01/24 04:46 Potassium 4.3 mmol/L (3.3-5.1) 08/01/24 04:46 Chloride 102 mmol/L (98-108) 08/01/24 04:46 Carbon Dioxide 22.2 mmol/L (21.0-32.0) 08/01/24 04:46 Anion Gap 11 (5-15) 08/01/24 04:46 BUN 15 mg/dL (4-19) 08/01/24 04:46 Creatinine 0.69 mg/dL (0.70-1.20) L 08/01/24 04:46 Est GFR (MDRD) Non-Af 107 (>60) 08/01/24 04:46 BUN/Creatinine Ratio 22.3 RATIO (10-20) H 08/01/24 04:46 Glucose 175 mg/dL (70-99) H 08/01/24 04:46 Vancomycin Trough 14.9 ug/mL (5.0-15.0) 08/01/24 10:37 Microbiology Microbiology: Microbiology 07/28/24 16:50 Blood Culture (Wb) - Anticubital Right Blood Culture - Preliminary No growth in 48 hours. 07/28/24 16:54 Blood Culture (Wb) - Anticubital Left Blood Culture - Preliminary No growth in 48 hours. 07/28/24 19:15 Wound - Toe Gram Stain - Final 07/28/24 19:15 Wound - Toe Wound Culture - Final Staphylococcus aureus Dosing Weight Weight used for dosin kg Estimated Creatinine Clearance Estimated Creatinine Clearance: 120 Goal Trough Goal Trough: 15-20 mcg/mL Pharmacy Plan for Drug Dosing Pharmacy Plan for Drug Dosing: Vancomycin 1000mg every 8 hours Pharmacy Service will continue to monitor and adjust dosing as required. Follow-Up Labs Follow-Up Labs: Trough: Vancomycin Date/Time Labs Ordered Labs to be done on [date and time ordered]: 08/02/24 @ 1130
[2024-08-01 12:07] LABS: Bedside Glucose 235 mg/dL (74-106)
--- NOTE | 2024-08-01 14:24 | CON.PCM.ID_ITS ---
Assessment & Plan Assessment/Plan (1) Diabetes mellitus with diabetic polyneuropathy: (2) Osteomyelitis, unspecified: PLAN: Now s/p OR 07/31/24 for L 1st toe amputation by Dr. Garner. Wound cx with mssa. On vanc/cipro. Tolerated zosyn here in the past, had reaction to cefepime in ED. Cont vanc/cipro for now. Will follow, thank you HPI Consult Data Date of Consult: 08/01/24 HPI Narrative Reason for Consultation: osteo HPI Narrative: LIA PALM, is a 59 M with DM neuropathy, dropped an I beam onto his R 1st toe a month ago. Got some abx which helped briefly. Over past week, pain became severe, had increased redness, drainage, odor. Some chills. Came to ED, had reported anaphylactic reaction with cefepime (chest tightness, n/v). Now on vanc/cipro s/p OR 07/31 for amputation. Full ROS performed and neg except as noted above. [facility] Medical History Kidney stones Complex regional pain syndrome type 1 affecting left hand Tenosynovitis of wrist flexor Necrotizing fasciitis of hand COPD (chronic obstructive pulmonary disease) Hernia Depression Anxiety PTSD (post-traumatic stress disorder) Diabetes Home Medications ?Medication ?Instructions ?Recorded ?Last Taken ?Type blood-glucose meter (OneTouch #1 ea 02/16/22 Unknown R x Verio Flex Meter) pen needle,diabetic dual safty 30 #100 ea 02/16/22 Unk nown Rx gauge x 3/16 (BD AutoShield Duo Pen Needle) BD AutoShield Duo Pen Needle 30 #100 ea 03/30/22 Unkno wn Rx gauge x 3/16 (pen needle,diabetic dual safty) blood sugar diagnostic (OneTouch #100 ea 03/30/22 Unkn own Rx Verio test strips) lancets 26 gauge (Easy Touch #200 ea 03/30/22 Unknown Rx Safety Lancets) hydroxyzine HCl 25 mg tablet 25 mg PO Q8H PRN anxiety, 03/02/23 07/27/24 Rx irritability, restlessness #21 tabs Allergy/AdvReac Type Severity Reaction Status Date / Time cefepime (From Maxipime) Allergy Severe Chest Verified 07/28/24 18:38 tightness amoxicillin Allergy Anaphylaxis Verified 05/07/23 14:18 Penicillins (PCN) Allergy Anaphylaxis Verified 05/07/23 14:18 aspirin (ASA) AdvReac Upset Verified 05/07/23 14:18 Stomach bee venom protein (honey bee) AdvReac Anaphylaxis Verified 05/07/23 14:18 ibuprofen AdvReac Upset Verified 05/07/23 14:18 Stomach oxycodone AdvReac Upset Verified 05/07/23 14:18 Stomach Family History Mother Diabetes Father Diabetes Cancer kidney Kidney disease Surgical History History of incision and drainage History of back surgery Hx of neck surgery Social History household members: none current occupational status: disabled 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 Smoking Status: Never smoker Electronic Cigarette Use: not used alcohol intake: former year quit: 2007 substance use type: other details: reports unintentional use of methamphetamine in the past what type of physical activity do you participate in: none do you feel safe at home: Yes Physical Exam Const alert, oriented x3 and no apparent distress General Appearance: cooperative HEENT normocephalic and head/scalp atraumatic Eyes PERRL and EOMs intact bilaterally Neck supple and No nodes Resp normal air movement and clear to auscultation bilaterally Cardio regular rate and regular rhythm GI soft to palpation, non-tender and non-distended Extremity General Extremity: edema Skin Skin Narrative: reviewed photos Neuro CN's II-XII intact bilaterally Lab / Micro Data Attestation: I reviewed the patient's lab results. 08/01/24 04:46 08/01/24 04:46 Labs: Laboratory Results - last 24 hr 07/31/24 16:31: POC Glucose 190 H 07/31/24 21:14: POC Glucose 222 H 08/01/24 04:46: WBC 9.2, RBC 4.28 L, Hgb 12.8 L, Hct 38.3 L, MCV 89.5, MCH 29.9, MCHC 33.4, RDW Std Deviation 40.7, RDW Coeff of Mariza 12.5, Plt Count 183, MPV 9.2, Immature Gran % (Auto) 0.900, Neut % (Auto) 66.9, Lymph % (Auto) 19.4, [place] % (Auto) 9.8, Eos % (Auto) 2.5, Baso % (Auto) 0.5, Absolute Neuts (auto) 6.2, Absolute Lymphs (auto) 1.79, Nucleated RBC % 0, Sodium 135, Potassium 4.3, Chloride 102, Carbon Dioxide 22.2, Anion Gap 11, BUN 15, Creatinine 0.69 L, Estim Creat Clear Calc 120.49, Est GFR (MDRD) Non-Af 107, BUN/Creatinine Ratio 22.3 H, Glucose 175 H, Calcium 8.9 08/01/24 06:32: POC Glucose 220 H 08/01/24 10:37: Vancomycin Trough 14.9 08/01/24 11:46: POC Glucose 235 H
[2024-08-01 17:00] VITALS: BP 106/75; PULSE 77; RESP 17; TEMP 36.8; O2SAT 97
[2024-08-01 17:25] LABS: Bedside Glucose 164 mg/dL (74-106)
[2024-08-01] MEDS: Juven (unflavored) Packet 1 PACKET PO (18:10)
[2024-08-01 20:54] VITALS: BP 132/69; PULSE 77; RESP 17; TEMP 36.9; O2SAT 99
[2024-08-02] MEDS: 0.9% Normal Saline (100mL Bag) 100 ML 15 ML IV ×2 (00:02→10:04)
[2024-08-02 00:39] LABS: Bedside Glucose 201 mg/dL (74-106)
[2024-08-02 03:05] VITALS: BP 121/73; PULSE 87; RESP 15; TEMP 37.1; O2SAT 93
[2024-08-02] MEDS: Vancomycin IV 1,000 MG/200 ML BAG 200 MG IV ×3 (03:12→18:38)
[2024-08-02] MEDS: Insulin Lispro 100 UNIT/ML INSULN.PEN SC ×4 (06:22→22:11)
[2024-08-02] MEDS: Acetaminophen 500 MG Tablet 1000 MG PO ×3 (06:25→22:12)
[2024-08-02 06:45] LABS: Bedside Glucose 181 mg/dL (74-106)
--- NOTE | 2024-08-02 08:30 | PCM.PN.HOSP ---
Reason for Visit Reason for Visit: Diagnoses Type 2 diabetes mellitus with diabetic polyneuropathy (07/28/24) Type 2 diabetes mellitus with foot ulcer (07/28/24) Cellulitis of left toe (07/28/24) Non-pressure chronic ulcer of other part of unspecified foot with unspecified severity (07/28/24) Osteomyelitis, unspecified (07/28/24) Chest pain, unspecified (07/28/24) Unspecified open wound of right great toe with damage to nail, initial encounter (07/28/24) Unspecified open wound of left great toe with damage to nail, initial encounter (07/28/24) Displaced unspecified fracture of left lesser toe(s), initial encounter for closed fracture (07/28/24) Subjective Subjective Feeling well. No issues overnight. Objective Data Objective Data Vital Signs: Vital Signs Temp Pulse Resp BP Pulse Ox O2 Del Method 37.1 C 87 15 121/73 H 93 Room Air 08/02/24 03:05 08/02/24 03:05 08/02/24 03:05 08/02/24 03:05 08/02/24 03:05 08/02/24 03:05 Oxygen Delivery Method Room Air Weight: 74.4 kg Body Mass Index (BMI) 23.5 Intake & Output: Intake and Output for Last 24 Hours 07/31/24 08/01/24 08/02/24 23:59 23:59 23:59 Intake Total 1525.00 / 1525.00 2400 / 2400 850 / 850 Output Total 2725 / 2725 1175 / 1175 Balance 1525.00 / 550.00 -325 / -325 -325 / -325 Lab / Micro Data 08/01/24 04:46 08/01/24 04:46 Labs: Laboratory Results - last 24 hr 08/01/24 10:37: Vancomycin Trough 14.9 08/01/24 11:46: POC Glucose 235 H 08/01/24 17:04: POC Glucose 164 H 08/01/24 21:52: POC Glucose 201 H 08/02/24 06:22: POC Glucose 181 H Micro: Microbiology 07/31/24 09:04 Bone - Great Toe Gram Stain - Final 07/31/24 09:04 Bone - Great Toe Wound Culture - Preliminary Staphylococcus aureus Coag Negative Staph 07/28/24 16:50 Blood Culture (Wb) - Anticubital Right Blood Culture - Preliminary No growth in 48 hours. 07/28/24 16:54 Blood Culture (Wb) - Anticubital Left Blood Culture - Preliminary No growth in 48 hours. 07/28/24 19:15 Wound - Toe Gram Stain - Final 07/28/24 19:15 Wound - Toe Wound Culture - Final Staphylococcus aureus Physical Exam Const alert and no apparent distress HEENT head/scalp atraumatic and moist oral mucous membranes Resp normal respiratory effort, no retractions, no use of accessory muscles and clear to auscultation bilaterally Cardio regular rate and S1 normal heart sound Neuro Sensorium / Orientation: awake Assessment & Plan Assessment/Plan (1) Osteomyelitis, unspecified: PLAN: Left first digit osteomyelitis and cellulitis. Podiatry consulted. Surgery 07/31 amputation of the distal phalanx of the left hallux at the IP joint. MRI destruction of the distal phalanx of left 1st toe Abx with cipro and vancomycin. DC cipro. Wound culture 07/28 positive for MSSA. Surgical Cx on the showing S. 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 Surgical shoe for bathroom privileges and transition to bed. (2) Chest pain: PLAN: EKG reviewed and was unremarkable. Chest pain reproducible. No additional work up PLAN: Plan DM2: uncontrolled. a1c 11.6 glargine 20 units + SSI. VTE prophylaxis: LMWH. Disposition: to home pending final wound cultures. Charges/Coding Visit Charges Inpatient E&M: 51645 [facility] L1
[2024-08-02 09:50] VITALS: BP 119/71; PULSE 87; RESP 17; TEMP 36.7; O2SAT 97
[2024-08-02] MEDS: Juven (unflavored) Packet 1 PACKET PO ×2 (10:04→17:24)
[2024-08-02] MEDS: Vancomycin Trough/Random Due 1 LAB MC (12:32)
[2024-08-02 13:09] LABS: Vancomycin, Trough Level 14.2 ug/mL (5.0-15.0)
[2024-08-02 13:58] LABS: Bedside Glucose 177 mg/dL (74-106)
[2024-08-02 15:00] VITALS: BP 131/67; PULSE 71; RESP 16; TEMP 36.6; O2SAT 97
--- NOTE | 2024-08-02 15:01 | PCM.RX.CS ---
Consult Antibiotic Management Pharmacy has been consulted to manage selected antibiotic: Vancomycin Type of Intervention Type of Consult: Follow-up Labs Labs: Sodium 135 mmol/L (133-145) 08/01/24 04:46 Potassium 4.3 mmol/L (3.3-5.1) 08/01/24 04:46 Chloride 102 mmol/L (98-108) 08/01/24 04:46 Carbon Dioxide 22.2 mmol/L (21.0-32.0) 08/01/24 04:46 Anion Gap 11 (5-15) 08/01/24 04:46 BUN 15 mg/dL (4-19) 08/01/24 04:46 Creatinine 0.69 mg/dL (0.70-1.20) L 08/01/24 04:46 Est GFR (MDRD) Non-Af 107 (>60) 08/01/24 04:46 BUN/Creatinine Ratio 22.3 RATIO (10-20) H 08/01/24 04:46 Glucose 175 mg/dL (70-99) H 08/01/24 04:46 Vancomycin Trough 14.2 ug/mL (5.0-15.0) 08/02/24 11:50 Microbiology Microbiology: Microbiology 07/31/24 09:04 Bone - Great Toe Gram Stain - Final 07/31/24 09:04 Bone - Great Toe Wound Culture - Preliminary Staphylococcus aureus Coag Negative Staph 07/28/24 16:50 Blood Culture (Wb) - Anticubital Right Blood Culture - Preliminary No growth in 48 hours. 07/28/24 16:54 Blood Culture (Wb) - Anticubital Left Blood Culture - Preliminary No growth in 48 hours. 07/28/24 19:15 Wound - Toe Gram Stain - Final 07/28/24 19:15 Wound - Toe Wound Culture - Final Staphylococcus aureus Pharmacy Plan for Drug Dosing Pharmacy Plan for Drug Dosing: VANCOMYCIN LEVEL RECEIVED Current Vancomycin Dose: 1000mg IV Q8h Number of Doses Received: 14 (of current dose) Vancomycin Level: 14.2 Hours Since Last Dose: 8.5hr Renal Function: 0.69 Renal Function Trend: stable Lab/Micro: Wcx growing staph spp. Vancomycin Plan/Comments: patient had a trough drawn which resulted in a trough of 14.2 (goal 15-20). The lab was 8.5hrs from last dose. Patient is stable, will continue current dose and recheck a trough in a couple days. Patient's trough likely is within therapeutic goal of 15-20 if checked an hour earlier. Continue 1000mg IV Q8h at this time. Pending Level: 08/04/24 @1038 Pharmacy Service will continue to monitor and adjust dosing as required.
[2024-08-02 18:44] LABS: Bedside Glucose 213 mg/dL (74-106)
[2024-08-02 20:21] VITALS: BP 129/80; PULSE 86; RESP 15; TEMP 36.7; O2SAT 96
[2024-08-02 22:37] LABS: Bedside Glucose 209 mg/dL (74-106)
--- NOTE | 2024-08-03 02:21 | NURSING ---
0150: LFA iv infiltrated. obtained iv kit to start new iv. pt refusing. informed pt of 0300 vancomycin. pt refusing. 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 will check back with patient to see if he might change his mind on starting a new iv.
[2024-08-03 05:00] VITALS: BP 119/72; PULSE 80; RESP 15; TEMP 36.4; O2SAT 98
[2024-08-03] MEDS: Acetaminophen 500 MG Tablet 1000 MG PO (06:23)
[2024-08-03 06:45] LABS: Bedside Glucose 166 mg/dL (74-106)
--- NOTE | 2024-08-03 07:25 | PN.HOSP_ITS ---
Reason for Visit Reason for Visit: Diagnoses Type 2 diabetes mellitus with diabetic polyneuropathy (07/28/24) Type 2 diabetes mellitus with foot ulcer (07/28/24) Cellulitis of left toe (07/28/24) Non-pressure chronic ulcer of other part of unspecified foot with unspecified severity (07/28/24) Osteomyelitis, unspecified (07/28/24) Chest pain, unspecified (07/28/24) Unspecified open wound of right great toe with damage to nail, initial encounter (07/28/24) Unspecified open wound of left great toe with damage to nail, initial encounter (07/28/24) Displaced unspecified fracture of left lesser toe(s), initial encounter for closed fracture (07/28/24) Subjective Subjective Feeling well. Anxious to go home. Objective Data Objective Data Vital Signs: Vital Signs Temp Pulse Resp BP Pulse Ox O2 Del Method 36.4 C L 80 15 119/72 98 Room Air 08/03/24 05:00 08/03/24 05:00 08/03/24 05:00 08/03/24 05:00 08/03/24 05:00 08/03/24 05:00 Oxygen Delivery Method Room Air Weight: 74.4 kg Body Mass Index (BMI) 23.5 Intake & Output: Intake and Output for Last 24 Hours 08/01/24 08/02/24 08/03/24 23:59 23:59 23:59 Intake Total 2400 / 2400 2651.75 / 2651.75 Output Total 2725 / 2725 2024 / 2024 Balance -325 / -325 626.75 / 626.75 Lab / Micro Data 08/01/24 04:46 08/01/24 04:46 Labs: Laboratory Results - last 24 hr 08/02/24 11:50: Vancomycin Trough 14.2 08/02/24 13:34: POC Glucose 177 H 08/02/24 17:23: POC Glucose 213 H 08/02/24 22:08: POC Glucose 209 H 08/03/24 06:21: POC Glucose 166 H Micro: Microbiology 07/31/24 09:04 Bone - Great Toe Gram Stain - Final 07/31/24 09:04 Bone - Great Toe Wound Culture - Final Staphylococcus aureus Staphylococcus epidermidis 07/28/24 16:54 Blood Culture (Wb) - Anticubital Left Blood Culture - Final No growth in 5 days. 07/28/24 16:50 Blood Culture (Wb) - Anticubital Right Blood Culture - Final No growth in 5 days. 07/28/24 19:15 Wound - Toe Gram Stain - Final 07/28/24 19:15 Wound - Toe Wound Culture - Final Staphylococcus aureus Physical Exam Const alert and no apparent distress Extremity Extremity Narrative: left foot wrapped. surgical shoe in place. Assessment & Plan Assessment/Plan (1) Osteomyelitis, unspecified: PLAN: Left first digit osteomyelitis and cellulitis. Podiatry consulted. Surgery 07/31 amputation of the distal phalanx of the left hallux at the IP joint. MRI destruction of the distal phalanx of left 1st toe Inpatient w vancomycin. Discharge with doxycycline. Wound culture 07/28 positive for MSSA. Surgical Cx on the showing MSSA and S. epidermidis. Surgical shoe for bathroom privileges and transition to bed. (2) Chest pain: PLAN: Post-operative and transient. EKG reviewed and was unremarkable. Chest pain reproducible. No additional work up PLAN: Plan DM2: uncontrolled. * a1c 11.6 * glargine 20 units + SSI. VTE prophylaxis: LMWH. Disposition: to home
[2024-08-03] MEDS: Juven (unflavored) Packet 1 PACKET PO (08:34)
[2024-08-03 08:48] LABS: Bedside Glucose 162 mg/dL (74-106)
--- NOTE | 2024-08-03 09:35 | DS.PCM_ITS ---
Providers Date of Admission: 07/28/24 Primary Care Physician: Janice Primary Care Phys Consultations 07/28/24 19:58 Consult: Onc/Wound/attorney law clerk Routine Comment: Consult: Podiatry Routine Consulting Provider: Barron Garner Reason for Consult: osteo EMERGENT Consult: No Notified: Yes Date Notified: 07/28/24 Time Notified: 19:25 Method of Notification: ED Physician Initiated 07/31/24 14:20 Consult: Infectious Disease Routine Consulting Provider: Phu Hodge Reason for Consult: right great toe osteomyelitis. EMERGENT Consult: No Notified: Yes Date Notified: 07/31/24 Time Notified: 14:21 Method of Notification: Text Reason For Visit: MILDRED OF TOE Diagnosis Discharge Diagnosis (1) Osteomyelitis, unspecified: Status: Acute Code(s): M86.9 - Osteomyelitis, unspecified Plan: Left first digit osteomyelitis and cellulitis. Podiatry consulted. Surgery 07/31 amputation of the distal phalanx of the left hallux at the IP joint. MRI destruction of the distal phalanx of left 1st toe Inpatient w vancomycin. Discharge with doxycycline. Wound culture 07/28 positive for MSSA. Surgical Cx on the showing MSSA and S. epidermidis. Surgical shoe for bathroom privileges and transition to bed. (2) Chest pain: Status: Acute Code(s): R07.9 - Chest pain, unspecified Plan: Post-operative and transient. EKG reviewed and was unremarkable. Chest pain reproducible. No additional work up Plan DM2: uncontrolled. * a1c 11.6 * glargine 20 units + SSI. VTE prophylaxis: LMWH. Disposition: to home Medications at Discharge Home Medications blood-glucose meter (OneTouch Verio Flex Meter) #1 ea 02/16/22 pen needle,diabetic dual safty 30 gauge x 3/16 (BD AutoShield Duo Pen Needle) #100 ea 02/16/22 BD AutoShield Duo Pen Needle 30 gauge x 3/16 (pen needle,diabetic dual safty) #100 ea 03/30/22 blood sugar diagnostic (OneTouch Verio test strips) #100 ea 03/30/22 lancets 26 gauge (Easy Touch Safety Lancets) #200 ea 03/30/22 hydroxyzine HCl 25 mg tablet 25 mg PO Q8H PRN anxiety, irritability, restlessness #21 tabs 11/10/23 doxycycline monohydrate 100 mg capsule 100 mg PO BID #14 caps 08/03/24 insulin glargine-yfgn 100 unit/mL (3 mL) subcutaneous pen 25 unit (0.25 mL) subcut QHS #15 mL 08/03/24 oxycodone 5 mg tablet 5 mg PO Q6H PRN pain (scale score 7-10) 3 days #12 tabs 08/03/24 pen needle, diabetic 29 gauge x 1/2 (Pen Needle) #100 ea 08/03/24 Hospital Course Operations - (Amputation of the distal phalanx of the left hallux at the interphalangeal joint) Summary of Care Provided Minutes Spent on Discharge: 32 Hospital Course: Patient presents with cellulitis and osteomyelitis of the left great toe. Patient underwent amputation of the distal phalanx of the left hallux of the interphalangeal joint. On July 31. Patient did well. Cultures grew out MSSA as well as Staph epidermidis. Patient be discharged to complete course of doxycycline. Patient will need to wear a surgical shoe with bathroom privileges. Weight / BMI Weight Weight: 74.4 kg Body Mass Index (BMI) 23.5 ABG / Lab / Microbiology Data 08/01/24 04:46 08/01/24 04:46 Laboratory: Laboratory Results - last 24 hr 08/02/24 11:50: Vancomycin Trough 14.2 08/02/24 13:34: POC Glucose 177 H 08/02/24 17:23: POC Glucose 213 H 08/02/24 22:08: POC Glucose 209 H 08/03/24 06:21: POC Glucose 166 H 08/03/24 08:20: POC Glucose 162 H Microbiology: Microbiology 07/31/24 09:04 Bone - Great Toe Gram Stain - Final 07/31/24 09:04 Bone - Great Toe Wound Culture - Final Staphylococcus aureus Staphylococcus epidermidis 07/28/24 16:54 Blood Culture (Wb) - Anticubital Left Blood Culture - Final No growth in 5 days. 07/28/24 16:50 Blood Culture (Wb) - Anticubital Right Blood Culture - Final No growth in 5 days. 07/28/24 19:15 Wound - Toe Gram Stain - Final 07/28/24 19:15 Wound - Toe Wound Culture - Final Staphylococcus aureus D/C Instructions Discharge Diet: 2000 Calorie Control Diet Weight Bearing Status: - (Heel weightbearing left foot. Surgical shoe on left.) DC O2, CPAP, BIPAP Needs Home O2 Discharge instructions: No Meaningful Use Info Meaningful Use Meaningful Use Diagnoses (Choose all that apply): None applicable Ischemic Stroke Statin Dosing Therapy Reference: STATIN DOSE THERAPY REFERENCE: * Patients > 75 years receive moderate or high dose statin therapy. * Patients 75 years or YOUNGER should receive HIGH intensity statin dose unless contraindicated. You will be required to document reason for non-treatment if statin daily dose does not meet guidelines. HIGH DOSE STATIN THERAPY DAILY Atorvastatin > than or = to 40 mg Rosuvastatin > than or = to 20 mg Amlodipine + Atorvastatin > than or = to 2.5/40 mg Ezetimibe + Simvastatin 10/80 mg Simvastatin 80mg Discharge Plan Admission Admit Date/Time: 07/28/24 18:40 Primary Reason for Your Visit: Osteomyelitis of the left great toe. Attending Provider: Loi Mcdonough Primary Care Provider: Care Physician,No Primary Consulting Providers: Barron Garner; Kenroy Herrera; Phu Hodge Discharge Orders/Prescriptions Prescriptions: New oxycodone 5 mg Tablet 5 mg PO Q6H PRN (Reason: pain (scale score 7-10)) 3 Days Qty: 12 0RF insulin glargine-yfgn 100 unit/mL (3 mL) Insulin Pen 25 unit subcut QHS Qty: 15 0RF (DME) pen needle, diabetic [Pen Needle] 29 gauge x 1/2 needle See Rx Instructions .Route Qty: 100 0RF Rx Instructions: As directed doxycycline monohydrate 100 mg capsule 100 mg PO BID Qty: 14 0RF Continued (DME) lancets [Easy Touch Safety Lancets] 26 gauge misc See Rx Instructions .Route Qty: 200 5RF Rx Instructions: 4x/day (DME) OneTouch Verio test strips Strip See Rx Instructions .Route Qty: 100 5RF Rx Instructions: BID (DME) BD AutoShield Duo Pen Needle 30 gauge x 3/16 needle See Rx Instructions .Route Qty: 100 5RF Rx Instructions: 4x/day hydroxyzine HCl 25 mg tablet 25 mg PO Q8H PRN (Reason: anxiety, irritability, restlessness) Qty: 21 0RF Rx Instructions: Take only as needed for anxiety, irritability, and restlessness. (DME) BD AutoShield Duo Pen Needle 30 gauge x 3/16 needle See Rx Instructions .Route Qty: 100 5RF Rx Instructions: BID (DME) blood-glucose meter [OneTouch Verio Flex meter] Misc See Rx Instructions .Route Qty: 1 0RF Rx Instructions: As directed Referrals / Follow Up: Myla Amaro MD [Med Staff - Active Staff] - 10/27/24 1:00 pm (Please arrive 30 min prior to appt for paperwork. The [facility] Van is scheduled to pick you up @ your home @ 11:30 AM for this appt. They will also take you back home after the appt. It is very important that you also go to the appt with Dr Amaro 10/27, to get established as a new patient. If you do not go to the appt with Dr Amaro, [facility] will not be able to establish you as a new patient. ) Lauri Bowers PA [Med Staff - Adv Practice Prof] - 08/15/24 12:30 pm (This is a hospital follow-up visit with JOSE MIGUEL Carpenter. Please arrive 30 min early for paperwork. The [facility] van transport is not available to take you to this appt, so you will need to find your own transportation. It is very important that you also go to the appt with Dr Amaro 10/27, to get established as a new patient. If you do not go to the appt with Dr Amaro, [facility] will not be able to establish you as a new patient. ) Barron Garner DPM [Med Staff - Active Staff] - Within 1 Week Disposition Disposition (needs filled in before D/C Order can be placed): Home, Self Care Charges/Coding Visit Charges Inpatient E&M: 98679 Disch Hosp >30min
[2024-08-03 11:53] LABS: Bedside Glucose 205 mg/dL (74-106)
[2024-08-03 12:01] VITALS: BP 115/74; PULSE 83; RESP 18; TEMP 36.7; O2SAT 97
== END 2024-08-03 13:13 | disposition home or self-care (01) | DRG 314 ==
LOC: ED 17:15 → MS3 18:55
PROVIDERS: Physician Assistant; Student in an Organized Health Care Education/Training Program; Admitting Provider Family Medicine; Emergency Provider Emergency Medicine; Referring Provider Family Medicine
PROC: 0Y6Q0Z3 Detachment at Left 1st Toe, Low, Open Approach (ICD-10-PCS; principal; 2024-07-31 07:15)
DX: E11.69 Type 2 diabetes mellitus with other specified complication (principal); M86.172 Other acute osteomyelitis, left ankle and foot; E11.65 Type 2 diabetes mellitus with hyperglycemia; B95.61 Methicillin susceptible Staphylococcus aureus infection as the cause of diseases classified elsewhere; B95.7 Other staphylococcus as the cause of diseases classified elsewhere; E11.621 Type 2 diabetes mellitus with foot ulcer; E11.42 Type 2 diabetes mellitus with diabetic polyneuropathy; E11.628 Type 2 diabetes mellitus with other skin complications; Z79.4 Long term (current) use of insulin; S97.112A Crushing injury of left great toe, initial encounter; S92.422B Displaced fracture of distal phalanx of left great toe, initial encounter for open fracture; R11.2 Nausea with vomiting, unspecified; L97.529 Non-pressure chronic ulcer of other part of left foot with unspecified severity; R07.89 Other chest pain; T36.1X5A Adverse effect of cephalosporins and other beta-lactam antibiotics, initial encounter; W20.8XXA Other cause of strike by thrown, projected or falling object, initial encounter; L03.032 Cellulitis of left toe; Z91.198 Patient's noncompliance with other medical treatment and regimen for other reason
CPT/HCPCS: 36415; 73630; 73660; 73718; 76000; 80048; 80202; 82962; 83036; 83605; 85025; 85652; 86140; 87015; 87040; 87070; 87075; 87077; 87102; 87116; 87186; 87205; 87206; 88305; 88311; 93005; 94668; 97116; 97162; 97166; 97530; 99284; A4216; J0744; J2405

== ENCOUNTER → 2024-08-27 | Outpatient (CLI) | payer MEDICAID, SELFPAY ==
[2024-08-27 16:17] LABS: Cholesterol 291 mg/dL (<=200); High Density Lipoprotein 48 mg/dL; Low Density Lipoprotein Calc. 161 mg/dL; PSA,Total - Annual Screen 1.76 ng/mL (0.02-4.00); Triglycerides 410 mg/dL; Very Low Density Lipoprotein 82 mg/dL (5-40); cholesterol:hdl ratio screen 6.05
== END | disposition home or self-care (01) ==
LOC: BIMLAB 13:54
PROVIDERS: PCP Physician Assistant; Referring Provider Physician Assistant; Visit Provider Physician Assistant
DX: E11.9 Type 2 diabetes mellitus without complications (principal); Z12.4 Encounter for screening for malignant neoplasm of cervix
CPT/HCPCS: 84153; 36415; 80061; G0103

== ENCOUNTER 2024-11-13 13:54 | Outpatient (RCR) | payer MEDICAID, SELFPAY ==
[2024-11-13 14:34] VITALS: BP 124/87; PULSE 100; RESP 18; TEMP 36.6
== END 2024-11-20 23:59 | disposition home or self-care (01) ==
LOC: WC 13:54
PROVIDERS: PCP Physician Assistant; Referring Provider Internal Medicine; Visit Provider Physician Assistant
DX: L97.212 Non-pressure chronic ulcer of right calf with fat layer exposed (principal); J44.9 Chronic obstructive pulmonary disease, unspecified; E11.42 Type 2 diabetes mellitus with diabetic polyneuropathy; T24.23 Burn of second degree of lower leg; X19.XXXS Contact with other heat and hot substances, sequela; Z79.899 Other long term (current) drug therapy; Z79.84 Long term (current) use of oral hypoglycemic drugs; Z87.891 Personal history of nicotine dependence
CPT/HCPCS: 99213; G0463

== ENCOUNTER 2024-11-27 14:29 | Outpatient (RCR) | payer MEDICAID, SELFPAY ==
[2024-11-27 14:51] VITALS: BP 137/91; PULSE 106; RESP 18; TEMP 37
== END 2024-12-21 23:59 | disposition home or self-care (01) ==
LOC: WC 14:29
PROVIDERS: PCP Physician Assistant; Referring Provider Internal Medicine; Visit Provider Physician Assistant
DX: L97.212 Non-pressure chronic ulcer of right calf with fat layer exposed (principal); E11.9 Type 2 diabetes mellitus without complications; T24.23 Burn of second degree of lower leg; X19.XXXS Contact with other heat and hot substances, sequela; T38.3X6A Underdosing of insulin and oral hypoglycemic [antidiabetic] drugs, initial encounter; Z91.148 Patient's other noncompliance with medication regimen for other reason
CPT/HCPCS: 97597